=== PATIENT | male | born 1970 | race Caucasian/White ===

== ENCOUNTER → 2018-02-15 12:55 | Outpatient (CLI) | payer BC, SELFPAY ==
[2018-02-15 14:05] LABS: Alanine Aminotransferase 45 U/L (12-78); Albumin Level 4.1 gm/dL (3.4-5.0); Albumin/Globulin Ratio 1.3 (1.1-1.8); Alkaline Phosphatase 130 U/L (46-116); Anion Gap 11.8 mEq/L (5-15); Aspartate Amino Transferase 15 U/L (15-37); Bilirubin,Total 0.7 mg/dL (0.2-1.0); Blood Urea Nitrogen 13 mg/dL (7-18); Calcium 8.8 mg/dL (8.5-10.1); Carbon Dioxide 26 mmol/L (21.0-32.0); Chloride 105 mmol/L (98-107); Chol/HDL Ratio 5.7 (1-3.5); Cholesterol 178 mg/dL (140-200); Creatinine,Serum 0.74 mg/dL (0.70-1.30); Estimated Glomerular Filt Rate 112 ml/min (>60); GFR (African American) 136 ML/MIN (>60); Globulin 3.1 gm/dl (1.3-3.2); Glucose 332 mg/dL (74-106); HDL Cholesterol 31 mg/dL (27-67); LDL Cholesterol 119 mg/dL (0-130); Potassium 3.8 mmoL/L (3.5-5.1); Sodium 139 mmol/L (136-145); Total Protein,Serum 7.2 gm/dL (6.4-8.2); Triglycerides 141 mg/dL (30-200); VLDL Cholesterol 28 mg/dL (0-40)
== END ==
PROVIDERS: Visit Provider Internal Medicine Adolescent Medicine
DX: E11.9 Type 2 diabetes mellitus without complications (principal); E78.5 Hyperlipidemia, unspecified
CPT/HCPCS: 36415; 80053; 80061; 83036

== ENCOUNTER → 2018-03-03 13:00 | Outpatient (CLI) | payer BC, SELFPAY ==
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
== END ==
PROVIDERS: Family Provider Internal Medicine Adolescent Medicine; PCP Internal Medicine Adolescent Medicine; Visit Provider Internal Medicine Adolescent Medicine
DX: M54.41 Lumbago with sciatica, right side (principal)
CPT/HCPCS: 72148; 76376

== ENCOUNTER → 2018-06-28 10:09 | Outpatient (CLI) | payer BC, SELFPAY ==
[2018-06-28 11:42] LABS: Alanine Aminotransferase 47 U/L (12-78); Albumin Level 3.9 gm/dL (3.4-5.0); Albumin/Globulin Ratio 1.3 (1.1-1.8); Alkaline Phosphatase 86 U/L (46-116); Anion Gap 13.4 mEq/L (5-15); Aspartate Amino Transferase 18 U/L (15-37); Bilirubin,Total 0.5 mg/dL (0.2-1.0); Blood Urea Nitrogen 22 mg/dL (7-18); Calcium 8.5 mg/dL (8.5-10.1); Carbon Dioxide 27 mmol/L (21.0-32.0); Chloride 106 mmol/L (98-107); Chol/HDL Ratio 5.1 (1-3.5); Cholesterol 180 mg/dL (140-200); Creatinine,Serum 0.79 mg/dL (0.70-1.30); Estimated Glomerular Filt Rate 104 ml/min (>60); GFR (African American) 126 ML/MIN (>60); Globulin 3.1 gm/dl (1.3-3.2); Glucose 139 mg/dL (74-106); HDL Cholesterol 35 mg/dL (27-67); LDL Cholesterol 121 mg/dL (0-130); Potassium 3.4 mmoL/L (3.5-5.1); Sodium 143 mmol/L (136-145); Triglycerides 122 mg/dL (30-200); VLDL Cholesterol 24 mg/dL (0-40)
[2018-06-28 12:21] LABS: Hemoglobin A1C 6.4 % (0.0-7.0)
[2018-06-30 10:52] LABS: Microalbumin, Urine 20.4 ug/mL (Not Estab.)
== END ==
PROVIDERS: Visit Provider Internal Medicine Adolescent Medicine
DX: E11.9 Type 2 diabetes mellitus without complications (principal); E78.5 Hyperlipidemia, unspecified
CPT/HCPCS: 36415; 80053; 80061; 82043; 83036

== ENCOUNTER → 2018-08-07 12:44 | Outpatient (CLI) | payer BC, SELFPAY ==
--- NOTE | 2018-08-07 12:57 | MR_ITS ---
MR angio neck wo con CLINICAL INDICATION: Severe headache ITS.REASON: NONINTRACTABLE EPISODIC HEADACHE ORDERING PHYSICIAN: Luis A Camilo MD PATIENT AGE: 47 years Comparison: None TECHNIQUE: 3-D yrio-pb-kalpfu images are obtained with multi slab reformats without contrast. FINDINGS: Cervical portion of the carotid arteries have an unremarkable appearance. No stenosis or aneurysm evident. The carotid bifurcations and internal carotids have an unremarkable appearance. Unremarkable. Vertebral. IMPRESSION: Negative MRA of the neck
--- NOTE | 2018-08-07 12:57 | MR_ITS ---
MR head/brain wo con HISTORY: ITS.REASON: NONINTRACTABLE EPISODIC HEADACHE ORDERING PHYSICIAN: Luis A Camilo MD PATIENT AGE: 47 years Comparison: 09/14/2010 TECHNIQUE: Standard multiplanar multiecho sequences are performed without contrast. FINDINGS: No midline shift, mass effect, intracranial hemorrhage, or hydrocephalus is evident. There is a small area of encephalomalacia in the right cerebellum posteriorly and medially. No evidence of acute infarction. Normal wilson-white matter differentiation with no abnormal white matter signal intensity evident. The cerebellopontine angles, cerebellum, and brainstem are unremarkable. The hippocampal gyri are unremarkable and the temporal horns are symmetric. The pituitary and optic size and have an unremarkable appearance. No cerebellar ectopia. No mastoid effusion or sinus air-fluid level IMPRESSION: No acute intracranial findings Small area of encephalomalacia in the right cerebellar region posteriorly unchanged from 09/14/2010
== END ==
PROVIDERS: PCP Internal Medicine Adolescent Medicine; Visit Provider Internal Medicine Adolescent Medicine
DX: R51 Headache (principal); R42 Dizziness and giddiness
CPT/HCPCS: 70547; 70551

== ENCOUNTER → 2018-09-25 09:53 | Outpatient (CLI) | payer BC, SELFPAY ==
[2018-09-25 10:38] LABS: Hemoglobin A1C 7.9 % (0.0-7.0)
[2018-09-25 11:07] LABS: Alanine Aminotransferase 61 U/L (12-78); Albumin Level 3.8 gm/dL (3.4-5.0); Albumin/Globulin Ratio 1.2 (1.1-1.8); Alkaline Phosphatase 134 U/L (46-116); Anion Gap 14.7 mEq/L (5-15); Aspartate Amino Transferase 14 U/L (15-37); Bilirubin,Total 0.5 mg/dL (0.2-1.0); Blood Urea Nitrogen 19 mg/dL (7-18); Calcium 8.5 mg/dL (8.5-10.1); Carbon Dioxide 27 mmol/L (21.0-32.0); Chloride 105 mmol/L (98-107); Chol/HDL Ratio 3.7 (1-3.5); Cholesterol 111 mg/dL (140-200); Creatinine,Serum 0.75 mg/dL (0.70-1.30); Estimated Glomerular Filt Rate 111 ml/min (>60); GFR (African American) 134 ML/MIN (>60); Globulin 3.1 gm/dl (1.3-3.2); Glucose 203 mg/dL (74-106); HDL Cholesterol 30 mg/dL (27-67); LDL Cholesterol 61 mg/dL (0-130); Potassium 3.7 mmoL/L (3.5-5.1); Sodium 143 mmol/L (136-145); Total Protein,Serum 6.9 gm/dL (6.4-8.2); Triglycerides 98 mg/dL (30-200); VLDL Cholesterol 20 mg/dL (0-40)
== END ==
PROVIDERS: Visit Provider Internal Medicine Adolescent Medicine
DX: E11.9 Type 2 diabetes mellitus without complications (principal)
CPT/HCPCS: 36415; 80053; 80061; 83036

== ENCOUNTER → 2018-11-17 10:18 | Outpatient (CLI) | payer BC, SELFPAY ==
[2018-11-17 11:09] LABS: Hemoglobin A1C 8.9 % (0.0-7.0)
[2018-11-17 11:45] LABS: Alanine Aminotransferase 52 U/L (12-78); Albumin Level 3.9 gm/dL (3.4-5.0); Albumin/Globulin Ratio 1.3 (1.1-1.8); Alkaline Phosphatase 122 U/L (46-116); Anion Gap 11.5 mEq/L (5-15); Aspartate Amino Transferase 17 U/L (15-37); Bilirubin,Total 0.6 mg/dL (0.2-1.0); Blood Urea Nitrogen 13 mg/dL (7-18); Calcium 8.6 mg/dL (8.5-10.1); Carbon Dioxide 28 mmol/L (21.0-32.0); Chloride 106 mmol/L (98-107); Chol/HDL Ratio 3.9 (1-3.5); Cholesterol 109 mg/dL (140-200); Creatinine,Serum 0.75 mg/dL (0.70-1.30); Estimated Glomerular Filt Rate 111 ml/min (>60); GFR (African American) 134 ML/MIN (>60); Globulin 2.9 gm/dl (1.3-3.2); Glucose 174 mg/dL (74-106); HDL Cholesterol 28 mg/dL (27-67); LDL Cholesterol 57 mg/dL (0-130); Potassium 3.5 mmoL/L (3.5-5.1); Sodium 142 mmol/L (136-145); Total Protein,Serum 6.8 gm/dL (6.4-8.2); Triglycerides 121 mg/dL (30-200); VLDL Cholesterol 24 mg/dL (0-40)
== END ==
PROVIDERS: Visit Provider Internal Medicine Adolescent Medicine
DX: E78.5 Hyperlipidemia, unspecified (principal); E11.9 Type 2 diabetes mellitus without complications; Z79.4 Long term (current) use of insulin; Z79.84 Long term (current) use of oral hypoglycemic drugs
CPT/HCPCS: 36415; 80053; 80061; 83036

== ENCOUNTER → 2019-07-26 11:09 | Outpatient (CLI) | payer BC, SELFPAY ==
--- NOTE | 2019-07-26 | CA_ITS ---
APPROVED REPORT Exam: Exercise Treadmill Technologist: kia chapin, Ht: 5 ft 8 in Wt: 200 lbs BSA: 2.04 m2 HR: 64 bpm BP: 170/115 mmHg Indications: CP Medical History Medications: Clonidine,,,,, Verapamil,,,,, Asa,,,,, Losartan,,,,, Lipitor,,,,, LanTUS,,,,, Hydroxyzine,,,,, Sertaline,,,,, Allergies: HCTZ Cardiac Risk Factors: HTN, Hyperlipidemia, Diabetes (insulin), FHX of CAD Stress Test Details Test: Bernardo HR Resting HR: 69 bpm Max Heart Rate (APMHR): 170 bpm Max HR Achieved: 132 bpm Target HR (85% APMHR): 144 bpm % of APMHR: 77 Recovery HR: 115 bpm BP Resting BP: 170/115 mmHg Max BP: 192/92 mmHg Recovery BP: 186.0/84.0 mmHg ECG Resting ECG: NSR, can't r/o old septal or high-lateral NV's Clinical Exercise duration: 09:15 min Highest Stage Achieved: Exercise capacity: 10.1 METs Stress ECG Conclusion Test stopped due to SOA and leg fatigue.. No chest pain, No arrhythmias or ectopy. ST within normal ST reponse to exercise. EKG portion of the exercise stress test is nondiagnostic as patient did not achieve the target heart rate. Images reported seperately. Test Summary REST . . . . . . . Standing REST . . . . . . . Sitting REST . . . . . . . Sitting REST 19:14 0.0 0.0 69 . 170/115 . . Stage 1 01:00 10.0 1.7 87 . . . . Stage 1 02:00 10.0 1.7 94 . . . . Stage 1 03:00 10.0 1.7 97 . 164/ 88 . . Stage 2 01:00 12.0 2.5 101 . . . . Stage 2 02:00 12.0 2.5 107 . . . . Stage 2 03:00 12.0 2.5 112 . 170/ 86 . . Stage 3 01:00 14.0 3.4 121 . . . . Stage 3 02:00 14.0 3.4 126 . . . . Stage 3 . . . . . . . Stage held Stage 3 03:00 14.0 3.4 130 . . . . Stage 3 . . . . . . . Stage resumed Stage 3 03:15 14.0 3.4 132 . . . Stop exercise at 09:15 RECOVERY 01:00 0.0 0.0 115 . . . . RECOVERY 02:00 0.0 0.0 94 . 186/ 84 . . RECOVERY 03:00 0.0 0.0 88 . 192/ 92 . . RECOVERY 04:00 0.0 0.0 86 . 192/ 92 . . RECOVERY 05:00 0.0 0.0 84 . 179/101 . . RECOVERY 06:00 0.0 0.0 83 . 179/101 . . RECOVERY 06:33 0.0 0.0 81 . 166/101 . . Electronically signed by : Xander Osman, 07/31/2019 15:29:44
--- NOTE | 2019-07-26 11:17 | NM_ITS ---
APPROVED REPORT Exam: Nuclear Stress Test Indication: abnormal ekg, angina Patient Location: Outpatient Stress Tech: Makenzie Smith [place] Tech:Sonia Johansen ARRVelia RT(R)(N) Ht: 5 ft 8 in Wt: 200 lbs HR: 64 bpm BP: 170/115 mmHg BSA: 2.04 m2 BMI: 30.4 History: abnormal ekg, angina Procedure: Patient exercised on Bernardo protocol 9:15 minutes and sec, resting heart rate 64 bpm, resting blood pressure 170/115 mmHg, with exercise maximum heart rate achived was 108 bpm which is Less than 85 % of the maximum predicted heart rate and blood pressure was 192/86 mmHg. Test was stopped due to Shortness of breath. Patient denied any complaint of chest pain. Patient has Good exercise capacity, achieved 10.1 METs of workload on treadmill, the blood pressure response to exercise was Adequate. Electrocardiogram Sinus rhythm, with exercise there is less than 1.[address] segment depression noted from the baseline EKG. The EKG portion of the exercise Myoview is nondiagnostic as patient did not achieve the target heart rate. Cardiac Stress and Resting SPECT Images: Cardiac Stress and Resting SPECT images were obtained using technetium 99m Myoview 32.9 mCi stress and 10.50 mCi at rest. Gated SPECT with analysis of segmental wall motion and calculation of the ejection fraction also done. Cardiac stress and resting SPECT images show uniform myocardial activity without segmental perfusion abnormality. Computer derived ejection fraction is 65% with no regional wall motion abnormality, right ventricle is normal size and contractility. Conclusion: 1. The EKG portion of the exercise Myoview is nondiagnostic as patient did not achieve the target heart rate, patient has adequate exercise capacity achieved 10.1 mets of workload on treadmill, the blood pressure response to exercise was adequate, there was no exercise-induced chest discomfort. 2. No scintigraphic evidence of reversible ischemia seen at this level of exercise, computer derived ejection fraction is 65% with no regional wall motion abnormality, right ventricle is normal size and contractility. Electronically signed by : Xander Osman, 08/03/2019 11:56:34
--- NOTE | 2019-07-26 13:41 | HMH.ITSHM ---
Current Home Medications as stated by this patient Marcello Gonzalez or asset protection representative. [] losartan varapamil metformin cardvediolo asa atorvastatin sertaline lantus
== END ==
PROVIDERS: PCP Internal Medicine Adolescent Medicine; Visit Provider Internal Medicine Adolescent Medicine
DX: R94.31 Abnormal electrocardiogram [ECG] [EKG] (principal); I20.9 Angina pectoris, unspecified
CPT/HCPCS: 78452; 93017; A9502

== ENCOUNTER → 2020-03-08 07:43 | Outpatient (CLI) | payer BC, SELFPAY ==
[2020-03-08 07:54] LABS: Basophils # 0.1 K/mm3 (0-0.2); Basophils % 0.9 % (0.1-2.0); Eosinophils # 0.2 K/mm3 (0.0-0.4); Eosinophils % 2.8 % (0.1-12.0); Hematocrit 42.9 % (42.0-52.0); Hemoglobin 15.3 g/dL (14.1-18.0); Lymphocytes # 1.8 K/mm3 (0.7-4.5); Lymphocytes % 27.1 % (10-50); Mean Corpuscular HGB Conc 35.6 g/dL (31.8-35.4); Mean Corpuscular Hemoglobin 32.7 pg (27.0-31.2); Mean Corpuscular Volume 91.9 fl (80-94); Mean Platelet Volume 7.7 fl (7.4-10.4); Monocytes # 0.4 K/mm3 (0.1-1.0); Monocytes % 6.3 % (1.7-9.3); Neutrophils # 4.2 K/mm3 (1.8-7.8); Platelet Count 146 K/mm3 (142-424); Red Blood Count 4.67 M/mm3 (4.60-6.20); Red Cell Distribution Width 13.1 % (11.5-17.5); White Blood Count 6.7 K/mm3 (4.8-10.8)
[2020-03-08 08:16] LABS: Chloride 97 mmol/L (98-107); Potassium 3.7 mmoL/L (3.5-5.1); Sodium 134 mmol/L (136-145)
[2020-03-08 08:19] LABS: Anion Gap 13.7 mEq/L (5-15); Blood Urea Nitrogen 13 mg/dl (9-20); Carbon Dioxide 27 mmol/L (22.0-30.0); Estimated Glomerular Filt Rate 175 ml/min (>60); GFR (African American) 212 ML/MIN (>60)
[2020-03-08 08:30] LABS: Glucose 494 mg/dl (74-100)
[2020-03-08 09:28] LABS: Coronavirus 19 IgG Antibody Negative (Negative); Coronavirus 19 IgM Antibody Negative (Negative)
== END ==
PROVIDERS: Visit Provider Urology
DX: Z01.818 Encounter for other preprocedural examination (principal); N47.1 Phimosis
CPT/HCPCS: 36415; 80048; 85025; 86328

== ENCOUNTER 2020-03-10 08:59 | Day surgery (SDC) | payer BC, SELFPAY ==
[2020-03-10] VITALS (12 sets, daily range): BP systolic 118–190; BP diastolic 78–103; PULSE 72–80; RESP 12–28; TEMP 22.2–36.7; O2SAT 89–99; BMI 29.2
[2020-03-10 10:24] LABS: POC Glucose,Bedside 240 (70-110)
--- NOTE | 2020-03-10 11:18 | HMH.ANESCL ---
[facility] Anesthesia Checklist - Structural Data Admitted From: Home Planned Operative Procedure/s: circumcision Consent for Planned Operative Procedure(s) Verified: Yes - Additional verifications Anesthesia Reactions: No Hx Blood Transfusions: Yes Blood Transfusion Reaction: No - Airway Assessment C-Spine Mobility Assessed: Yes TMJ Mobility Assessed: Yes Dentition: Good Dentition - Neurological Assessment Level of Consciousness: Awake, Alert, Appropriate - Anesthesia Plan Anesthesia Risk discussed: Yes Anesthesia Plan: Verified ASA Class: II Anesthesia Type: General [facility] History I have reviewed the patient's past medical history: Yes Medical History: Reports:: Depression, Diabetes Mellitus Type 2, Hyperlipidemia, Hypertension Denies:: Cancer, Diabetes Mellitus Type 1, Internal Pacemaker, MRSA, Seizures *Have you ever received a pneumonia vaccine?: No *Have you received a flu vaccine this season?: Yes Other Medical History: Denies: Blood Transfusion Reaction Anesthesia experience/problems:: none Other Surgeries: Yes: No Previous Surgery. No: Pacemaker Amputation: No Fractures: No - *Social History Last grade of school completed: High school graduate Smoking Status: Never smoker Alcohol Intake: never Substance Use Type: denies use *Occupational Status:: employed Housing: house Household Members: spouse *Travel in the last 8 weeks: Inside the [place] - Psychiatric History Pschychiatric History:: Reports:: Depression Family Hx:: Coronary Artery Disease, Diabetes, Heart Attack
--- NOTE | 2020-03-10 12:39 | P.PN_ITS ---
[facility] Anesthesia Record Part I Intake, IV Amount: 1,500 Estimated blood loss (mL): 0 Urine output (mL): 0 Blood Pressure: 118/79 SaO2: 94 Pulse Rate: 72 Respiratory Rate: 12 Temperature: 97.7 F Patient is:: Awake, Stable Stable to PACU at:: 13:35
--- NOTE | 2020-03-10 16:29 | HMH.ANESII ---
[facility] Anesthesia Record Part II Discharge Time: 13:05 Destination: Surgical Day Care (OP Surgery) PACU nurse assessment reviewed?: Yes Patient Condition:: Good Anesthesia Complications:: None Swallowing reflex intact?: Yes Cyanosis?: No Blood Pressure: 140/88 Pulse Rate: 77 Temperature: 98 F Mental Status: Alert & Oriented Pain level:: 0 Nausea and/or vomitting:: None Intake, IV Amount: 0
--- NOTE | 2020-03-10 16:59 | HMH.OPNOTE ---
Date of procedure: 03/10/20 Pre-op Diagnosis:: Penile phimosis Post-op Diagnosis:: Same Procedure performed:: Freehand circumcision Surgeon:: Aron Kahn MD OFFICE MANAGER EXECUTIVE ASSISTANT:: Marciano Hines Anesthesia: FLAKITA Estimated blood loss (mL): 10 Clinical Note:: 49-year-old white male with phimosis presents for circumcision. Operative findings:: Patient with penile phimosis. After incising the dorsal skin there is no evidence of any penile glans abnormalities. Operative note:: Patient taken to the operating room after informed consent was obtained. The operating table in the supine position and general anesthesia administered. Preoperative antibiotics and sequential compression devices placed. Patient then prepped and draped in the standard surgical fashion. A ring block was placed around the base of the penis with 30 cc of the local anesthetic. The foreskin was marked and a circular line while pulling back on the penile foreskin at the base of the penis and outlining around the branham of the glans. A straight clamp was then placed onto the dorsal foreskin back to the marked line and clamped for 30 seconds. Incision was then made along the skin that had been clamped. Minimal bleeding was noted. We then pulled the foreskin back and cleansed the glans as we are unable to do that before. We then pulled the foreskin back over the glans and Metzenbaum scissors used to incise the skin in a circumferential fashion. Skin was passed off but not sent for specimen as it appeared normal. Hemostasis been achieved of the underlying vasculature and a frenulotomy was made as well due to tethering. Skin was then reanastomosed with 3-0 chromic's. Frenulotomy was repaired with a 4-0 chromic. A good cosmetic result was noted. Compression dressing applied and over a Vaseline impregnated gauze. Sponge needle instrument count were correct at the end the case. Patient tolerated well and discharged home with routine instructions and medications. Condition: stable Disposition: PACU Specimens:: Foreskin Complications:: None
== END 2020-03-10 13:43 | disposition home or self-care (01) ==
PROVIDERS: PCP Internal Medicine Adolescent Medicine; Visit Provider Urology
PROC: (CPT 54161; principal; 2020-03-10 11:00)
DX: N47.1 Phimosis (principal); E11.9 Type 2 diabetes mellitus without complications; E78.5 Hyperlipidemia, unspecified; I10 Essential (primary) hypertension; F32.9 Major depressive disorder, single episode, unspecified; Z88.8 Allergy status to other drugs, medicaments and biological substances; Z79.82 Long term (current) use of aspirin; Z79.84 Long term (current) use of oral hypoglycemic drugs; Z79.899 Other long term (current) drug therapy; N48.1 Balanitis
CPT/HCPCS: 54161; 82962; 96374; J2405

== ENCOUNTER 2021-01-11 16:43 | Emergency (ER) | payer BC, SELFPAY ==
[2021-01-11 16:45] VITALS: BP 211/127; PULSE 98; RESP 18; TEMP 36.8; O2SAT 99; BMI 28.5
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
[2021-01-11 18:26] VITALS: BP 193/122
[2021-01-11 19:16] VITALS: BP 182/125; PULSE 85; RESP 16; TEMP 36.8; O2SAT 97
== END 2021-01-11 19:20 | disposition home or self-care (01) ==
PROVIDERS: Emergency Provider Emergency Medicine; PCP Internal Medicine Adolescent Medicine
DX: S00.83XA Contusion of other part of head, initial encounter (principal); S40.212A Abrasion of left shoulder, initial encounter; S00.03XA Contusion of scalp, initial encounter; V53.6XXA Passenger in pick-up truck or van injured in collision with car, pick-up truck or van in traffic accident, initial encounter; Y92.488 Other paved roadways as the place of occurrence of the external cause
CPT/HCPCS: 70150; 71046; 73030; 99282

== ENCOUNTER → 2021-07-01 16:52 | Outpatient (CLI) | payer BC, SELFPAY | PROVIDERS: PCP Internal Medicine Adolescent Medicine; Visit Provider Nurse Practitioner | DX: Z20.822 Contact with and (suspected) exposure to COVID-19 (principal) | CPT/HCPCS: C9803; U0003; U0005 ==

== ENCOUNTER → 2022-01-16 11:34 | Outpatient (CLI) | payer BC, SELFPAY ==
[2022-01-16 15:24] LABS: Alanine Aminotransferase 28 U/L (12-78); Albumin Level 3.9 g/dl (3.5-5.0); Albumin/Globulin Ratio 1.6 (1.1-1.8); Alkaline Phosphatase 93 U/L (38-126); Aspartate Amino Transferase 23 U/L (17-59); Bilirubin,Total 0.2 mg/dl (0.2-1.3); Blood Urea Nitrogen 19 mg/dl (9-20); Carbon Dioxide 33 mmol/L (22.0-30.0); Chloride 98 mmol/L (98-107); Estimated Glomerular Filt Rate 88 ml/min (>60); GFR (African American) 107 ML/MIN (>60); Globulin 2.5 g/dL (1.3-3.2); Glucose 251 mg/dl (74-100); Sodium 140 mmol/L (136-145); Total Protein,Serum 6.4 g/dl (6.3-8.2)
== END ==
PROVIDERS: PCP Internal Medicine Adolescent Medicine; Visit Provider Internal Medicine Adolescent Medicine
DX: E87.6 Hypokalemia (principal); E11.9 Type 2 diabetes mellitus without complications
CPT/HCPCS: 36415; 80053; 83036

== ENCOUNTER 2022-02-16 20:06 | Emergency (ER) | payer BC, SELFPAY ==
[2022-02-16 20:07] VITALS: BP 180/112; PULSE 100; RESP 16; TEMP 36.8; O2SAT 100; BMI 28.1
[2022-02-16 20:14] VITALS: BMI 28.1
--- NOTE | 2022-02-16 20:14 | CT_ITS ---
PROCEDURE INFORMATION: Exam: CT Abdomen And Pelvis With Contrast Exam date and time: 02/16/2022 9:02 PM Age: 51 years old Clinical indication: Constipation; Abdominal pain; Generalized; Prior surgery; Surgery type: Appendix; Additional info: Abdominal pain/constipation x 5 days. TECHNIQUE: Imaging protocol: Computed tomography of the abdomen and pelvis with contrast. Radiation optimization: All CT scans at this facility use at least one of these dose optimization techniques: automated exposure control; mA and/or kV adjustment per patient size (includes targeted exams where dose is matched to clinical indication); or iterative reconstruction. Contrast material: ISOVUE; Contrast volume: 75 ml; Contrast route: IV; COMPARISON: RUQ US RUQ-(ABD LTD)1ORGAN/QUAD/FU 12/06/2016 8:26 AM FINDINGS: Liver: Normal. No mass. Gallbladder and bile ducts: No calcified stones. No ductal dilation. Pancreas: Normal enhancement. No ductal dilation. Spleen: There are multiple splenic calcifications likely on the basis of prior granulomatous exposure. Adrenal glands: No mass. Kidneys and ureters: No hydronephrosis. Stomach and bowel: No obstruction. No mucosal thickening. Appendix: No evidence of appendicitis. Intraperitoneal space: No free air. No significant fluid collection. Vasculature: No abdominal aortic aneurysm. Mild calcified atherosclerosis Lymph nodes: No enlarged lymph nodes. Urinary bladder: Bladder wall is mildly thickened measuring 7 mm. Reproductive: Prostatic calcifications. Bones/joints: No acute fracture. Soft tissues: No soft tissue swelling. IMPRESSION: Bladder wall is mildly thickened for which correlation with UA is recommended. Mucosal mass cannot be radiographically excluded.
[2022-02-16 20:26] VITALS: BP 158/106; PULSE 100; O2SAT 98
--- NOTE | 2022-02-16 20:28 | HMH.EDNVD ---
ED Disposition Clinical Impression: Constipation Qualifiers: Constipation type: unspecified constipation type Qualified Code(s): K59.00 - Constipation, unspecified Diabetes mellitus Qualifiers: Diabetes mellitus type: type 2 Diabetes mellitus termite treater insulin use: unspecified halfway insulin use status Diabetes mellitus complication status: with other specified complication Qualified Code(s): E11.69 - Type 2 diabetes mellitus with other specified complication Disposition: Home, Self-Care Condition on Discharge: Good Instructions: DI for Constipation Additional Instructions: use meds and see pcp for follow up Prescriptions: polyethylene glycoL 3350 [Miralax 17gm Packet] 17 gm PO HS #30 packet Transmission Status: Pending to [id number]/Sod Sul/NaCl/Asb/C/KCl [Moviprep kit 2000mL] 1 each PO ONCE 1 Days #1 each Transmission Status: Pending to [id number] Referrals: Luis A Camilo MD [Primary Care Provider] - - Critical Care Critical Care Time: No Attestation: On 02/16/22, the high probability of a clinically significant, sudden or life threatening deterioration of the following system(s) required my full and direct attention, intervention and personal management. The time I documented below is in addition to time spent performing reported procedures but includes the following listed in this critical care notation. Medical Decision Making - Medical Records Medical records reviewed: Yes: I reviewed the patient's medical records. - Berhane Inquiry Pt receiving controlled substance: No Vital Signs: 02/16/22 20:07 02/16/22 20:26 02/16/22 20:30 Temperature 98.3 F Temperature Source Oral Pulse Rate 100 H 101 H Pulse Rate [Left Radial] 100 H Respiratory Rate 16 Blood Pressure 158/106 H 144/106 H Blood Pressure [Right Arm] 180/112 H Blood Pressure Mean 120 118 Blood Pressure Mean [Right Arm] 134 Blood Pressure Source [Right Arm] Automatic Cuff Blood Pressure Position [Right Arm] Sitting 02 Sat by Pulse Oximetry 100 98 99 Oxygen Delivery Method Room Air 02/16/22 21:00 02/16/22 22:00 Temperature Temperature Source Pulse Rate 95 H 83 Pulse Rate [Left Radial] Respiratory Rate Blood Pressure 182/115 H 184/95 H Blood Pressure [Right Arm] Blood Pressure Mean 137 142 Blood Pressure Mean [Right Arm] Blood Pressure Source [Right Arm] Blood Pressure Position [Right Arm] 02 Sat by Pulse Oximetry 98 99 Oxygen Delivery Method - Lab Data Lab results reviewed: Yes: I reviewed the patient's lab results. Lab Results 02/16/22 20:30: WBC 6.1, RBC 5.03, Hgb 15.5, Hct 43.7, MCV 87.0, MCH 30.9, MCHC 35.5 H, RDW 13.6, Plt Count 217, MPV 6.9 L, Neut % (Auto) 65.0, Lymph % (Auto) 20.4, [place] % (Auto) 10.9 H, Eos % (Auto) 2.5, Baso % (Auto) 1.2, Neut # (Auto) 3.9, Lymph # (Auto) 1.2, [place] # (Auto) 0.7, Eos # (Auto) 0.2, Baso # (Auto) 0.1, ESR 46 H 02/16/22 20:30: Sodium 138, Potassium 4.0, Chloride 96 L, Carbon Dioxide 33 H, Anion Gap 13.0, BUN 14, Creatinine 0.80, Estimated Creat Clear 127, Estimated GFR 101, Est GFR ( Amer) 122, Glucose 242 H, Calcium 9.1, Total Bilirubin 0.9, AST 25, ALT 26, Alkaline Phosphatase 105, C-Reactive Protein 0.9, Total Protein 7.5, Albumin 4.3, Globulin 3.2, Albumin/Globulin Ratio 1.3, Procalcitonin 0.068 02/16/22 20:30: TSH 1.52, Thyroxine (T4) 11.3 H 02/16/22 20:30: Hemoglobin A1c 9.0 H 02/16/22 22:15: Urine Color Yellow, Urine Appearance Clear, Urine pH 6.5, Ur Specific [place] 1.010, Urine Protein Negative, Urine Glucose (UA) 1+, Urine Ketones 1+, Urine Blood Negative, Urine Nitrate Negative, Urine Bilirubin Negative, Urine Urobilinogen 0.2, Ur Leukocyte Esterase Negative, Ur Squamous Epith Cells Occasional, Amorphous Sediment Trace, Urine Bacteria Trace 02/16/22 22:29: Stool Occult Blood Negative Result diagrams: 02/16/22 20:30 02/16/22 20:30 Orders (Tests/Meds): ED MEDICATIONS Generic Name Dose Route Sta
[2022-02-16 20:30] VITALS: BP 144/106; PULSE 101; O2SAT 99
[2022-02-16 20:44] LABS: Basophils # 0.1 K/mm3 (0-0.2); Basophils % 1.2 % (0.1-2.0); Eosinophils # 0.2 K/mm3 (0.0-0.4); Eosinophils % 2.5 % (0.1-12.0); Hematocrit 43.7 % (42.0-52.0); Hemoglobin 15.5 g/dL (14.1-18.0); Lymphocytes # 1.2 K/mm3 (0.7-4.5); Lymphocytes % 20.4 % (10-50); Mean Corpuscular HGB Conc 35.5 g/dL (31.8-35.4); Mean Corpuscular Hemoglobin 30.9 pg (27.0-31.2); Mean Platelet Volume 6.9 fl (7.4-10.4); Monocytes # 0.7 K/mm3 (0.1-1.0); Monocytes % 10.9 % (1.7-9.3); Neutrophils # 3.9 K/mm3 (1.8-7.8); Platelet Count 217 K/mm3 (142-424); Red Blood Count 5.03 M/mm3 (4.60-6.20); Red Cell Distribution Width 13.6 % (11.5-17.5); White Blood Count 6.1 K/mm3 (4.8-10.8)
[2022-02-16 20:50] LABS: Alanine Aminotransferase 26 U/L (12-78); Albumin Level 4.3 g/dl (3.5-5.0); Albumin/Globulin Ratio 1.3 (1.1-1.8); Alkaline Phosphatase 105 U/L (38-126); Aspartate Amino Transferase 25 U/L (17-59); Bilirubin,Total 0.9 mg/dl (0.2-1.3); Blood Urea Nitrogen 14 mg/dl (9-20); Calcium 9.1 mg/dl (8.4-10.2); Carbon Dioxide 33 mmol/L (22.0-30.0); Chloride 96 mmol/L (98-107); Creatinine Clearance Estimated 127 mL/min (50-200); Estimated Glomerular Filt Rate 101 ml/min (>60); GFR (African American) 122 ML/MIN (>60); Globulin 3.2 g/dL (1.3-3.2); Glucose 242 mg/dl (74-100); Sodium 138 mmol/L (136-145); Total Protein,Serum 7.5 g/dl (6.3-8.2)
[2022-02-16 20:56] LABS: C-Reactive Protein 0.9 mg/L (0-4)
[2022-02-16 21:00] VITALS: BP 182/115; PULSE 95; O2SAT 98
[2022-02-16 21:10] LABS: Procalcitonin 0.068 ng/mL (0.0-2.0)
--- NOTE | 2022-02-16 21:15 | PC.NURSE ---
PT AND FAMILY UPDATED WITH EXPECTED WAIT TIMES. NO ACUTE DISTRESS NOTED. WCM.
[2022-02-16 21:16] LABS: T4 (Thyroxine) 11.3 ug/dl (5.53-11.0)
[2022-02-16 21:30] LABS: Thyroid Stimulating Hormone 1.52 uIU/mL (0.465-4.68)
[2022-02-16 21:50] LABS: Erythrocyte Sedimentation Rate 46 mm/hr (0-20)
[2022-02-16 22:00] VITALS: BP 184/95; PULSE 83; O2SAT 99
[2022-02-16 22:19] LABS: Microscopic, Urine URINE MICROSCOPIC (MICROSCOPIC)
[2022-02-16 22:39] LABS: Appearance,Urine CLEAR (Clear); Bilirubin,Urine Negative (Negative); Blood, Urine Negative (Negative); Color,Urine YELLOW (Yellow); Glucose,Urine (UA) 1+ (Negative); Ketones,Urine 1+ (Negative); Leukocyte Esterase,Urine Negative (Negative); Nitrate,Urine Negative (Negative); PH,Urine 6.5 (5.0-8.5); Protein,Urine Negative (Negative); Urobilinogen,Urine 0.2 EU/dl (0.2)
[2022-02-16 22:57] LABS: Occult Blood,Stool Negative (Negative)
[2022-02-16 23:02] LABS: Amorphous Sediment,Urine Trace /lpf; Bacteria,Urine Trace /lpf; Squamous Epithelial Cell,Urine Occasional #/hpf (0-5)
[2022-02-16 23:35] VITALS: BP 184/95; PULSE 83; RESP 18; TEMP 36.8; O2SAT 99
== END 2022-02-16 23:37 | disposition home or self-care (01) ==
PROVIDERS: Emergency Provider Emergency Medicine; PCP Internal Medicine Adolescent Medicine
DX: K59.00 Constipation, unspecified (principal); E11.69 Type 2 diabetes mellitus with other specified complication; Z79.4 Long term (current) use of insulin; Z79.82 Long term (current) use of aspirin; Z79.899 Other long term (current) drug therapy; Z79.84 Long term (current) use of oral hypoglycemic drugs; Z88.8 Allergy status to other drugs, medicaments and biological substances; I10 Essential (primary) hypertension; E78.5 Hyperlipidemia, unspecified; F32.A Depression, unspecified
CPT/HCPCS: 74177; 80053; 81001; 82272; 83036; 84145; 84436; 84443; 85025; 85651; 86140; 96365; 96366; 99284; G0328; Q9967

== ENCOUNTER 2022-02-23 21:33 | Emergency (ER) | payer BC, SELFPAY ==
[2022-02-23 21:35] VITALS: BP 182/126; PULSE 81; RESP 16; TEMP 37.1; O2SAT 99; BMI 27.8
--- NOTE | 2022-02-23 22:43 | HMH.EDNVD ---
ED Disposition Clinical Impression: Abdominal pain Qualifiers: Abdominal location: generalized Qualified Code(s): R10.84 - Generalized abdominal pain Disposition: Home, Self-Care Condition on Discharge: Fair Instructions: DI for Acute Abdominal Pain Additional Instructions: call pcp for follow up Referrals: Luis A Camilo MD [Primary Care Provider] - - Critical Care Critical Care Time: No Attestation: On 02/23/22, the high probability of a clinically significant, sudden or life threatening deterioration of the following system(s) required my full and direct attention, intervention and personal management. The time I documented below is in addition to time spent performing reported procedures but includes the following listed in this critical care notation. Medical Decision Making - Medical Records Medical records reviewed: Yes: I reviewed the patient's medical records. - Berhane Inquiry Pt receiving controlled substance: No Vital Signs: 02/23/22 21:35 Temperature 98.8 F Temperature Source Oral Pulse Rate [Left] 81 Respiratory Rate 16 Blood Pressure [Right Arm] 182/126 H Blood Pressure Mean [Right Arm] 144 02 Sat by Pulse Oximetry 99 Oxygen Delivery Method Room Air - Lab Data Lab results reviewed: Yes: I reviewed the patient's lab results. Lab Results 02/23/22 21:40: Urine Color Yellow, Urine Appearance Clear, Urine pH 6.0, Ur Specific [place] 1.015, Urine Protein Negative, Urine Glucose (UA) 3+, Urine Ketones Negative, Urine Blood Negative, Urine Nitrate Negative, Urine Bilirubin Negative, Urine Urobilinogen 0.2, Ur Leukocyte Esterase Negative, Urine RBC None, Urine WBC Occasional, Ur Squamous Epith Cells Occasional, Urine Bacteria None 02/23/22 23:00: WBC 5.7, RBC 4.28 L, Hgb 13.3 L, Hct 38.6 L, MCV 90.2, MCH 31.0, MCHC 34.4, RDW 13.3, Plt Count 163, MPV 7.4, Neut % (Auto) 61.3, Lymph % (Auto) 23.3, [place] % (Auto) 11.2 H, Eos % (Auto) 3.4, Baso % (Auto) 0.9, Neut # (Auto) 3.5, Lymph # (Auto) 1.3, [place] # (Auto) 0.6, Eos # (Auto) 0.2, Baso # (Auto) 0.1 02/23/22 23:00: Sodium 136, Potassium 3.7, Chloride 100, Carbon Dioxide 31 H, Anion Gap 8.7, BUN 7 L, Creatinine 0.60 L, Estimated Creat Clear 167, Estimated GFR 141, Est GFR ( Amer) 171, Glucose 312 H, Calcium 8.9, Total Bilirubin 0.6, AST 57, ALT 51, Alkaline Phosphatase 94, Total Protein 6.8, Albumin 4.2, Globulin 2.6, Albumin/Globulin Ratio 1.6 02/23/22 23:00: Lipase 87 Result diagrams: 02/23/22 23:00 02/23/22 23:00 Orders (Tests/Meds): ED MEDICATIONS Generic Name Dose Route Start Last Admin Trade Name Freq PRN Reason Stop Dose Admin Sodium Chloride 500 mls @ 999 mls/hr 02/23/22 23:00 02/23/22 23:06 Sod Chlor 0.9% 1000ml Bag IV 02/23/22 23:30 999 mls/hr .Q31M LUISA Administration Sodium Chloride 10 ml 02/23/22 22:46 Sodium Chloride 0.9% 10ml Flush Syringe IV 03/25/22 22:45 NEEDED PRN Maintain IV Site Discontinued Medications Generic Name Dose Route Start Last Admin Trade Name Freq PRN Reason Stop Dose Admin Iopamidol 75 ml 02/24/22 00:19 02/24/22 00:21 Iopamidol-370 (76%);100ml Bottle IV 02/24/22 00:20 75 ml ONCE ONE Administration Morphine Sulfate 4 mg 02/24/22 04:34 02/24/22 04:41 Morphine 4mg/Ml Syringe IV 02/24/22 04:35 4 mg ONCE ONE Administration Ondansetron HCl 4 mg 02/24/22 04:34 02/24/22 04:41 Ondansetron 4mg/2ml Vial IV 02/24/22 04:35 4 mg ONCE ONE Administration Sodium Chloride 10 ml 02/24/22 00:19 02/24/22 00:20 Sodium Chloride 0.9% 10ml Syr (Rad Only) IV 02/24/22 00:20 10 ml ONCE ONE Administration - CT Data CT Scan: Abdomen, Pelvis Time Received: 06:[address] Reviewed: Yes: I have viewed the radiologist's interpretation Preliminary Findings: Abnormal (see report ) Medical Decision Narrative: has new onset of constipation with no def obstruction and may require colonoscopy and egd - stable exam and labs and vital sirns Nausea/
[2022-02-23 23:43] LABS: Basophils # 0.1 K/mm3 (0-0.2); Basophils % 0.9 % (0.1-2.0); Eosinophils # 0.2 K/mm3 (0.0-0.4); Eosinophils % 3.4 % (0.1-12.0); Hematocrit 38.6 % (42.0-52.0); Hemoglobin 13.3 g/dL (14.1-18.0); Lymphocytes # 1.3 K/mm3 (0.7-4.5); Lymphocytes % 23.3 % (10-50); Mean Corpuscular HGB Conc 34.4 g/dL (31.8-35.4); Mean Corpuscular Volume 90.2 fl (80-94); Mean Platelet Volume 7.4 fl (7.4-10.4); Monocytes # 0.6 K/mm3 (0.1-1.0); Monocytes % 11.2 % (1.7-9.3); Neutrophils # 3.5 K/mm3 (1.8-7.8); Neutrophils % 61.3 % (37.0-80.0); Platelet Count 163 K/mm3 (142-424); Red Blood Count 4.28 M/mm3 (4.60-6.20); Red Cell Distribution Width 13.3 % (11.5-17.5); White Blood Count 5.7 K/mm3 (4.8-10.8)
[2022-02-23 23:59] LABS: Chloride 100 mmol/L (98-107); Potassium 3.7 mmoL/L (3.5-5.1); Sodium 136 mmol/L (136-145)
--- NOTE | 2022-02-24 | CT_ITS ---
PROCEDURE INFORMATION: Exam: CT Abdomen And Pelvis With Contrast Exam date and time: 02/24/2022 12:10 AM Age: 51 years old Clinical indication: Abdominal pain; Localized; Left; Prior surgery; Surgery date: 6+ months; Surgery type: Appendectomy; Additional info: Ian ramirez TECHNIQUE: Imaging protocol: Computed tomography of the abdomen and pelvis with contrast. Radiation optimization: All CT scans at this facility use at least one of these dose optimization techniques: automated exposure control; mA and/or kV adjustment per patient size (includes targeted exams where dose is matched to clinical indication); or iterative reconstruction. Contrast material: ISOVUE; Contrast volume: 75 ml; Contrast route: IV; COMPARISON: CT ABDOMEN PELVIS W CON 02/16/2022 9:02 PM FINDINGS: Lungs: Dependent atelectasis and scarring. Lung bases are negative for dominant mass or airspace consolidation. Heart: Minimal calcifications of coronary arteries. Mediastinal space: Abnormal mucosal thickening of the lower esophagus may reflect reflux esophagitis or malignancy. Follow-up with endoscopy. Liver: Normal. No mass. Gallbladder and bile ducts: Normal. No calcified stones. No ductal dilation. Pancreas: Normal. No ductal dilation. Spleen: Punctate calcified granulomas are identified within the otherwise unremarkable spleen. Adrenal glands: Normal. No mass. Kidneys and ureters: Normal. No hydronephrosis. Stomach and bowel: There is an element of malrotation with the colon on the left. Appendix: No evidence of appendicitis. Intraperitoneal space: Unremarkable. No free air. No significant fluid collection. Vasculature: Calcifications within aorta and its branches. Lymph nodes: Unremarkable. No enlarged lymph nodes. Urinary bladder: Unremarkable as visualized. Reproductive: Unremarkable as visualized. Bones/joints: Diffuse degenerative disc and facet disease result in multilevel central and foraminal stenosis within the lower lumbar spine. Osteophytosis and eburnation of the sacroiliac joints and hips. Soft tissues: Unremarkable. IMPRESSION: 1. Urinary bladder appears unremarkable on today's exam. 2. Abnormal mucosal thickening of the lower esophagus may reflect reflux esophagitis or malignancy. Follow-up with endoscopy. 3. 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 4. Diffuse degenerative disc and facet disease result in multilevel central and foraminal stenosis within the lower lumbar spine.
[2022-02-24 00:02] LABS: Alanine Aminotransferase 51 U/L (12-78); Albumin Level 4.2 g/dl (3.5-5.0); Albumin/Globulin Ratio 1.6 (1.1-1.8); Alkaline Phosphatase 94 U/L (38-126); Anion Gap 8.7 mEq/L (5-15); Aspartate Amino Transferase 57 U/L (17-59); Bilirubin,Total 0.6 mg/dl (0.2-1.3); Blood Urea Nitrogen 7 mg/dl (9-20); Calcium 8.9 mg/dl (8.4-10.2); Carbon Dioxide 31 mmol/L (22.0-30.0); Creatinine Clearance Estimated 167 mL/min (50-200); Estimated Glomerular Filt Rate 141 ml/min (>60); GFR (African American) 171 ML/MIN (>60); Globulin 2.6 g/dL (1.3-3.2); Glucose 312 mg/dl (74-100); Total Protein,Serum 6.8 g/dl (6.3-8.2)
[2022-02-24 00:03] LABS: Lipase 87 U/L (23-300)
--- NOTE | 2022-02-24 02:58 | PC.NURSE ---
pt updated on wait time, plan of care and lab times
[2022-02-24 03:41] LABS: Microscopic, Urine URINE MICROSCOPIC (MICROSCOPIC)
[2022-02-24 04:09] LABS: Appearance,Urine CLEAR (Clear); Bilirubin,Urine Negative (Negative); Blood, Urine Negative (Negative); Color,Urine YELLOW (Yellow); Glucose,Urine (UA) 3+ (Negative); Ketones,Urine Negative (Negative); Leukocyte Esterase,Urine Negative (Negative); Nitrate,Urine Negative (Negative); Protein,Urine Negative (Negative); Specific Gravity, Urine 1.015 (1.005-1.030); Urobilinogen,Urine 0.2 EU/dl (0.2)
[2022-02-24 04:26] LABS: Squamous Epithelial Cell,Urine Occasional #/hpf (0-5); WBC,Urine Occasional #/hpf (0-3)
[2022-02-24 06:02] VITALS: BP 160/98; PULSE 75; RESP 20; TEMP 36.9; O2SAT 98
== END 2022-02-24 06:21 | disposition home or self-care (01) ==
PROVIDERS: Emergency Provider Emergency Medicine; PCP Internal Medicine Adolescent Medicine
DX: R10.84 Generalized abdominal pain (principal); M54.9 Dorsalgia, unspecified; I10 Essential (primary) hypertension; E78.5 Hyperlipidemia, unspecified; E11.9 Type 2 diabetes mellitus without complications; F32.A Depression, unspecified; Z79.4 Long term (current) use of insulin; Z79.82 Long term (current) use of aspirin; Z79.84 Long term (current) use of oral hypoglycemic drugs; Z79.899 Other long term (current) drug therapy; Z88.8 Allergy status to other drugs, medicaments and biological substances; Z82.49 Family history of ischemic heart disease and other diseases of the circulatory system; Z83.438 Family history of other disorder of lipoprotein metabolism and other lipidemia
CPT/HCPCS: 74177; 80053; 81001; 83690; 85025; 96374; 96375; 99285; J2405; Q9967

== ENCOUNTER → 2022-03-20 09:51 | Outpatient (CLI) | payer BC, SELFPAY ==
[2022-03-20 10:03] LABS: Basophils # 0.1 K/mm3 (0-0.2); Basophils % 1.3 % (0.1-2.0); Eosinophils # 0.1 K/mm3 (0.0-0.4); Eosinophils % 1.8 % (0.1-12.0); Hematocrit 43.4 % (42.0-52.0); Hemoglobin 14.5 g/dL (14.1-18.0); Lymphocytes # 1.2 K/mm3 (0.7-4.5); Lymphocytes % 15.5 % (10-50); Mean Corpuscular HGB Conc 33.3 g/dL (31.8-35.4); Mean Corpuscular Hemoglobin 31.3 pg (27.0-31.2); Mean Platelet Volume 8.2 fl (7.4-10.4); Monocytes # 0.6 K/mm3 (0.1-1.0); Monocytes % 8.3 % (1.7-9.3); Neutrophils # 5.6 K/mm3 (1.8-7.8); Neutrophils % 73.2 % (37.0-80.0); Platelet Count 217 K/mm3 (142-424); Red Blood Count 4.62 M/mm3 (4.60-6.20); Red Cell Distribution Width 13.6 % (11.5-17.5); White Blood Count 7.7 K/mm3 (4.8-10.8)
[2022-03-20 10:38] LABS: Hemoglobin A1C 8.7 % (4.0-6.0)
[2022-03-20 11:35] LABS: Alanine Aminotransferase 44 U/L (12-78); Albumin Level 3.9 g/dl (3.5-5.0); Albumin/Globulin Ratio 1.6 (1.1-1.8); Alkaline Phosphatase 86 U/L (38-126); Anion Gap 11.1 mEq/L (5-15); Aspartate Amino Transferase 23 U/L (17-59); Bilirubin,Total 1.1 mg/dl (0.2-1.3); Blood Urea Nitrogen 12 mg/dl (9-20); Carbon Dioxide 29 mmol/L (22.0-30.0); Chloride 99 mmol/L (98-107); Estimated Glomerular Filt Rate 141 ml/min (>60); GFR (African American) 171 ML/MIN (>60); Globulin 2.4 g/dL (1.3-3.2); Glucose 221 mg/dl (74-100); Potassium 3.1 mmoL/L (3.5-5.1); Sodium 136 mmol/L (136-145); Total Protein,Serum 6.3 g/dl (6.3-8.2)
== END ==
PROVIDERS: PCP Internal Medicine Adolescent Medicine; Visit Provider Internal Medicine Adolescent Medicine
DX: E11.9 Type 2 diabetes mellitus without complications; Z79.4 Long term (current) use of insulin; R10.9 Unspecified abdominal pain
CPT/HCPCS: 36415; 80053; 83036; 85025

== ENCOUNTER 2022-05-30 18:28 | Emergency (ER) | payer BC, SELFPAY ==
[2022-05-30 19:33] VITALS: BP 212/130; PULSE 88; RESP 22; TEMP 36.8; O2SAT 98; BMI 25.1
--- NOTE | 2022-05-30 19:48 | EXP.UTC ---
Discharge Plan Disposition Patient Disposition: Home, Self-Care Condition: Good Prescriptions Prescriptions: No Action aspirin [Rashard Chewable Aspirin] 81 mg tablet,chewable 81 mg PO ONCE insulin glargine-lixisenatide [Soliqua 100/33] 100 unit-33 mcg/mL insulin pen 0.18 ml SUB-Q QAM metformin 1,000 mg tablet 1 tab PO DAILY 30 Days Qty: 60 atorvastatin 40 mg tablet 1 tab PO DAILY 30 Days Qty: 30 verapamil 240 mg capsule,ext rel. pellets 24 hr 240 mg PO DAILY 30 Days Qty: 30 sertraline 50 mg tablet 1 tab PO DAILY 90 Days Qty: 90 carvedilol 12.5 mg tablet 12.5 mg PO DAILY escitalopram oxalate 10 mg tablet 10 mg PO DAILY losartan 100 mg tablet 100 mg PO DAILY peg 3350-electrolytes [GaviLyte-C] 240-22.72-6.72 -5.84 gram recon soln 240 ml PO Q10M Qty: 4000 0RF Rx Instructions: see mailed instructions clonidine HCl 0.1 MG tablet 0.1 mg PO ONCE PRN (Reason: Blood Pressure - High) Qty: 20 0RF hydroxyzine pamoate 25 MG capsule 25 mg PO Q6H PRN (Reason: Anxiety) Qty: 30 0RF polyethylene glycol 3350 17 GM powder in packet 17 gm PO HS Qty: 30 0RF [id number] huu-[id number]-[id number]-asb-C 1 KIT kit 1 each PO ONCE 1 Days Qty: 1 0RF Rx Instructions: use as directed Referrals Follow up/Referrals: Luis A Camilo MD [Primary Care Provider] - See instructions Activity Restrictions/Add. Instructions Additional Instructions/Restrictions: follow up with pcp watch glucose close for any issues return to ed jose Clinical Impressions Clinical Impression: Acute low back pain with left-sided sciatica Instructions Patient Instructions: DI for Low Back Pain Discharge ED Provider: Michelle ([facility] HPI General Stated complaint: back spasms Mode of Arrival: Ambulatory Source of Information: Patient Limitations: No Limitations Time Seen by Provider: 05/30/22 19:48 Description of Symptoms (Recalled from Triage Doc. by RN): PATIENT C/O BACK SPASMS AND SCIATICA PAIN X 1-2 DAYS. ALSO C/O FLARE UP OF DIVERTICULITIS (BURNING TO LLQ) HEENT Symptoms (Recalled from RN notes): No Resp Symptoms (Recalled from RN notes): No Skin Symptoms (Recalled from RN notes): No MS Symptoms (Recalled from RN notes): Yes Functional Status (Recalled from RN notes): WNL History of Present Illness Provider Complaint: 51 yr old male presents for left lower back pain with pain radiating down left leg for 2 days. pt states he also is on a antibiotic and believes it has his diverticulitis flared up. pt states he has not took his bp med. Related Data Home Medications Medication Instructions Recorded Confirmed aspirin 81 mg chewable tablet 81 mg PO ONCE High blood pressure 12/22/17 02/16/22 (Rashard Chewable Low Dose Aspirin) insulin glargine 100 0.18 ml SUB-Q QAM diabetes 12/22/17 02/16/22 unit-lixisenatide 33 mcg/mL subcutaneous pen (Soliqua 100/33) atorvastatin 40 mg tablet 1 tab PO DAILY Cholesterol 30 days 09/28/18 02/16/22 #30 tabs metformin 1,000 mg tablet 1 tab PO DAILY Diabetes 30 days 09/28/18 02/16/22 #60 tabs sertraline 50 mg tablet 1 tab PO DAILY Depression 90 days 09/28/18 02/16/22 #90 tabs verapamil 240 mg 24 hr 240 mg PO DAILY htn 30 days #30 09/28/18 02/16/22 capsule,extended release caps carvedilol 12.5 mg tablet 12.5 mg PO DAILY Heartburn 10/27/20 02/16/22 escitalopram oxalate 10 mg tablet 10 mg PO DAILY Depression 10/27/20 02/16/22 losartan 100 mg tablet 100 mg PO DAILY Hypertension 10/27/20 02/16/22 Previous Rx's Medication Instructions Recorded clonidine HCl 0.1 mg tablet 0.1 mg PO ONCE PRN Blood Pressure 07/17/19 - High #20 tabs hydroxyzine pamoate 25 mg capsule 25 mg PO Q6H PRN Anxiety #30 caps 07/17/19 [id number] 100 gram-sod sulf 7.5 1 each PO ONCE 1 day #1 ea 02/16/22 [id number]-[id number]-NPv-ascorbate-C oral pwdr pack polyethylene glycol 3350 17 gram 17 gm PO HS #30 packets 02/16/22 oral powder packet peg 3350 240
[2022-05-30 19:58] VITALS: BP 212/130; PULSE 88; RESP 22; TEMP 36.8; O2SAT 98
== END 2022-05-30 20:07 | disposition home or self-care (01) ==
PROVIDERS: Emergency Provider Nurse Practitioner Family; PCP Internal Medicine Adolescent Medicine
DX: M54.42 Lumbago with sciatica, left side (principal)
CPT/HCPCS: 96372; 99212; G0463

== ENCOUNTER 2022-06-08 13:34 | Emergency (ER) | payer BC, SELFPAY ==
[2022-06-08 13:34] VITALS: BP 202/118; PULSE 86; RESP 16; TEMP 37; O2SAT 98; BMI 27.3
--- NOTE | 2022-06-08 14:01 | HMH.EDGENADL ---
Discharge Plan Disposition Patient Disposition: Home, Self-Care Condition: Good Prescriptions Prescriptions: No Action aspirin [Rashard Chewable Aspirin] 81 mg tablet,chewable 81 mg PO ONCE insulin glargine-lixisenatide [Soliqua 100/33] 100 unit-33 mcg/mL insulin pen 0.18 ml SUB-Q QAM metformin 1,000 mg tablet 1 tab PO DAILY 30 Days Qty: 60 atorvastatin 40 mg tablet 1 tab PO DAILY 30 Days Qty: 30 verapamil 240 mg capsule,ext rel. pellets 24 hr 240 mg PO DAILY 30 Days Qty: 30 sertraline 50 mg tablet 1 tab PO DAILY 90 Days Qty: 90 carvedilol 12.5 mg tablet 12.5 mg PO DAILY escitalopram oxalate 10 mg tablet 10 mg PO DAILY losartan 100 mg tablet 100 mg PO DAILY peg 3350-electrolytes [GaviLyte-C] 240-22.72-6.72 -5.84 gram recon soln 240 ml PO Q10M Qty: 4000 0RF Rx Instructions: see mailed instructions clonidine HCl 0.1 MG tablet 0.1 mg PO ONCE PRN (Reason: Blood Pressure - High) Qty: 20 0RF hydroxyzine pamoate 25 MG capsule 25 mg PO Q6H PRN (Reason: Anxiety) Qty: 30 0RF polyethylene glycol 3350 17 GM powder in packet 17 gm PO HS Qty: 30 0RF [id number] [id number]-NVl-asb-C 1 KIT kit 1 each PO ONCE 1 Days Qty: 1 0RF Rx Instructions: use as directed Referrals Follow up/Referrals: Luis A Camilo MD [Primary Care Provider] - See instructions Activity Restrictions/Add. Instructions Additional Instructions/Restrictions: follow up PCP, return for worse Clinical Impressions Clinical Impression: Back pain, Hypertension, uncontrolled, Musculoskeletal back pain Instructions Patient Instructions: Essential Hypertension, DI for Low Back Pain Discharge ED Provider: Dandy Harkins General Adult HPI General Chief complaint: PAIN Stated complaint: muscle spasms Time Seen by Provider: 06/08/22 13:38 Mode of Arrival: Ambulatory Limitations: No Limitations Description of Symptoms (Recalled from ER Triage Doc. by RN): pt advises that he missed a step on Tuesday night and fell down about 4 steps. He has been having muscle spasms ever since then History of Present Illness HPI narrative: 'muscle spasms back pain since fall from steps few days ago at home Onset (ago): day(s) Location: back Radiation: non-radiation Severity: moderate Quality: aching Consistency: constant Relieving factors: none Exacerbating factors: movement Associated symptoms: denies other symptoms Related Data Home Medications Medication Instructions Recorded Confirmed aspirin 81 mg chewable tablet 81 mg PO ONCE High blood pressure 12/22/17 02/16/22 (Rashard Chewable Low Dose Aspirin) insulin glargine 100 0.18 ml SUB-Q QAM diabetes 12/22/17 02/16/22 unit-lixisenatide 33 mcg/mL subcutaneous pen (Soliqua 100/33) atorvastatin 40 mg tablet 1 tab PO DAILY Cholesterol 30 days 09/28/18 02/16/22 #30 tabs metformin 1,000 mg tablet 1 tab PO DAILY Diabetes 30 days 09/28/18 02/16/22 #60 tabs sertraline 50 mg tablet 1 tab PO DAILY Depression 90 days 09/28/18 02/16/22 #90 tabs verapamil 240 mg 24 hr 240 mg PO DAILY htn 30 days #30 09/28/18 02/16/22 capsule,extended release caps carvedilol 12.5 mg tablet 12.5 mg PO DAILY Heartburn 10/27/20 02/16/22 escitalopram oxalate 10 mg tablet 10 mg PO DAILY Depression 10/27/20 02/16/22 losartan 100 mg tablet 100 mg PO DAILY Hypertension 10/27/20 02/16/22 Previous Rx's Medication Instructions Recorded clonidine HCl 0.1 mg tablet 0.1 mg PO ONCE PRN Blood Pressure 07/17/19 - High #20 tabs hydroxyzine pamoate 25 mg capsule 25 mg PO Q6H PRN Anxiety #30 caps 07/17/19 [id number] 100 gram-sod sulf 7.5 1 each PO ONCE 1 day #1 ea 02/16/22 [id number]-YiDb-TIk-ascorbate-C oral pwdr pack polyethylene glycol 3350 17 gram 17 gm PO HS #30 packets 02/16/22 oral powder packet peg 3350 240 gram-electrolytes 240 ml PO Q10M Colonoscopy #4,000 02/25/22 22.72 gram-6.72 g-5.84 g powdr for mL soln (Gavilyte-C) Aller
[2022-06-08 14:14] LABS: Microscopic, Urine URINE MICROSCOPIC (MICROSCOPIC)
[2022-06-08 14:30] VITALS: BP 213/120; PULSE 78; RESP 20; O2SAT 99
[2022-06-08 15:00] VITALS: BP 209/120; PULSE 83; RESP 20; O2SAT 98
[2022-06-08 15:04] VITALS: BP 195/116; PULSE 70; RESP 16; TEMP 37.1; O2SAT 98
--- NOTE | 2022-06-08 15:04 | PC.NURSE ---
Rounded on pt at this time. He advised his muscle cramps were better and had no other needs.B/P still elevated MD notified.
[2022-06-08 15:32] LABS: Appearance,Urine CLEAR (Clear); Bilirubin,Urine Negative (Negative); Blood, Urine Negative (Negative); Color,Urine YELLOW (Yellow); Glucose,Urine (UA) TRACE (Negative); Ketones,Urine Negative (Negative); Leukocyte Esterase,Urine Negative (Negative); Nitrate,Urine Negative (Negative); Protein,Urine Negative (Negative); Specific Gravity, Urine 1.025 (1.005-1.030); Urobilinogen,Urine 0.2 EU/dl (0.2)
[2022-06-08 15:34] LABS: Basophils # 0.1 K/mm3 (0-0.2); Basophils % 1.4 % (0.1-2.0); Eosinophils # 0.2 K/mm3 (0.0-0.4); Eosinophils % 2.7 % (0.1-12.0); Hematocrit 39.7 % (42.0-52.0); Hemoglobin 13.3 g/dL (14.1-18.0); Lymphocytes # 1.5 K/mm3 (0.7-4.5); Lymphocytes % 27.1 % (10-50); Mean Corpuscular HGB Conc 33.5 g/dL (31.8-35.4); Mean Corpuscular Hemoglobin 30.2 pg (27.0-31.2); Mean Corpuscular Volume 90.3 fl (80-94); Mean Platelet Volume 7.8 fl (7.4-10.4); Monocytes # 0.5 K/mm3 (0.1-1.0); Monocytes % 9.1 % (1.7-9.3); Neutrophils # 3.3 K/mm3 (1.8-7.8); Neutrophils % 59.6 % (37.0-80.0); Platelet Count 164 K/mm3 (142-424); Red Cell Distribution Width 13.9 % (11.5-17.5); White Blood Count 5.4 K/mm3 (4.8-10.8)
[2022-06-08 15:47] LABS: Squamous Epithelial Cell,Urine Occasional #/hpf (0-5)
--- NOTE | 2022-06-08 15:47 | PC.NURSE ---
rounded on pt at this time. Updated on POC and medicated per MAR
[2022-06-08 15:55] LABS: Chloride 98 mmol/L (98-107); Sodium 139 mmol/L (136-145)
[2022-06-08 15:58] LABS: Alanine Aminotransferase 38 U/L (12-78); Alkaline Phosphatase 68 U/L (38-126); Aspartate Amino Transferase 34 U/L (17-59); Bilirubin,Total 0.6 mg/dl (0.2-1.3); Blood Urea Nitrogen 15 mg/dl (9-20); Calcium 8.8 mg/dl (8.4-10.2); Carbon Dioxide 32 mmol/L (22.0-30.0); Creatinine Clearance Estimated 164 mL/min (50-200); Estimated Glomerular Filt Rate 141 ml/min (>60); GFR (African American) 171 ML/MIN (>60); Glucose 116 mg/dl (74-100)
[2022-06-08 15:59] LABS: Albumin/Globulin Ratio 1.7 (1.1-1.8); Globulin 2.3 g/dL (1.3-3.2); Magnesium 1.7 mg/dl (1.6-2.3); Total Protein,Serum 6.3 g/dl (6.3-8.2)
--- NOTE | 2022-06-08 16:02 | PC.NURSE ---
1600 CRITICAL K+ 3.0 RECEIVED FROM SLIM IN LAB, PT NAME AND R/V. ED NOTIFIED
--- NOTE | 2022-06-08 16:17 | PC.NURSE ---
ED MD AT BEDSIDE TO DISCUSS DISCHARGE
[2022-06-08 16:21] VITALS: BP 154/101; PULSE 75; RESP 18; TEMP 36.8; O2SAT 98
== END 2022-06-08 16:23 | disposition home or self-care (01) ==
PROVIDERS: Emergency Provider Emergency Medicine; PCP Internal Medicine Adolescent Medicine
DX: M54.50 Low back pain, unspecified (principal); M62.838 Other muscle spasm; I10 Essential (primary) hypertension; Z79.4 Long term (current) use of insulin; Z79.82 Long term (current) use of aspirin; Z79.84 Long term (current) use of oral hypoglycemic drugs; Z79.899 Other long term (current) drug therapy; Z88.8 Allergy status to other drugs, medicaments and biological substances
CPT/HCPCS: 80053; 81001; 83735; 85025; 99283

== ENCOUNTER 2022-06-29 04:36 | Emergency (ER) | payer BC, SELFPAY ==
[2022-06-29 04:37] VITALS: BP 181/101; PULSE 81; RESP 18; TEMP 36.6; O2SAT 99; BMI 27.3
[2022-06-29 04:54] VITALS: BP 186/107; O2SAT 99
[2022-06-29 05:00] VITALS: BP 181/101; PULSE 78; O2SAT 97
--- NOTE | 2022-06-29 05:09 | CT_ITS ---
PROCEDURE INFORMATION: Exam: CT Abdomen And Pelvis Without Contrast Exam date and time: 06/29/2022 5:26 AM Age: 51 years old Clinical indication: Abdominal pain; Generalized; Patient HX: Abd pain, HX diverticulitis TECHNIQUE: Imaging protocol: Computed tomography of the abdomen and pelvis without contrast. Radiation optimization: All CT scans at this facility use at least one of these dose optimization techniques: automated exposure control; mA and/or kV adjustment per patient size (includes targeted exams where dose is matched to clinical indication); or iterative reconstruction. COMPARISON: CT ABDOMEN PELVIS W CON 02/24/2022 12:10 AM FINDINGS: Lungs: Calcified granuloma in the left lung. Liver: Normal. No mass. Gallbladder and bile ducts: Normal. No calcified stones. No ductal dilation. Pancreas: Normal. No ductal dilation. Spleen: Calcified splenic granulomas. Adrenal glands: Normal. No mass. Kidneys and ureters: Normal. No hydronephrosis. Stomach and bowel: Redemonstrated bowel malrotation. No bowel obstruction. Appendix: No evidence of appendicitis. Intraperitoneal space: Unremarkable. No free air. No significant fluid collection. Vasculature: Unremarkable. No abdominal aortic aneurysm. Lymph nodes: Unremarkable. No enlarged lymph nodes. Urinary bladder: Unremarkable as visualized. Reproductive: Unremarkable as visualized. Bones/joints: Unremarkable. No acute fracture. Soft tissues: Unremarkable. IMPRESSION: No acute findings.
[2022-06-29 06:00] VITALS: BP 212/109; PULSE 76; O2SAT 97
[2022-06-29 06:09] LABS: Basophils # 0.1 K/mm3 (0-0.2); Basophils % 0.8 % (0.1-2.0); Eosinophils # 0.2 K/mm3 (0.0-0.4); Eosinophils % 2.7 % (0.1-12.0); Hematocrit 38.5 % (42.0-52.0); Hemoglobin 12.8 g/dL (14.1-18.0); Lymphocytes # 1.6 K/mm3 (0.7-4.5); Lymphocytes % 29.1 % (10-50); Mean Corpuscular HGB Conc 33.2 g/dL (31.8-35.4); Mean Corpuscular Hemoglobin 31.1 pg (27.0-31.2); Mean Corpuscular Volume 93.5 fl (80-94); Monocytes # 0.7 K/mm3 (0.1-1.0); Monocytes % 12.6 % (1.7-9.3); Neutrophils # 3.1 K/mm3 (1.8-7.8); Neutrophils % 54.8 % (37.0-80.0); Platelet Count 154 K/mm3 (142-424); Red Blood Count 4.12 M/mm3 (4.60-6.20); Red Cell Distribution Width 13.9 % (11.5-17.5); White Blood Count 5.6 K/mm3 (4.8-10.8)
[2022-06-29 06:15] LABS: Alanine Aminotransferase 52 U/L (12-78); Albumin Level 4.2 g/dl (3.5-5.0); Albumin/Globulin Ratio 1.8 (1.1-1.8); Alkaline Phosphatase 103 U/L (38-126); Amylase 60 U/L (30-110); Anion Gap 14.3 mEq/L (5-15); Aspartate Amino Transferase 31 U/L (17-59); Bilirubin,Total 0.4 mg/dl (0.2-1.3); Blood Urea Nitrogen 21 mg/dl (9-20); Calcium 9.3 mg/dl (8.4-10.2); Carbon Dioxide 34 mmol/L (22.0-30.0); Chloride 92 mmol/L (98-107); Creatinine Clearance Estimated 141 mL/min (50-200); Estimated Glomerular Filt Rate 118 ml/min (>60); GFR (African American) 143 ML/MIN (>60); Globulin 2.4 g/dL (1.3-3.2); Glucose 165 mg/dl (74-100); Lipase 85 U/L (23-300); Potassium 3.3 mmoL/L (3.5-5.1); Sodium 137 mmol/L (136-145); Total Protein,Serum 6.6 g/dl (6.3-8.2)
--- NOTE | 2022-06-29 06:38 | HMH.EDGENADL ---
Discharge Plan Disposition Patient Disposition: Home, Self-Care Chief Complaint: PAIN Prescriptions Prescriptions: No Action aspirin [Rashard Chewable Aspirin] 81 mg tablet,chewable 81 mg PO ONCE insulin glargine-lixisenatide [Soliqua 100/33] 100 unit-33 mcg/mL insulin pen 0.18 ml SUB-Q QAM metformin 1,000 mg tablet 1 tab PO DAILY 30 Days Qty: 60 atorvastatin 40 mg tablet 1 tab PO DAILY 30 Days Qty: 30 carvedilol 12.5 mg tablet 25 mg PO DAILY escitalopram oxalate 10 mg tablet 10 mg PO BID losartan 100 mg tablet 100 mg PO DAILY potassium chloride 10 mEq tablet,ER particles/crystals 10 meq PO DAILY Label Comments: TAKE ONE TABLET BY MOUTH EVERY DAY Ozempic 0.25 mg or 0.5 mg(2 mg/1.5 mL) pen injector 0.25 mg SQ DAILY Toujeo Max U-300 SoloStar 300 unit/mL (3 mL) insulin pen 1 unit SQ DAILY Referrals Follow up/Referrals: Luis A Camilo MD [Primary Care Provider] - See instructions Clinical Impressions Clinical Impression: Abdominal pain Instructions Patient Instructions: DI for Acute Pain -- Adult Discharge ED Provider: Joshua Almanzar General Adult HPI General Chief complaint: PAIN Stated complaint: diverticulitis flare up Time Seen by Provider: 06/29/22 06:38 Mode of Arrival: Ambulatory Source of Information: Patient, Spouse and Medical Record Limitations: No Limitations Description of Symptoms (Recalled from ER Triage Doc. by RN): pt states he is having a diverticulitis flare up with colon spasms and pain 03/10 pt stated his pain was presant upon waking up at 830 pm and worsened at 230am while he was at work. History of Present Illness HPI narrative: pt with lt flank pain and feels like maybe diverticulitis Onset (ago): day(s) Location: abdomen Severity: moderate Associated symptoms: denies other symptoms Treatments prior to arrival: none Related Data Home Medications Medication Instructions Recorded Confirmed aspirin 81 mg chewable tablet 81 mg PO ONCE High blood pressure 12/22/17 06/29/22 (Rashard Chewable Low Dose Aspirin) insulin glargine 100 0.18 ml SUB-Q QAM diabetes 12/22/17 06/29/22 unit-lixisenatide 33 mcg/mL subcutaneous pen (Soliqua 100/33) atorvastatin 40 mg tablet 1 tab PO DAILY Cholesterol 30 days 09/28/18 06/29/22 #30 tabs metformin 1,000 mg tablet 1 tab PO DAILY Diabetes 30 days 09/28/18 06/29/22 #60 tabs carvedilol 12.5 mg tablet 25 mg PO DAILY Heartburn 10/27/20 06/29/22 escitalopram oxalate 10 mg tablet 10 mg PO BID Depression 10/27/20 06/29/22 losartan 100 mg tablet 100 mg PO DAILY Hypertension 10/27/20 06/29/22 insulin glargine U-300 conc 300 1 unit SQ DAILY Diabetes 06/29/22 06/29/22 unit/mL (3 mL) subcutaneous pen (Toujeo Max U-300 SoloStar) potassium chloride 10 mEq 10 meq PO DAILY Supplement 06/29/22 06/29/22 tablet,extended release(part/cryst) semaglutide 0.25 mg or 0.5 mg (2 0.25 mg SQ DAILY Diabetes 06/29/22 06/29/22 mg/1.5 mL) subcutaneous pen injector (OzSwallow Solutionsic) Allergies Allergy/AdvReac Type Severity Reaction Status Date / Time hydrochlorothiazide Allergy Verified 06/08/22 13:53 PFSH PFS Social History Smoking Status: Never smoker alcohol intake: never substance use type: denies use current occupational status: employed Travel in the last 8 weeks: None household members: spouse housing: house current occupation: factory employee caffeine: No ROS Obtained: Yes All systems reviewed & no additional complaints except as documented Physical Exam General General appearance: alert Head Head exam: normocephalic Eye Eye exam: Present PERRL and EOMI ENT ENT exam: Present mucous membranes moist Neck Neck exam: Present trachea midline Respiratory Respiratory exam: Absent respiratory distress Cardiovascular Cardiovascular exam: Present regular rate Abdominal Exam Abdominal exam:
[2022-06-29 07:45] VITALS: BP 191/111; PULSE 77; RESP 20; TEMP 36.6; O2SAT 98
== END 2022-06-29 07:49 | disposition home or self-care (01) ==
PROVIDERS: Emergency Provider Emergency Medicine; PCP Internal Medicine Adolescent Medicine
DX: K57.92 Diverticulitis of intestine, part unspecified, without perforation or abscess without bleeding (principal); Z79.4 Long term (current) use of insulin; Z79.82 Long term (current) use of aspirin; Z79.84 Long term (current) use of oral hypoglycemic drugs; Z79.899 Other long term (current) drug therapy; Z88.8 Allergy status to other drugs, medicaments and biological substances
CPT/HCPCS: 74176; 80053; 82150; 83690; 85025; 96361; 96374; 96375; 99285; J2405

== ENCOUNTER 2022-07-15 21:45 | Emergency (ER) | payer BC, SELFPAY ==
[2022-07-15 22:53] VITALS: BP 160/106; PULSE 75; RESP 15; TEMP 36.8; O2SAT 98; BMI 26.7
[2022-07-15 23:36] LABS: Microscopic, Urine URINE MICROSCOPIC (MICROSCOPIC)
[2022-07-15 23:37] LABS: Basophils # 0.1 K/mm3 (0-0.2); Basophils % 0.9 % (0.1-2.0); Eosinophils # 0.1 K/mm3 (0.0-0.4); Eosinophils % 1.7 % (0.1-12.0); Hematocrit 42.2 % (42.0-52.0); Hemoglobin 14.2 g/dL (14.1-18.0); Lymphocytes # 1.4 K/mm3 (0.7-4.5); Lymphocytes % 21.3 % (10-50); Mean Corpuscular HGB Conc 33.7 g/dL (31.8-35.4); Mean Corpuscular Hemoglobin 30.8 pg (27.0-31.2); Mean Corpuscular Volume 91.6 fl (80-94); Monocytes # 0.7 K/mm3 (0.1-1.0); Monocytes % 9.7 % (1.7-9.3); Neutrophils # 4.5 K/mm3 (1.8-7.8); Neutrophils % 66.5 % (37.0-80.0); Platelet Count 184 K/mm3 (142-424); White Blood Count 6.7 K/mm3 (4.8-10.8)
[2022-07-15 23:44] LABS: Chloride 101 mmol/L (98-107); Potassium 3.8 mmoL/L (3.5-5.1); Sodium 138 mmol/L (136-145)
[2022-07-15 23:46] LABS: Blood Urea Nitrogen 22 mg/dl (9-20); Creatinine Clearance Estimated 124 mL/min (50-200); Estimated Glomerular Filt Rate 101 ml/min (>60); GFR (African American) 122 ML/MIN (>60)
[2022-07-15 23:47] LABS: Alanine Aminotransferase 28 U/L (12-78); Albumin Level 4.2 g/dl (3.5-5.0); Albumin/Globulin Ratio 1.7 (1.1-1.8); Alkaline Phosphatase 79 U/L (38-126); Anion Gap 10.8 mEq/L (5-15); Appearance,Urine CLEAR (Clear); Aspartate Amino Transferase 24 U/L (17-59); Bilirubin,Total 0.5 mg/dl (0.2-1.3); Blood, Urine Negative (Negative); Calcium 9.4 mg/dl (8.4-10.2); Carbon Dioxide 30 mmol/L (22.0-30.0); Color,Urine YELLOW (Yellow); Globulin 2.5 g/dL (1.3-3.2); Glucose 134 mg/dl (74-100); Glucose,Urine (UA) Negative (Negative); Ketones,Urine TRACE (Negative); Leukocyte Esterase,Urine Negative (Negative); Nitrate,Urine Negative (Negative); PH,Urine 5.5 (5.0-8.5); Protein,Urine TRACE (Negative); Specific Gravity, Urine >= 1.030 (1.005-1.030); Total Protein,Serum 6.7 g/dl (6.3-8.2); Urobilinogen,Urine 0.2 EU/dl (0.2)
[2022-07-15 23:51] LABS: Bilirubin,Urine 1+ (Negative)
[2022-07-15 23:59] LABS: Bacteria,Urine Trace /lpf; Mucus,Urine 1+ /lpf
[2022-07-16 00:07] LABS: Amylase 47 U/L (30-110); Lipase 81 U/L (23-300)
--- NOTE | 2022-07-16 01:25 | HMH.EDABDPAI ---
Discharge Plan Disposition Patient Disposition: Home, Self-Care Chief Complaint: Abdominal Pain Prescriptions Prescriptions: No Action aspirin [Rashard Chewable Aspirin] 81 mg tablet,chewable 81 mg PO ONCE insulin glargine-lixisenatide [Soliqua 100/33] 100 unit-33 mcg/mL insulin pen 0.18 ml SUB-Q QAM metformin 1,000 mg tablet 1 tab PO DAILY 30 Days Qty: 60 atorvastatin 40 mg tablet 1 tab PO DAILY 30 Days Qty: 30 carvedilol 12.5 mg tablet 25 mg PO DAILY escitalopram oxalate 10 mg tablet 10 mg PO BID losartan 100 mg tablet 100 mg PO DAILY potassium chloride 10 mEq tablet,ER particles/crystals 10 meq PO DAILY Label Comments: TAKE ONE TABLET BY MOUTH EVERY DAY Ozempic 0.25 mg or 0.5 mg(2 mg/1.5 mL) pen injector 0.25 mg SQ DAILY Toujeo Max U-300 SoloStar 300 unit/mL (3 mL) insulin pen 1 unit SQ DAILY Referrals Follow up/Referrals: Luis A Camilo MD [Primary Care Provider] - See instructions Clinical Impressions Clinical Impression: Gastritis Instructions Patient Instructions: DI for Acute Abdominal Pain Discharge ED Provider: Joshua Almanzar Abdominal Pain HPI General Chief Complaint: Abdominal Pain Stated Complaint: infection in stomach Time Seen by Provider: 07/16/22 01:25 Mode of Arrival: Family Vehicle Source of Information: Patient and Medical Record Limitations: No Limitations Description of Symptoms (Recalled from ER Triage Doc. by RN): 51 yo male presents with complaints of continued diarrhea and abdominal pain secondary to recent diagnosis of HPylori. Patient states Dr Camilo has been providing ongoing treatment and care for this diagnosis, including prescribing medications, but a malfunction at the [facility] hasn't allowed him to obtain the medications yet. Afebrile upon presentation. States pain is widespread across the entirety of the abdomen and he states feels like burning with occasional pin pricks and rates it an 8/10. 3 episodes of diarrhea today. PMH: hypertension, DM with insulin and oral medications, diverticulitis PSX: colonoscopy with a scar tissue removal. History of Present Illness HPI narrative: has known h pylori and to start meds in am and has acute episode lien CURRIE complaint: abdominal pain Onset (ago): hour(s) Consistency: intermittent Location: epigastric Severity: moderate Associated symptoms: denies other symptoms Related Data Home Medications Medication Instructions Recorded Confirmed aspirin 81 mg chewable tablet 81 mg PO ONCE High blood pressure 12/22/17 06/29/22 (Rashard Chewable Low Dose Aspirin) insulin glargine 100 0.18 ml SUB-Q QAM diabetes 12/22/17 06/29/22 unit-lixisenatide 33 mcg/mL subcutaneous pen (Soliqua 100/33) atorvastatin 40 mg tablet 1 tab PO DAILY Cholesterol 30 days 09/28/18 06/29/22 #30 tabs metformin 1,000 mg tablet 1 tab PO DAILY Diabetes 30 days 09/28/18 06/29/22 #60 tabs carvedilol 12.5 mg tablet 25 mg PO DAILY Heartburn 10/27/20 06/29/22 escitalopram oxalate 10 mg tablet 10 mg PO BID Depression 10/27/20 06/29/22 losartan 100 mg tablet 100 mg PO DAILY Hypertension 10/27/20 06/29/22 insulin glargine U-300 conc 300 1 unit SQ DAILY Diabetes 06/29/22 06/29/22 unit/mL (3 mL) subcutaneous pen (Toujeo Max U-300 SoloStar) potassium chloride 10 mEq 10 meq PO DAILY Supplement 06/29/22 06/29/22 tablet,extended release(part/cryst) semaglutide 0.25 mg or 0.5 mg (2 0.25 mg SQ DAILY Diabetes 06/29/22 06/29/22 mg/1.5 mL) subcutaneous pen injector (Ozempic) Allergies Allergy/AdvReac Type Severity Reaction Status Date / Time hydrochlorothiazide Allergy Verified 06/08/22 13:53 [facility] Disclaimer: The information contained in this section may have been updated after the patient was seen, as this information can be updated by other users. Social History Smoking Status: Never smoker alcohol in
[2022-07-16 01:39] VITALS: BP 125/75; PULSE 75; RESP 18; TEMP 36.8; O2SAT 98
== END 2022-07-16 01:44 | disposition home or self-care (01) ==
PROVIDERS: Emergency Provider Emergency Medicine; PCP Internal Medicine Adolescent Medicine
DX: R10.9 Unspecified abdominal pain (principal); A04.8 Other specified bacterial intestinal infections; R19.7 Diarrhea, unspecified; I10 Essential (primary) hypertension; E11.9 Type 2 diabetes mellitus without complications; K57.90 Diverticulosis of intestine, part unspecified, without perforation or abscess without bleeding; Z79.4 Long term (current) use of insulin; Z79.82 Long term (current) use of aspirin; Z79.84 Long term (current) use of oral hypoglycemic drugs; Z79.899 Other long term (current) drug therapy; Z88.8 Allergy status to other drugs, medicaments and biological substances
CPT/HCPCS: 80053; 81001; 82150; 83690; 85025; 96361; 96374; 96375; 99284; J2405

== ENCOUNTER → 2022-07-26 09:49 | Outpatient (CLI) | payer BC, SELFPAY ==
--- NOTE | 2022-07-26 09:56 | NM_ITS ---
FINAL REPORT CLINICAL HISTORY: CALCULUS OF BILE DUCT FINDINGS: HEPATOBILIARY SCAN WITH CCK INJECTION Following intravenous administration of approximately 7.83 of technetium Choletec, multiple scintigraphic images were obtained. The hepatic parenchymal phase shows homogeneous distribution of the tracer throughout the liver. Prompt appearance of tracer is noted in the intrahepatic and extrahepatic biliary systems. The bile ducts visualized by 5 minutes minutes. The gallbladder and bowel visualize by 10 minutes. Following intravenous injection of 1.7 uCi of CCK, gallbladder ejection fraction is estimated to be 52 %. IMPRESSION: Normal gallbladder ejection fraction of 52 %. Reviewed, Interpreted and Dictated by Carter Sommer III, MD Transcribed by Manan Brink Authenticated and [facility]
== END ==
PROVIDERS: PCP Internal Medicine Adolescent Medicine
DX: K80.50 Calculus of bile duct without cholangitis or cholecystitis without obstruction (principal)
CPT/HCPCS: 78227; A9537; J2805

== ENCOUNTER 2024-10-02 10:43 | Outpatient (CLI) | payer BC, SELFPAY ==
[2024-10-02 21:14] LABS: Coronavirus 19, PCR Not Detected (NotDetected); Influenza A, PCR Not Detected (NotDetected); Influenza B, PCR Not Detected (NotDetected)
== END 2024-10-02 23:59 | disposition home or self-care (01) ==
LOC: LAB.DROPOF 10-03 10:43
PROVIDERS: PCP Student in an Organized Health Care Education/Training Program; Visit Provider Student in an Organized Health Care Education/Training Program
DX: R05.9 Cough, unspecified (principal); R51.9 Headache, unspecified; R68.89 Other general symptoms and signs
CPT/HCPCS: 87636

== ENCOUNTER 2025-06-24 13:03 | Outpatient (CLI) | payer BC, SELFPAY ==
--- NOTE | 2025-06-24 13:06 | CA_ITS ---
FINAL REPORT TECHNIQUE: Doran scale, color and spectral doppler images of the bilateral carotid arteries were obtained. CLINICAL HISTORY: CENTRAL RETINAL VEIN OCCLUSION WITH MACULAR EDEMA,HTN,DM FINDINGS: Peak systolic velocity in the right internal carotid artery is 66 cm/sec. The internal carotid to common carotid artery ratio is 1.3. There is no significant carotid artery stenosis. There is mild plaque formation. The right vertebral artery is normal in direction. Peak systolic velocity in the left internal carotid artery is 70 cm/sec. The internal carotid to common carotid artery ratio is 1.2. There is no significant carotid artery stenosis. There is mild plaque formation. The left vertebral artery is normal in direction. IMPRESSION: Less than and 50 % carotid stenosis bilaterally. Reviewed, Interpreted and Dictated by Shirley Dominguez MD Transcribed by Samantha Mijares Authenticated and [facility]
--- NOTE | 2025-06-24 13:06 | CA_ITS ---
APPROVED REPORT EXAM: Comprehensive 2D, Doppler, and color-flow Echocardiogram Testing And Regulating Chief: Dianne Lynn RVT Ht: 5 ft 8 in Wt: 200lbs BSA: 2.04 BP: 140/85 mmHg Indications: CENTRAL RETINAL VEIN OCCLUSION,HYPERTENSION 2D Dimensions LA Volume 26.70 mL LA Volume Index 13.02 mL/m2 (M/F) 16-34 M-Mode Dimensions RVDd 2.37 cm (0.9-2.6) LA Diam 2.97 cm (1.9-4.0) LVDd 4.46 cm (3.5-5.7) LVDs 2.69 cm (3.5-5.7) IVSd 1.14 cm (0.6-1.1) PWd 0.82 cm (0.6-1.1) EF (Teich) 70.40% FS 39.70% EDV (Teich) 90.50 mL TAPSE 1.57 (<1.7) ESV (Teich) 26.80 mL LV Diastology E Decel Time 257 (160-240 msec) E/A Ratio 0.9 Aortic Valve ADILENE Index 0.96 cm2/m2 AoV Peak Dinesh. 98.0 (50-130 cm/s) AO Peak GR. 3.80 mmHg AO Mean GR. 2.20 (<5 mmHg) AO VTI 19.9 (18-25 cm) ADILENE (VTI) 2.01 (2.5-4.5 cm2) Mitral Valve MV E Max Dinesh. 63.0 (40-130 cm/s) MV A Velocity 71.0 (40-130 cm/s) E/A Ratio 0.89 MV PHT 75.0 ms Pulmonary Valve PV Peak Velocity 85.0 (50-150 cm/s) Left Ventricle The left ventricle is normal size. Left ventricular systolic function is normal. The left ventricular ejection fraction is within the normal range. There is marked increase in left ventricular wall thickness. IVSd is 1.4 cm. There is normal LV segmental wall motion. The left ventricular diastolic function is normal. LVEF is 60% Right Ventricle The right ventricle is mildly dilated. The right ventricular systolic function is normal. Atria Left atrium is mildly dilated. Right atrium is mildly dilated. There is no color Doppler evidence of interatrial shunt. Aortic Valve The aortic valve is mildly thickened. There is no hemodynamically significant aortic valvular stenosis. No aortic regurgitation is present. Mitral Valve The mitral valve is normal in structure. No evidence of mitral valve stenosis. Mild mitral regurgitation is present. Tricuspid Valve The tricuspid valve leaflets are thin and pliable. Trace tricuspid regurgitation. There is insufficient TR jet to estimate RVSP. Pulmonic Valve The pulmonary valve is grossly normal in structure. Trace pulmonic valve regurgitation is present. Great Vessels The aortic root is normal in size. IVC is normal in size and collapses >50% with inspiration. Pericardium There is no pericardial effusion. Other Information Study Quality: Fair Conclusion Normal biventricular systolic function. Marked increase in left ventricular wall thickness. IVSd is 1.4 cm. Mild RV dilation. Mild biatrial dilation. Mild MR. In the setting of marked increase in LV wall thickness, further evaluation with cardiac MRI (HCM protocol) is suggested. Electronically signed by : Nakita Morocho MD 07/01/2025 22:26:09
--- OUTSIDE RECORDS SUMMARY | 2025-06-24 13:15 | XMS_ITS | Data Portability ---
Author Organization ISAIAH SUZAN [facility] Address [address] [place] [address] Care Team Providers Care Instructor Trainer Canine Service Name Role Phone MOON DELANEY Referring Provider [phone] Assessment No assessment recorded. Plan of Treatment Reminders Order Date Submit Date Provider Last Modified By Organization Details Last Modified Time Details Appointments RECHECK 2024 01:00P Mich KIM APRN Not available Not available Not available Lab glucose, fingerst ick, blood 2024 025 [facility], [address], [address] [place] [address], [phone], 04/03/2025 13:39:39 hemoglob in A1C, fingerst ick 2024 025 [facility], [address], [address], [place], [address], 04/03/2025 13:39:39 glucose, fingerst ick, blood [address] [facility] , [address] [place] [address], [phone], 01/11/2025 14:38:02 hemoglob in A1C, fingerst ick [address] [facility] , [address] [place] [address], [phone], 01/11/2025 14:38:02 microalb umin/cre atinine, mass ratio, urine 2024 025 [facility], [address] [place] [address], [phone], 12/14/2024 16:31:14 lipid panel, serum 2024 025 [facility], [address] [place] [address], [phone], 12/14/2024 16:09:25 hepatic function panel, serum 2024 025 [facility], [address] [place] [address], [phone], 12/14/2024 16:09:23 glucose, fingerst ick, blood [address] [facility], [address] [place] [address], [phone], 12/14/2024 14:36:39 hemoglob in A1C, fingerst ick [address] [facility], [address] [place] [address], [phone], 12/14/2024 14:36:39 Referral nutritio nist/ titian referral [id number], [address] [place] [address], [phone], 12/28/2024 17:39:40 Procedures None recorded . Surgeries None recorded . Imaging None recorded . Medication Orders Tresiba FlexTouc h U-200 insulin 200 unit/mL (3 mL) subcutan eous pen 2024 025 [facility], [address] [facility] [address], [place], [place], [id number], 04/03/2025 13:47:40 insulin lispro (U-100) 100 unit/mL subcutan eous pen 2024 025 [facility], [address] [place] [address] [address] [place], [id number], 04/03/2025 13:47:41 Farxiga 10 mg tablet 2024 025 [facility], [address] [place] [address] [address] [place], [id number], 04/03/2025 13:47:42 Tresiba FlexTouc h U-200 insulin 200 unit/mL (3 mL) subcutan eous pen 2024 025 [facility], [address] [place] [address] [address] [place], [id number], 01/11/2025 14:42:02 insulin lispro (U-100) 100 unit/mL subcutan eous pen 2024 025 [facility], [address] [place] [address] [address] [place], [id number], 01/11/2025 14:42:02 Farxiga 10 mg tablet 2024 025 [facility], [address] [place] [address] [address] [place], [id number], 01/11/2025 14:42:02 Tresiba FlexTouc h U-200 insulin 200 unit/mL (3 mL) subcutan eous pen [address] [facility], [address] [place] [address] [address] [place], [phone], 01/11/2025 14:03:20 insulin lispro (U-100) 100 unit/mL subcutan eous pen 2024 025 [facility], [facility] [address], [place], [place], [phone], 12/14/2024 20:16:40 Patient TargetsNo targets recorded. Patient Instructions Encounter Date Encounter Id Patient Instructions Last Modified By Organization Details Last Modified Time 12/14/2024 [id number] medical record request* - Most recent diabetic eye exam PATRICK Not available 12/25/2024 16:22:35 Reason for Referral Rocket Engine Tester/dietitian Refer ral for Uncontrolled type 2 diabetes mellitus Referring Physician: Kay Kim, Endocrinology, Encounter Date: 12/14/2024 Results Created Date Observation Date Name Description Value Unit Range Abnormal Flag Note LastModifiedBy Organization Detail LastModifiedTime 12/15/1912/14/2024 HEPAT IC (LIVE R) PANEL AST 19 U/L 0-40 normal Not Available [facility] [address] [place] [address], [phone], 12/14/2024 16:09:23 12/15/19 25 12/14/2024 HEPAT IC (LIVE R) PANEL ALT 20 U/L 0-41 normal Not Available [facility] [address] [place] [address], [address], 12/14/2024 16:09:23 12/15/19 25 12/14/2024 HEPAT IC (LIVE R) PANEL alkaline phosphatase 126 U/L 40-129 normal Not Available [facility] [address] [place] [address], [phone], 12/14/2024 16:09:23 12/15/19 25 12/14/2024 HEPAT IC (LIVE R) PANEL total protein 7.0 g/dL 6.4-8. 3 normal Not Available [facility] [address] [place] [address], [phone], 12/14/2024 16:09:23 12/15/19 25 12/14/2024 HEPAT IC (LIVE R) PANEL albumin 4.2 g/dL 3.5-5. 2 normal Not Available [facility] [address] [place] [address], [address], 12/14/2024 16:09:23 12/15/1912/14/2024 HEPAT IC (LIVE R) PANEL bilirubin, total 0.7 mg/dL 0.1-1. 2 normal Not Available [facility] [address] [place] [address], [address], 12/14/2024 16:09:23 12/15/1912/14/2024 HEPAT IC (LIVE R) PANEL bilirubin, direct 0.2 mg/dL 0.0-0. 3 normal Not Available [facility] [address] [place] [address], [address], 12/14/2024 16:09:23 12/15/1912/14/2024 HEPAT IC (LIVE R) PANEL bilirubin, indirect 0.5 mg/dL _(carmela c) 0.0-1. 0 normal Not Available [facility] [address] [place] [address], [address], 12/14/2024 16:09:23 12/15/1912/14/2024 LIPID PROFI LE HDL cholesterol 31 mg/dL 40-242 low Not Available [facility] [address] [place] [address], [address], 12/14/2024 16:09:25 12/15/1912/14/2024 LIPID PROFI LE triglyceride s 129 mg/dL 0-149 normal TRIGL YCERI DE RANGE S CARLO L: < 150 BORDE RLINE HIGH: 150 - 199 HIGH: 200 - 499 VERY HIGH: > OR = 500 Not Available [facility] [address] [place] [address], [address], 12/14/2024 16:09:25 12/15/19 25 12/14/2024 LIPID PROFI LE cholesterol 156 mg/dL 0-199 normal NEVILLE STERO L (TOTA L) RANGE S ROSETTA ABLE: < 200 BORDE RLINE : 200 - 239 HIGHE R RISK: > 239 Not Available [facility] [address] [place] [address], [address], 12/14/2024 16:09:25 12/15/1912/14/2024 LIPID PROFI LE LDL cholesterol 99 mg/dL _(carmela c) 0-99 normal LDL NEVILLE STERO L RANGE S OPTIM AL: < 100 NEAR/ ABOVE OPTIM AL: 100 - 129 BORDE RLINE HIGH: 130 - 159 HIGH: 160 - 189 VERY HIGH: > OR = 190 Not Available [facility] [address] [place] [address], [address], 12/14/2024 16:09:25 12/15/1912/14/2024 LIPID PROFI LE chol/HDL ratio (calc) 5.0 mg/dL normal NO CARLO L RANGE ESTAB LISHE D FOR NEVILLE STERO L/HDL RATIO (CALC ULATE D). Not Available [facility] [address] [place] [address], [phone], 12/14/2024 16:09:25 12/15/19 25 12/14/2024 MICRO ALBUM IN/CR EAT RATIO microalbumin , random 20 mg/L 0-19 high Not Available [facility] [address] [place] [address], [address], 12/14/2024 16:31:14 12/15/1912/14/2024 MICRO ALBUM IN/CR EAT RATIO creatinine,u r,random 20 mg/dL normal NO CARLO L RANGE ESTAB LISHE D FOR RANDO M URINE . Not Available [facility] [address] [place] [address], [address], 12/14/2024 16:31:14 12/15/1912/14/2024 MICRO ALBUM IN/CR EAT RATIO MA/creatinin e ratio 100 mcg/m g_cre at 0-29 high Not Available [facility] [address] [place] [address], [phone], 12/14/2024 16:31:14 12/15/19 25 12/14/2024 hemog lobin A1C, finge rstic k hemoglobin A1C % 13.3 % 4.0 - 5.6 Not Available [facility] [address] [place], [address], 12/14/2024 14:10:12 12/15/19 25 12/14/2024 gluco se, finge rstic k, blood glucose, fingerstick 303 mg/dL 70 - 100 Not Available [facility] [place] [place] [address] [place] [address], [phone], 12/14/2024 14:10:03 01/12/20 25 01/11/2025 hemog lobin A1C, finge rstic k hemoglobin A1C % 9.5 % 4.0 - 5.6 Not Available [facility] [address], [phone], 01/10/2025 09:31:17 01/12/20 25 01/11/2025 gluco se, finge rstic k, blood glucose, fingerstick 83 mg/dL 70 - 100 Not Available [facility] [address] [place] [address], [phone], 01/10/2025 09:31:17 04/03/20 25 04/03/2025 hemog lobin A1C, finge rstic k hemoglobin A1C % 6.7 4.0 - 5.6 Not Available [facility] [address], [place], [address], 04/03/2025 13:19:39 04/03/20 25 04/03/2025 gluco se, finge rstic k, blood glucose, fingerstick 172 mg/dL 70 - 100 Not Available [facility] [address], [place], [address], 04/03/2025 13:19:23 Result Notes None recorded. Medical Equipment None Reported. Allergies Allergen ID Allergen Name Allergen Category Reaction Reaction Severity Criticality Documentation Date Start Date Code Code System Note Provider Name and Address Organization Details Recorded Time 658523 hydrochlo rothiazid e medicatio n cough severe high 12/14/20241999 5487 RxNorm KYA KIM, COLOR SPECIALIST [address] [place], [address] [place] [address] 14:03:38 Medications Name Sig Start Date Stop Date Status Note LastModified by Organization Details LastModified Time amlodipine 10 mg tablet Take 1 tablet every day by oral route as directed. 2024 active Not Available Not Available Not Avai lable irbesartan 300 mg tablet Take 1 tablet every day by oral route as directed. 2024 active Not Available Not Available Not Avai lable insulin lispro (U-100) 100 unit/mL subcutaneou s pen Inject 8 units 3 times a day by subcutane ous route before meal(s) for 30 days. 2024 active Not Available Not Available Not Avai lable Farxiga 10 mg tablet Take 1 tablet every day by oral route for 90 days. 2024 active Not Available Not Available Not Avai lable Farxiga 50 mg tab 04/03 completed Not Available Not Available Not Available Tresiba FlexTouch U-200 insulin 200 unit/mL (3 mL) subcutaneou s pen Inject 30 units every day by subcutane ous route in the morning for 90 days. 2024 active Not Available Not Available Not Avai lable Vitals Date Recorded Body weight Systolic And Diastolic Provider Name and Address Organization Details Last Updated DateTime 12/14/2024 90784.26 g 132/88 mm[Hg] KAY KIM, COLOR SPECIALIST [address] [place], [address], [facility] 12/14/2024 14:02:17 Date Recorded Body weight Heart rate Systolic And Diastolic Provider Name and Address Organization Details Last Updated DateTime 01/11/2025 86635.18 g 72 /min 166/110 mm[Hg] [facility] 01/11/2025 14:04:19 Date Recorded Body weight Heart rate Systolic And Diastolic Provider Name and Address Organization Details Last Updated DateTime 04/03/2025 67917.18 g 78 /min 167/104 mm[Hg] [facility] 04/03/2025 13:17:07 Social History None recorded. Functional Status None recorded. Mental Status None recorded. Family History Nothing Reported. Medical History No medical history recorded. Past Encounters Encounter ID Performer Location Encounter Start Date Encounter Closed Date Diagnosis/Indication Diagnosis SNOMED-CT Code Diagnosis ICD10 Code Diagnosis IMO Codes Diagnosis Note [id number] KAY KIM APRN ENDOCRINO [facility] [address] [place] [address] 12/14/2024 13:52:49 12/17/2024 07:54:10 Uncontrolled type 2 diabetes mellitus [id number] E11.65 [id number] A1c from labs on the 2024 was 13.3%Diagn osed 15 years Goal A1c is less than 7%Goal blood glucose: Before meals and upon awakenin-130. 1-2 After meals or at bedtime: < 180. Discussed in detail the consequenc es of uncontroll ed hyperglyce ramiro in the form of microvascu lar complicati ons such as diabetic retinopath y, worsening of diabetic nephropath y, diabetic neuropathy and macrovascu lar complicati ons such as coronary artery disease, peripheral arterial disease and stroke.Edu cated on the importance of dietary carbohydra te consistenc y and restrictio n and not to exceed 45 g of carbohydra te per meal and 15-30 g per snack if needed.Edu cated on signs and symptoms of hypoglycem ia, and what to do if patient is effected by it including: Blood glucose less than 70, drink 6 ounces of soda/juice , glucose and recheck 15 minutes later. If blood glucose still less than 70 repeat until above 70. Once greater than 70 follow-up with irina. Labs from November 23, 2024:BUN 24Creatini ne 0.88GFR 101 Recommenda tions:MACR , lipid panel, and LFTs checked today, or when patient fasting statusStop OzempicCon tinue Farxiga 10mg dailyStart Tresiba 22 units in morning. Increase by 2 units every three days for goal morning blood sugar between 80-130 (patient educated on this medication , how to microcomputer support specialist, and potential side effects).S tart Novolog 6-8 units, 15 minutes before meals three times a day (patient educated on this medication , how to microcomputer support specialist, and potential side effects).C heck blood sugar every morning upon waking, before lunch, and alternate between before dinner and bed.Diabet ic nutrition consult ASAPFollow -up in 4 weeks Eye exam: Up-to-date as of July 2024 with [facility]. Negative for diabetic retinopath y per patient report. Records requested. 10 g monofilame nt test: Will perform at next visitMedic al Nutrition therapy: Consult placed at today's visit Essential hypertension [id number] I10 33242 Goal BP less than 140/90BP in office today 132/88Cont inue current irbesartan , amlodipine daily as prescribed by PCP.Contin ue BP monitoring at home. [id number] KAY KIM APRN ENDOCRINO [facility] [address] [place] [address] 01/11/2025 13:57:52 01/11/2025 14:40:19 Uncontrolled type 2 diabetes mellitus [id number] E11.65 [id number] In office today A1c of 9.5%, down from 13.3%.[place] om point-of-c are blood glucose of 83. Goal A1c is less than 7%Re-discu ssed in detail the consequenc es of uncontroll ed hyperglyce ramiro in the form of microvascu lar complicati ons and macrovascu lar complicati ons.Gerri t was re-educate d on the importance of dietary carbohydra te consistenc y and restrictio n and not to exceed 45 g of carbohydra te per meal and 15-30 g per snack if needed.John terated the signs and symptoms of hypoglycem ia, and what to do if patient is effected by it. Recommenda tions:Cont inue Farxiga 10mg dailyConti nue Tresiba 30 units in morning.Co ntinue Novolog 6-8 units, 15 minutes before meals three times a dayCheck blood sugar every morning upon waking, before lunch, and alternate between before dinner and bed.Follow -up in 3 months Eye exam: Up-to-date as of July 2024 with [facility]. Negative for diabetic retinopath y per patient report. Records have been requested. 10 g monofilame nt test: Performed today and unremarkab leMedical Nutrition therapy: Consult placed prior visit, patient provided with dietitian phone number to call and schedule this.MACR November 2024 was positive at 100 [id number] KAY KIM APRN ENDOCRINO LOGY [facility] [address] [place] [address] 04/03/2025 13:04:53 04/03/2025 13:34:03 Uncontrolled type 2 diabetes mellitus [id number] E11.65 [id number] In office today A1c of 6.7%, down from 9.5%.Rando m point-of-c are blood glucose of 172. Goal A1c is less than 7%Re-discu ssed in detail the consequenc es of uncontroll ed hyperglyce ramiro in the form of microvascu lar complicati ons and macrovascu lar complicati ons.Gerri t was re-educate d on the importance of dietary carbohydra te consistenc y and restrictio n and not to exceed 45 g of carbohydra te per meal and 15-30 g per snack if needed.John terated the signs and symptoms of hypoglycem ia, and what to do if patient is effected by it. Recommenda tions:Cont inue Farxiga 10mg dailyConti nue Tresiba 30 units in morning.Co ntinue Novolog 6-8 units, 15 minutes before meals three times a dayCheck blood sugar every morning upon waking, before lunch, and alternate between before dinner and bed.Follow -up in 3 months, will proceed with 6 months followups if next A1c remains under 7%. Eye exam: Up-to-date as of July 2024 with [facility]. Negative for diabetic retinopath y per patient report. Records have been requested. 10 g monofilame nt test: Up to date.Medic al Nutrition therapy: Consult completed 11/2024MACR November 2024 was positive at 100 Essential hypertension [id number] I10 54177 Goal BP less than 140/90BP in office today 167/104 (patient states he has not had BP medicine in 2 days due to travel, however he will start back on this tomorrow). Continue current irbesartan , amlodipine daily as prescribed by PCP.Contin ue BP monitoring at home. Health Concerns Section Related Observation LastModified by Organization Detai ls LastModified Time None Recorded Concern Status LastModified by Organization Details LastModified Time None Recorded Advance Directives Directive None Recorded Payers Insurance Date Sequence Insurance Name Policy Number Policy Ruth Covered Member ID Ruth Member ID Guarantor Name 04/03/2025 1 [id number] Marcello Gonzalez [id number] Marcello Gonzalez Notes Date Note Type Note Provider Name and Address Organization Details Recorded Time 12/14/2024 text/html Marcello is a 53-year-old male who presents office today with at side after referral for management of uncontrolled diabetes. Patient states he was diagnosed approximately 15 years ago and he was controlled up until 2 years ago at which time A1c started to increase. Patient does state noncompliance with diabetic lifestyle modification and diet. Patient also states he was recently prescribed Ozempic however he cannot take this medication due to changes in vision that it caused. He denies any hypoglycemia. Past medical history significant for hypertension. KAY KIM, JAKOB [address] [place], [address], [facility] 12/14/2024 15:00:19 01/11/2025 text/html ROS as noted in the HPI Marcello is a 54-year-old male who presents office today for follow-up on diabetes management. Patient states he is experiencing much better glucose control since initial visit with our office and starting insulin therapy. KAY KIM, COLOR SPECIALIST [address] [place], [address], [facility] 01/11/2025 14:38:24 04/03/2025 text/html ROS as noted in the HPI Marcello is a 54 year old male who presents to office today for followup on diabetes management. KAY KIM COLOR SPECIALIST [address] [place], [address], [facility] 04/03/2025 13:40:05
--- OUTSIDE RECORDS SUMMARY | 2025-06-24 13:15 | XMS_ITS | Continuity of Care Document ---
Author Organization [facility], ENDOCRINOLOGY [facility] Address [address] [facility] [address] [place] [address] Care Team Providers Care Veterinarian Poultry Name Role Phone MOON DELANEY Referring Provider [phone] Assessment No assessment recorded. Plan of Treatment Reminders Order Date Submit Date Provider Last Modified By Organization Details Last Modified Time Details Appointments RECHECK 2024 01:00P Brooke RAO APRN Not available Not available Not available Lab glucose, fingerst ick, blood [address] Endocrinology [facility], [address], [address], [place], [address], 04/03/2025 13:39:39 hemoglob in A1C, fingerst ick [address] Endocrinology [facility], [address], [address], [place], [address], 04/03/2025 13:39:39 Referral None recorded . Procedures None recorded . Surgeries None recorded . Imaging None recorded . Medication Orders Tresiba FlexTouc h U-200 insulin 200 unit/mL (3 mL) subcutan eous pen 2024 025 [facility], Count includes the [facility] [address] [facility] [address], [place], [phone], 04/03/2025 13:47:40 insulin lispro (U-100) 100 unit/mL subcutan eous pen 2024 025 [facility], [address] [place] [address] [address] [place], [place], [id number], 04/03/2025 13:47:41 Farxiga 10 mg tablet 2024 025 [facility], [address] [place] [address] [address] [facility] [place], [place], [phone], 04/03/2025 13:47:42 Patient TargetsNo targets recorded. Patient InstructionsNo instructions recorded. Reason for Referral None Reported. Results Created Date Observation Date Name Description Value Unit Range Abnormal Flag Note LastModifiedBy Organization Detail LastModifiedTime 04/03/2004/03/2025 hemog lobin A1C, finge rstic k hemoglobin A1C % 6.7 4.0 - 5.[address] [facility] [address], [address], 04/03/2025 13:19:39 04/03/20 25 04/03/2025 gluco se, finge rstic k, blood glucose, fingerstick 172 mg/dL 70 - 100 Not Available [facility] [address], [address], 04/03/2025 13:19:23 Result Notes None recorded. Medical Equipment None Reported. Allergies Allergen ID Allergen Name Allergen Category Reaction Reaction Severity Criticality Documentation Date Start Date Code Code System Note Provider Name and Address Organization Details Recorded Time 102646 hydrochlo rothiazid e medicatio n cough severe high 12/14/20241999 5487 RxNorm GUEVARA RAO, GREASE MAK[employer] [address] [place], [address], [facility] 14:03:38 Medications Name Sig Start Date Stop [...] Avai lable Vitals Date Recorded Body weight Heart rate Systolic And Diastolic Provider Name and Address Organization Details Last Updated DateTime 04/03/2025 59673.18 g 78 /min 167/104 mm[Hg] Frances Armijo [facility] 04/03/2025 13:17:07 Social History None recorded. Functional Status None recorded. Mental Status None recorded. Family History Nothing Reported. Medical History No medical history recorded. Past Encounters Encounter ID Performer Location Encounter Start Date Encounter Closed Date Diagnosis/Indication Diagnosis SNOMED-CT Code Diagnosis ICD10 Code Diagnosis IMO Codes Diagnosis Note [id number] GUEVARA RAO APRN ENDOCRINO [facility] [address] [place] [address] 04/03/2025 13:04:53 04/03/2025 13:34:03 Uncontrolled type 2 diabetes mellitus 337201474 E11.65 [id number] In office today A1c of 6.7%, down from 9.5%.Rando brooke point-of-c are blood glucose of 172. Goal [...] exam: Up-to-date as of July 2024 with [facility]. Negative for diabetic retinopath y per patient report. Records have been requested. 10 g monofilame nt test: Up to date.Medic al Nutrition therapy: Consult completed 11/2024MACR November 2024 was positive at 100 Essential hypertension [id number] I10 16222 Goal BP less than 140/90BP in office [...] by Organization Details LastModified Time None Recorded Payers Encounter Date Sequence Insurance Name Policy Number Policy Ruth Covered Member ID Ruth Member ID Guarantor Name 04/03/2025 1 [id number] [id number] Marcello Murillo Carlos [id number] Marcello Murillo Carlos Notes Date Note Type Note Provider Name and Address Organization Details Recorded Time 04/03/2025 text/html ROS as noted in the HPI Marcello is a 54 year old male who presents to office today for followup on diabetes management. GUEVARA RAO, [employer] [address] [place], [address], [facility] 04/03/2025 13:40:05
== END 2025-06-24 23:59 | disposition home or self-care (01) ==
PROVIDERS: PCP Family Medicine; Visit Provider Physician Assistant
DX: I34.0 Nonrheumatic mitral (valve) insufficiency (principal); I11.9 Hypertensive heart disease without heart failure; I65.23 Occlusion and stenosis of bilateral carotid arteries; H34.8190 Central retinal vein occlusion, unspecified eye, with macular edema
CPT/HCPCS: 93306; 93880

== ENCOUNTER 2025-07-15 14:20 | Observation (INO) | payer BC, SELFPAY ==
--- OUTSIDE RECORDS SUMMARY | 2024-08-02 09:15 | XMS_ITS ---
Author Organization [facility] Address [address] [facility] [facility] [address] [place] [id number] Care Team Providers Care Assistant Hvac Mechanic Name Role Phone Compa Lizarraga Unavailable [phone] Charla Starkey Unavailable [phone] Allergies Allergen (clinical drug ingredient) Drug/Non Drug Allergy documented on EMR Reaction Allergy Type Onset Date Status metformin metFORMIN HCl diarrhea Drug Allergy Act aiden hydrochlorothiazide hydroCHLOROthiazide Unknown Drug Aller gy Active Results Component Value Reference Range Notes Influenza Screen (in house) Reviewed date:08/02/2024 11:49:35 PM Interpretation:neg Performing Lab: Notes/Report: neg results neg CBC Fingerstick (in house) Reviewed date:08/02/2024 11:49:10 PM Interpretation: Performing Lab: Notes/Report: wbc 7.4 3.5 - 10 lym 22.4 15 - 50 mid 5.0 2 - 15 gran 72.6 35 - 80 rbc 5.14 3.5 - 5.5 hgb 15.7 11.5 - 16.5 hct 45.1 35 - 55 mcv 87.8 75 - 100 mch 30.5 25 - 35 mchc 34.8 31 - 38 plat 115 100 - 400 Covid test (in house) Reviewed date:08/02/2024 11:49:19 PM Interpretation:neg Performing Lab: Notes/Report: neg Result: neg REASON FOR VISIT possible bronchitis Medications Medication SIG (Take, Route, Frequency, Duration) Notes Start Date End Date Status Albuterol Sulfate HFA 108 (90 Base) MCG/ACT 1-2 puffs as needed Inhalation every 4 hrs, prn 08/02/2024 Acti ve amLODIPine Besylate 5 MG 1 tablet Orally Once a day; Duration: 90 days 05/14/2024 Active Zithromax Z-Micah 250 MG 2 pills first day then one daily for 4 days orally as directed; Duration: 5 days 08/02/2024 Activ e Irbesartan 300 MG 1 tablet Orally Once a day; Duration: 90 days 05/14/2024 Active Farxiga 10 MG 1 tablet Orally Once a day; Duration: 90 days 05/14/2024 Active Ozempic (0.25 or 0.5 MG/DOSE) 2 MG/3ML 0.5 mg Subcutaneous once weekly 05/14/2024 Active Vital Signs Weight 176.2 lbs 08/02/2024 Blood pressure systolic 140 mm Hg 08/02/19 25 Blood pressure diastolic 100 mm Hg 025 Heart Rate 62 /min 08/02/2024 Height 69 in 08/02/2024 BMI 26.02 kg/m2 08/02/2024 Encounters Encounter Location Date Provider Diagnosis [facility] [address] [id number] 08/02/2024 Charla Starkey Acute URI J06.9 ; Bronchitis J40 and Bilateral acute otitis media H66.93 Assessments Encounter Date Diagnosis (ICD Code) Assessment Notes Treatment Notes Treatment Clinical Notes Section Notes 08/02/2024 Acute URI (ICD-10 - J06.9) Patient will check BP when he gets home. If still elevated, he will stop the OTC cough and congestion medication and call back for a rx cough medication or start coricidin. 08/02/2024 Bronchitis (ICD-10 - J40) 08/02/2024 Bilateral acute otitis media (ICD-10 - H66.93) Zithromax will cover this as well. Plan Of Treatment Medication Medication Name Sig Start Date Stop Date Notes Albuterol Sulfate HFA 108 (9 0 Base) MCG/ACT 1-2 puffs as needed Inhalation every 4 hrs, prn 08/02/2024 Zithromax Z-Micah 250 MG 2 pills first day then one daily for 4 days orally as directed; Duration: 5 days 08/02/2024 Treatment Notes Assessment Notes Acute URI Patient will check B P when he gets home. If still elevated, he will stop the OTC cough and congestion medication and call back for a rx cough medication or start coricidin. Bilateral acute otitis media Zithromax w ill cover this as well. Next Appt Details Follow Up: prn, Reason: Provider Name:Compa Rascon ry, 08/28/2025 09:15:00 AM, [address], [address], [place], [place], [id number], Progress Notes * Marcello TEEDOB: [birth year] (54 yo M)Acc No.[id number]:08/02/2024 Progress Notes Patient: Marcello VERGARA Provider: NICHO Chiang :1970 A ge:53 Y S ex:Male Date:08/02/2024 Address:[address] [place] [address] [place], [id number] Subjective: * Chief Complaints: * 1 . Possible bronchitis. * HPI: E NT/respiratory: 53 year old male presents with c/o cough. c/o nasal congestion. c/o ear pain P t sts that last night when trying to watch tv his ears started ringing and he could hardly hear the tv. c/o Chest Pain. c/o chest congestion. c/o body aches. Pt sts he has been sick for 3 weeks. Pt sts he first thought it was a head cold, but is now in his chest and sinus congestion. Ear pain. Pt sts he has been taking Mucinex for 3 weeks and NyQuil and sts none of it has helped. Pt sts he feels worse in the evenings. * ROS: D ERMATOLOGY: no R anna. n o H abena. G ASTROENTEROLOGY: no N ausea. n o V omiting. U ROLOGY: no D ifficulty urinating. n o B lood in urine. * Medical History: H ypertension, Diabetes Type 2, Hyperlipidemia, Allergic Rhinitis, Diverticulosis. * Surgical History: A ppendectomy 1979, Colonoscopy 2021. * Family History: F ather: alive 79 yrs. M other: alive 75 yrs. S iblings: alive, diagnosed with Diabetes. 1 brother(s) . 2 son(s) . . * Social History: C URRENT TOBACCO USE: No . C affeine: yes, frequency: daily. Alcohol: yes, 1 beer every 2-3 weeks. * Medications: T aking Irbesartan 300 MG Tablet 1 tablet Orally Once a day , Taking amLODIPine Besylate 5 MG Tablet 1 tablet Orally Once a day , Taking Farxiga 10 MG Tablet 1 tablet Orally Once a day , Taking Ozempic (0.25 or 0.5 MG/DOSE) 2 MG/3ML Solution Pen-injector 0.5 mg Subcutaneous once weekly , Medication List reviewed and reconciled with the patient * Allergies: h ydroCHLOROthiazide: Side Effects, metFORMIN HCl: diarrhea - Side Effects. Objective: * Vitals: W t:176.2, Temp:97.9, BP:140/100, HR:62, Nurse:ORLANDO, Ht: 69, BMI:26.02. * Examination: E NT/Respiratory: General Appearance: N AD. E ars: TM's erythematous bilaterally, canals clear. N ose : t urbinates red, congested. S inuses : non tender bilaterally. O ral cavity : erythema without exudate on pharynx, PND present. N swapnil : n o cervical lymphadenopathy. H eart : R RR, normal S1 S2, no murmurs. L ungs:? expiratory wheezes, no rales. Assessment: * Assessment: 1. A cute URI - J06.9 (Primary) 2 . B ronchitis - J40 3 .?Bilateral acute otitis media - H66.93 Plan: * Treatment: Value Reference Range r esults neg * Gisselle Watson 08/02/2024 3:13:4 8 PM > Provider reviewed results while patient in office.Charla Starkey 08/02/2024 11:49:24 PM > ?LAB: CBC Fingerstick (in house) (Collection Date & Time - 08/02/2024)* Value Reference Range w bc 7.4 3.5 - 10 * l ym 22.4 15 - 50 * m id 5.0 2 - 15 * g ran 72.6 35 - 80 * r bc 5.14 3.5 - 5.5 * h gb 15.7 11.5 - 16.5 * h ct 45.1 35 - 55 * m cv 87.8 75 - 100 * m ch 30.5 25 - 35 * m chc 34.8 31 - 38 * p lat 115 100 - 400 * Gisselle Watson 08/02/2024 2:45:5 9 PM > Provider reviewed results while patient in office.JakyCharla Catarina 08/02/2024 11:49:04 PM > ?LAB: Covid test (in house) (Collection Date & Time - 08/02/2024)?neg* Value Reference Range R esult: neg * Gisselle Watson 08/02/2024 3:13:3 0 PM > Provider reviewed results while patient in office.Charla Starkey 08/02/2024 11:49:14 PM > Notes: Patient will check BP when he gets home. If still elevated, he will stop the OTC cough and congestion medication and call back for a rx cough medication or start coricidin.??2.?Bronchitis? Start Zithromax Z-Micah Tablet, 250 MG, 2 pills first day then one daily for 4 days, orally, as directed, 5 days, 1, Refills 0;?Start Albuterol Sulfate HFA Aerosol Solution, 108 (90 Base) MCG/ACT,1-2 puffs as needed, Inhalation, every 4 hrs, prn, 1, Refills 0.??3.?Bilateral acute otitis media? Notes: Zithromax will cover this as well.?? * Procedure Codes: 3 6416 CAPILLARY BLOOD DRAW, 82429 CBC WITH AUTO DIFF, 88754 Flu Test- Nasal Swab, Modifiers: QW , 66351 COVID TEST IN HOUSE, Modifiers: QW * Follow Up: p rn * Images: Billing Information: * Visit Code: 45736 Office Visit, Est Pt., Level 3. * Procedure Codes: 97999 CAPILLARY BLOOD DRAW. 98905 CBC WITH AUTO DIFF. 85789 Flu Test- Nasal Swab. Modifiers: QW 78515 COVID TEST IN HOUSE. Modifiers: QW * Electronic signature of NICHO Glez on 07/15/2025 at 08:12 PM EST Sign off status: Pending * Provider: NICHO Chiang Date: 0 08/02/2024 Generated for Ulices soria/Oniel/eTransmitting on: 09/15/2024 08:12 PM EST History and Physical Notes * HPI (History of Present Illness) Category Sub-Category Detail Notes Category Not es ENT/respiratory ear pain Pt sts that last night when trying to watch tv his ears started ringing and he could hardly hear the tv Pt sts he has been sick for 3 weeks. Pt sts he first thought it was a head cold, but is now in his chest and sinus congestion. Ear pain. Pt sts he has been taking Mucinex for 3 weeks and NyQuil and sts none of it has helped. Pt sts he feels worse in the evenings Chest Pain cough chest congestion nasal congestion body aches Examination Category Sub-Category Detail Notes Category Not es ENT/Respiratory Oral cavity : erythema without exudate on pharynx, PND present Sinuses : non tender bilateral ly Ears: TM's erythematous bi laterally, canals clear Neck : no cervical lymphade nopathy Heart : RRR, normal S1 S2, n o murmurs Lungs: expiratory wheezes, no rales General Appearance: NAD Nose : turbinates red, keisha ested
--- OUTSIDE RECORDS SUMMARY | 2024-08-07 10:00 | XMS_ITS ---
Author Organization Margie Address [facility] [address] [facility] [address] [place] [phone] Care Team Providers Care Director Of Mechanical Engineering Name Role Phone Compa Lizarraga Unavailable [phone] Davi Pinto Unavailable [phone] Allergies Allergen (clinical drug ingredient) Drug/Non Drug Allergy documented on EMR Reaction Allergy Type Onset Date Status metformin metFORMIN HCl diarrhea Drug Allergy Act aiden hydrochlorothiazide hydroCHLOROthiazide Unknown Drug Aller gy Active REASON FOR VISIT is not feeling better Encounters Encounter Location Date Provider Diagnosis [facility] [address] [facility] [address] [facility] [address] [place] [phone] 08/07/2024 Davi Pinto Plan Of Treatment Next Appt Details Provider Name:Compa Rascon ry, 08/28/2025 09:15:00 AM, [address] [facility] [address] [facility], [address], [place], [phone], Progress Notes * NAYMarcello YOUNGERDOB: [birth year] (54 yo M)Acc No.[id number]:08/07/2024 Progress Notes Patient: Marcello VERGARA Provider: Davi Pinto M.D. :1970 A ge:53 Y S ex:Male Date:08/07/2024 Address: [id number] Subjective: * Chief Complaints: * 1 . Is not feeling better. * HPI: E NT/respiratory: Pt presents today with c/o not improving w/ abx. Pt was seen by Charla on 08/02 and diagnosed with a URI as well as otitis media. Pt sts that. * ROS: D ERMATOLOGY: no R anna. [...] yes, 1 beer every 2-3 weeks. * Allergies: h ydroCHLOROthiazide: Side Effects, metFORMIN HCl: diarrhea - Side Effects. Objective: * Vitals: Assessment: Plan: * Treatment: * Images: Billing Information: * Visit Code: * Procedure Codes: * Electronic signature of Davi Pinto MD on 07/15/2025 at 08:12 PM EST Sign off status: Pending * Provider: Davi Pinto M.D. Date: 0 08/07/2024 Generated for Ulices soria/Oniel/Louiseitting on: 09/15/2024 08:12 PM EST
--- OUTSIDE RECORDS SUMMARY | 2024-08-09 10:30 | XMS_ITS ---
[facility] Organization [facility] Address [address] [facility] [address] [facility] [address] [place] [id number] Care Team Providers Care Punch Press Feeder Name Role Phone Compa Lizarraga Unavailable [phone] Charla Starkey Unavailable [phone] Allergies Allergen (clinical drug ingredient) Drug/Non Drug Allergy documented on EMR Reaction Allergy Type Onset Date Status metformin metFORMIN HCl diarrhea Drug Allergy Act aiden hydrochlorothiazide hydroCHLOROthiazide Unknown Drug Aller gy Active Results Component Value Reference Range Notes Influenza Screen (in house) Reviewed date:08/09/2024 03:57:44 PM Interpretation: Performing Lab: Notes/Report: results Neg CBC Fingerstick (in house) Reviewed date:08/09/2024 03:57:44 PM Interpretation: Performing Lab: Notes/Report: wbc 5.4 3.5 - 10 lym 27.7% 15 - 50 mid 7.6% 2 - 15 gran 64.7% 35 - 80 rbc 5.09 3.5 - 5.5 hgb 15.5 11.5 - 16.5 hct 44.8 35 - 55 mcv 87.9 75 - 100 mch 30.4 25 - 35 mchc 34.6 31 - 38 plat 112 100 - 400 Covid test (in house) Reviewed date:08/09/2024 03:57:44 PM Interpretation: Performing Lab: Notes/Report: Result: Neg REASON FOR VISIT f/u sickness, not feeling much better Medications Medication SIG (Take, Route, Frequency, Duration) Notes Start Date End Date Status Ozempic (0.25 or 0.5 MG/DOSE) 2 MG/3ML 0.5 mg Subcutaneous once weekly 05/14/2024 Active Farxiga 10 MG 1 tablet Orally Once a day; Duration: 90 days 05/14/2024 Active amLODIPine Besylate 5 MG 1 tablet Orally Once a day; Duration: 90 days 05/14/2024 Active Cefdinir 300 MG 1 cap(s) Orally Two times a day; Duration: 7 days 08/09/2024 Active Irbesartan 300 MG 1 tablet Orally Once a day; Duration: 90 days 05/14/2024 Active Vital Signs Weight 177 lbs 08/09/2024 Blood pressure systolic 146 mm Hg 08/09/19 25 Blood pressure diastolic 90 mm Hg 025 Heart Rate 60 /min 08/09/2024 Height 69 in 08/09/2024 BMI 26.14 kg/m2 08/09/2024 Encounters Encounter Location Date Provider Diagnosis [facility] [address] [place] [phone] 08/09/2024 Charla Starkey Acute URI J06.9 ; Bronchitis J40 and Bilateral acute otitis media H66.93 Assessments Encounter Date Diagnosis (ICD Code) Assessment Notes Treatment Notes Treatment Clinical Notes Section Notes 08/09/2024 Acute URI (ICD-10 - J06.9) Will switch from Mucinex D to coricidin as his BP is still elevated. He will monitor it at home. 08/09/2024 Bronchitis (ICD-10 - J40) Resolved. 08/09/2024 Bilateral acute otitis media (ICD-10 - H66.93) Plan Of Treatment Medication Medication Name Sig Start Date Stop Date Notes Cefdinir 300 MG 1 cap(s) Orally Two times a day; Duration: 7 days 08/09/2024 Treatment Notes Assessment Notes Acute URI Will switch from Muc inex D to coricidin as his BP is still elevated. He will monitor it at home. Bronchitis Resolved. Next Appt Details Follow Up: prn, Reason: Provider Name:Compa Rascon ry, 08/28/2025 09:15:00 AM, [address], [address], [place], [phone], Progress Notes * Marcello TEEDOB: [birth year] (54 yo M)Acc No.[id number]:08/09/2024 Patient: Marcello VERGARA Provider: NICHO Chiang :1970 A ge:53 Y S ex:Male Date:08/09/2024 Address:[address] [place] [address] [id number] Subjective: * Chief Complaints: * 1 . F/u sickness, not feeling much better. * HPI: E NT/respiratory: 53 year old male presents with c/o cough P t complains of cough that started Tuesday. Associated with nasal congestion, chills and bodyaches. Pt states he did complete abx for recent ear infection but has developed above sx's since then. * ROS: D ERMATOLOGY: no R anna. n o H abena. G ASTROENTEROLOGY: no N ausea. n o V omiting. U ROLOGY: no D ifficulty urinating. n o B lood in urine. * Medical History: H ypertension, Diabetes Type 2, Hyperlipidemia, Allergic Rhinitis, Diverticulosis. * Surgical History: A ppendectomy 1979, Colonoscopy 2021. * Hospitalization/Major Diagno stic Procedure: D enies Past Hospitalization. * Family History: F ather: alive 79 [...] Pen-injector 0.5 mg Subcutaneous once weekly , Discontinued Zithromax Z-Micah 250 MG Tablet 2 pills first day then one daily for 4 days orally as directed , Discontinued Albuterol Sulfate HFA 108 (90 Base) MCG/ACT Aerosol Solution 1-2 puffs as needed Inhalation every 4 hrs, prn , Medication List reviewed and reconciled with the patient * Allergies: h ydroCHLOROthiazide: Side Effects, metFORMIN HCl: diarrhea - Side Effects. Objective: * Vitals: W t:177, Temp:98.1, BP:146/90, HR:60, Nurse:kk, Ht: 69, BMI:26.14. * Examination: E NT/Respiratory: General Appearance: N AD. E ars: TM's erythematous bilaterally. N ose : turbinates red, congested. S inuses : non tender bilaterally. O ral cavity : n o erythema or exudate seen on pharynx. N swapnil : n o cervical lymphadenopathy. H eart : R RR, normal S1 S2, no murmurs. L ungs: c lear to auscultation bilaterally. Assessment: * Assessment: 1. A laura URI - J06.9 (Primary) 2 . B kody - J40 3 .?Bilateral acute otitis media - H66.93 Plan: * Treatment: Value Reference Range r esults Neg * Phuong Wei 08/09/2024 3:34:31 PM > , Provider reviewed results while patient in office. ?LAB: CBC Fingerstick (in house) (Collection Date & Time - 08/09/2024)* Value Reference Range w bc 5.4 3.5 - 10 * l ym 27.7% 15 - 50 * m id 7.6% 2 - 15 * g ran 64.7% 35 - 80 * r bc 5.09 3.5 - 5.5 * h gb 15.5 11.5 - 16.5 * h ct 44.8 35 - 55 * m cv 87.9 75 - 100 * m ch 30.4 25 - 35 * m chc 34.6 31 - 38 * p lat 112 100 - 400 * Crystal Weiira 08/09/2024 3:37:51 PM > , Provider reviewed results while patient in office. ?LAB: Covid test (in house) (Collection Date & Time - 08/09/2024)* Value Reference Range R esult: Neg * Phuong Wei 08/09/2024 3:36:34 PM > , Provider reviewed results while patient in office. Notes: Will switch from Mucinex D to coricidin as his BP is still elevated. He will monitor it at home.??2.?Bronchitis? Notes: Resolved.??3.?Bilateral acute otitis media? Start Cefdinir Capsule, 300 MG, 1 cap(s), Orally, Two times a day, 7 days, 14 Capsule, Refills 0. ? * Procedure Codes: 3 6416 CAPILLARY BLOOD DRAW, 23414 CBC WITH AUTO DIFF, 20698 Flu Test- Nasal Swab, Modifiers: QW , 57085 COVID TEST IN HOUSE, Modifiers: QW * Follow Up: p rn * Images: Billing Information: * Visit Code: 38960 Office Visit, Est Pt., Level 3. * Procedure Codes: 60119 CAPILLARY BLOOD DRAW. 45104 CBC WITH AUTO DIFF. 40765 Flu Test- Nasal Swab. Modifiers: QW 90155 COVID TEST IN HOUSE. Modifiers: QW * Electronic signature of NICHO Glez on 07/15/2025 at 08:11 PM EST Sign off status: Pending * Provider: NICHO Chiang Date: 0 08/09/2024 Generated for Ulices soria/Oniel/eTransmitting on: 1 09/15/2024 08:11 PM EST History and Physical Notes * HPI (History of Present Illness) Category Sub-Category Detail Notes Category Not es ENT/respiratory cough Pt complains of cough that started Tuesday. Associated with nasal congestion, chills and bodyaches. Pt states he did complete abx for recent ear infection but has developed above sx's since then Examination Category Sub-Category Detail Notes Category Not es ENT/Respiratory Oral cavity : no erythema or exudate s een on pharynx Sinuses : non tender bilateral ly Ears: TM's erythematous bi laterally Neck : no cervical lymphade nopathy Heart : RRR, normal S1 S2, n o murmurs Lungs: clear to auscultatio n bilaterally General Appearance: NAD Nose : turbinates red, keisha ested
--- OUTSIDE RECORDS SUMMARY | 2024-08-17 06:15 | XMS_ITS ---
Author Organization [facility] Address [address] [facility] [address] [place] [id number] Care Team Providers Care Child Monitor Name Role Phone Compa Lizarraga Unavailable [phone] Allergies Allergen (clinical drug ingredient) Drug/Non Drug [...] - 6.5 % P-Comprehensive Metabolic Pa ezequiel ([facility]) Reviewed date:08/20/2024 08:47:27 AM Interpretation:gluc 230 Performing Lab: Notes/Report: Test performed by [employer] [email or web address] [facility] , [address], [place] [address] Geoff Read MD, Garage Manager CLIA: [id number] Sodium 141 135-145 mmol/L Potassium 3.9 3.5-5.3 [...] 3.3 Performing Lab: Notes/Report: Test performed by [email or web address] [address] , [address], [place] [address] Geoff Read MD, Garage Manager CLIA: [id number] Cholesterol 170 <200 mg/dL Triglycerides 158 <150 [...] Encounter Location Date Provider Diagnosis [facility] [address] [place] [id number] 08/17/2024 Compa Lizarraga Cough, unspecified t ype [...] Name:Compa Rascon ry, 08/28/2025 09:15:00 AM, [address] [facility] [address] [facility], [address], [place], [phone], Progress Notes * Marcello TEEDOB: [birth year] (54 yo M)Acc No.[id number]:08/17/2024 Progress Notes Patient: Marcello VERGARA Provider: Aishwarya Lizarraga M.D. DOB:1970 A ge:53 Y S ex:Male Date:08/17/2024 Address:[address] [place] [address] VICENTE HICKMAN [id number] Subjective: * Chief Complaints: * 1 . [...] lycohemoglobin 9.1% 5 - 6.5 % * Franchecsa Gallardo 08/17/2024 12:2 6:01 PM > results [...] by Creatinine 105 >59 - mL/min/1.73m2 * JoelLeena 08/20/2024 8:47: 24 AM >See phone encounter [...] Codes: 8 5025 CBC WITH AUTO DIFF, 48627 GLUCOSE TEST, 29583 GLYCATED HEMOGLOBIN TEST, Modifiers: QW * Follow Up: 3 Months * Images: Billing Information: * Visit Code: 05118 Office Visit, Est Pt., Level 4. * Procedure Codes: 21264 CBC WITH AUTO DIFF. 84102 GLUCOSE TEST. 67260 GLYCATED HEMOGLOBIN TEST. Modifiers: QW * Electronic signature of Camila Lizarraag MD on 07/15/2025 at 08:12 PM EST Sign off status: Pending * Provider: Aishwarya Lizarraga M.D. Date: 0 08/17/2024 Generated for Ulices soria/Oniel/eTxiao on: 1 09/15/2024 08:12 PM EST History and Physical [...]
--- OUTSIDE RECORDS SUMMARY | 2024-11-03 16:30 | XMS_ITS ---
Author Organization [facility] PE D EVARISTO Address [address] [place] [address] Care Team Providers Care Support Coordinator Name Role Phone Kenny Camilohen Primary Care Provider Brianna Martin Unavailable [phone] Migration, Provider Unavailable Unavailable Allergies Allergen (clinical drug ingredient) Drug/Non Drug Allergy documented on EMR Reaction Allergy Type Onset Date Status lisinopril Lisinopril cough Drug Allergy Active hydrochlorothiazide hydroCHLOROthiazide hyponatremia D rug Allergy Active REASON FOR VISIT [facility] Conversion Encounter Medications Medication SIG (Take, Route, Frequency, Duration) Notes Start Date End Date Status Diclofenac Sodium 75 MG 1 tab(s) orally 2 times a day x 5 days then twice a day prn; Duration: 15 days 06/04/2022 Active hydrALAZINE HCl 50 MG 1 tab(s) orally twice a day; Duration: 90 days Active Cyclobenzaprine HCl 5 MG 1 tab(s) orally 3 times a day PRN spasm; Duration: 10 day(s) 06/04/2022 Active Atorvastatin Calcium 40 MG 1 tab orally daily; Duration: 90 days Active OZEMPIC 2 MG/1.5 ML (0.25 MG OR 0.5 MG DOSE) 0.5MG SUBCUTANEOUSLY ONCE A WEEK; Duration: 28 DAYS *Please review for potential replacement for e-prescription and drug interaction check* 04/14/2022 Active metFORMIN HCl 1000 MG 1 tab orally twice daily Active Aspirin BUFFERED 81 MG 81 MG ORALLY ONCE A DAY; Duration: 30 DAY(S) *Please review and pick correct strength-formulat ion from [facility] options. If intended option is not shown, discontinue and re-order from Quick Search* Active PEN NEEDLE 8MM 31G QD; Duration: 90 *Please revi ew for potential replacement for e-prescription and drug interaction check* 03/16/2017 Active POTASSIUM CHLORIDE (QVE-ZQOA-MQO M10) 10 MEQ TAKE ONE TABLET BY MOUTH EVERY DAY; Duration: 30 *Please review for potential replacement for e-prescription and drug interaction check* Active Jardiance 25 MG 1 tab(s) orally once a day (in the morning); Duration: 90 days 12/11/2021 Active Toujeo Max SoloStar 300 UNIT/ML INJECT 50 UNITS UNDER THE SKIN ONCE DAILY Active Escitalopram Oxalate 10 MG 1 tab(s) orally once a day; Duration: 90 days Active FREESTYLE HAWA 2 SENSOR KIT 14 DAY 1 INTERDERMAL DAILY; Duration: 14 DAYS *Please review for potential replacement for e-prescription and drug interaction check* 04/19/2022 Active Losartan Potassium 100 MG 1 tab by mouth once daily; Duration: 90 days Active Carvedilol 25 MG 1 tab(s) orally 2 times a day; Duration: 90 days Active Encounters Encounter Location Date Provider Diagnosis [facility] PED [facility] [address] [address] 11/03/2024 Provider Migration Plan Of Treatment Medication Medication Name Sig Start Date Stop Date Notes hydrALAZINE HCl 50 MG 1 tab(s) orally twice a day; Duration: 90 days Atorvastatin Calcium 40 MG 1 tab orally daily; Duration: 90 days POTASSIUM CHLORIDE (DKT-STKM-PVQ M10) 10 MEQ TAKE ONE TABLET BY MOUTH EVERY DAY; Duration: 30 *Please review for potential replacement for e-prescription and drug interaction check* Carvedilol 25 MG 1 tab(s) orally 2 times a day; Duration: 90 days Progress Notes * Marcello TEE LDOB:[birth year] (54 yo M)Acc No.[id number]:11/03/2024 Patient: Marcello VERGARA Provider: Gracia love Migration :1970 A ge:53 Y S ex:Male Date:11/03/2024 Address: [address], [place], [id number] Pcp:Luis A Camilo Subjective: * Chief Complaints: * 1 . [facility] To [facility] Conversion Encounter. * Medical History: * Medications: T aking PEN NEEDLE 8MM 31G QD , Notes to Pharmacist: *Please review for potential replacement for e-prescription and drug interaction check*, Taking Aspirin BUFFERED 81 MG TABLET 81 MG ORALLY ONCE A DAY , Notes to Pharmacist: *Please review and pick correct strength-formulation from [facility] options. If intended option is not shown, discontinue and re-order from Quick Search*, Taking metFORMIN HCl 1000 MG Tablet 1 tab orally twice daily , Taking Jardiance 25 MG Tablet 1 tab(s) orally once a day (in the morning) , Taking OZEMPIC 2 MG/1.5 ML (0.25 MG OR 0.5 MG DOSE) SOLUTION 0.5MG SUBCUTANEOUSLY ONCE A WEEK , Notes to Pharmacist: *Please review for potential replacement for e-prescription and drug interaction check*, Taking Diclofenac Sodium 75 MG Tablet Delayed Release 1 tab(s) orally 2 times a day x 5 days then twice a day prn , Taking Cyclobenzaprine HCl 5 MG Tablet 1 tab(s) orally 3 times a day PRN spasm , Taking FREESTYLE HAWA 2 SENSOR KIT 14 DAY SENSOR 1 INTERDERMAL DAILY , Notes to Pharmacist: *Please review for potential replacement for e-prescription and drug interaction check*, Taking Escitalopram Oxalate 10 MG Tablet 1 tab(s) orally once a day , Taking Toujeo Max SoloStar 300 UNIT/ML Solution Pen-injector INJECT 50 UNITS UNDER THE SKIN ONCE DAILY , Taking Losartan Potassium 100 MG Tablet 1 tab by mouth once daily * Allergies: L isinopril: cough, hydroCHLOROthiazide: hyponatremia. Objective: * Vitals: Assessment: Plan: * Treatment: * * Electronic signature of Mary Grace bailey Migration on 07/15/2025 at 08:10 PM EST Sign off status: Pending * Provider: Gracia love Migration Date: 0 11/03/2024 Generated for Ulices soria/Oniel/Darlin on: 1 09/15/2024 08:10 PM EST
--- OUTSIDE RECORDS SUMMARY | 2024-11-23 06:15 | XMS_ITS ---
Author Organization [facility] Address [address] [facility] [address] [place] [id number] Care Team Providers Care Rag Sorter Name Role Phone Compa Lizarraga Unavailable [phone] Allergies Allergen (clinical drug ingredient) Drug/Non Drug Allergy documented on EMR Reaction Allergy Type Onset Date Status metformin metFORMIN HCl diarrhea Drug Allergy Act aiden hydrochlorothiazide hydroCHLOROthiazide Unknown Drug Aller gy Active Results Component Value Reference Range Notes P-Basic Metabolic Panel (BMP ) Reviewed date:11/27/2024 09:31:12 AM Interpretation:gluc 255, bun 24 Performing Lab: Notes/Report: CLIA: [id number] Geoff Read MD, Product Merchandiser [address] [place] [address] , [place] [address] Test performed by [facility] Sodium 139 135-145 mmol/L Potassium 3.7 3.5-5.3 mmol/L Chloride 99 97-108 mmol/L CO2 25 22-32 mmol/L Glucose 255 65-99 mg/dL BUN 24 6-20 mg/dL Creatinine 0.88 0.70-1.30 mg/dL Calcium 9.1 8.6-10.4 mg/dL eGFR by Creatinine 101 >59 mL/min/1.73m2 P-Hemoglobin A1C Reviewed date:11/27/2024 09:31:12 AM Interpretation:13.3 Performing Lab: Notes/Report: Test performed by [facility] [address] [place] [address] [address], [address], [place] [address] Geoff Read MD, Product Merchandiser CLIA: [id number] Hemoglobin A1C 13.3 <5.7 % The following HbA1c ranges recommended by the [place] Diabetes Association (ADA) may be used as an aid in the diagnosis of diabetes mellitus. HbA1c Suggested Diagnosis >=6.5% Diabetic 5.7% - 6.4% Pre-Diabetic <5.7% Non-Diabetic Estimated Average Glucose Reviewed date:11/27/2024 09:31:12 AM Interpretation:335 Performing Lab: Notes/Report: Test performed by [facility] [address] [place] [address] , [address], [place] [address] Geoff Read MD, Product Merchandiser CLIA: [id number] Estimated Average Glucose (eAG) 335 Estimated Average [...] day; Duration: 90 days Active Vital Signs Weight 167.2 lbs 11/23/2024 Blood pressure systolic 138 mm Hg 11/24/19 25 Blood pressure diastolic 82 mm Hg 025 Heart Rate 101 /min 11/23/2024 Height 69 in 11/23/2024 BMI 24.69 kg/m2 11/23/2024 Encounters Encounter Location Date Provider Diagnosis [facility] [address] [facility] [address] [place] [id number] 11/23/2024 Compa Lizarraga Type 2 diabetes mellitus [address], [place], [phone], Progress Notes * Marcello TEEDOB: [birth year] (54 yo M)Acc No.[id number]:11/23/2024 Progress Notes Patient: Marcello VERGARA Provider: Aishwarya Lizarraga M.D. :1970 A ge:53 Y S ex:Male Date:11/23/2024 Address:[address] [place] [address] [place] [id number] Subjective: * Chief Complaints: * 1 . [...] of insulin - E11.9 2 . B IN 24.0-24.9, adult - Z68.24 Plan: * Treatment: [...] stimated Average Glucose 335 - mg/dL * [facility], IT support 11/24/2024 06:30:18 : This order was created by the Interface. Leena Maldonado 11/27/2024 09:31:04 AM > See phone encounter * Procedure Codes: 3 075F SYST BP GE 130 - 139MM HG, 3079F DIAST BP 80-89 MM HG, 3046F HEMOGLOBIN A1C LEVEL > 9.0% * Follow Up: 3 Months * Images: Billing Information: * Visit Code: 06679 Office Visit, Est Pt., Level 3. * Procedure Codes: 3075F SYST BP GE 130 - 139MM HG. 3079F DIAST BP 80-89 MM HG. 3046F HEMOGLOBIN A1C LEVEL > 9.0%. * Electronic signature of Camila Lizarraga MD on 07/15/2025 at 08:10 PM EST Sign off status: Pending * Provider: Aishwarya Lizarraga M.D. Date: 0 11/23/2024 Generated for Ulices soria/Oniel/Louiseitting on: 1 09/15/2024 08:10 PM EST History and Physical Notes * [...]
--- OUTSIDE RECORDS SUMMARY | 2025-02-21 06:00 | XMS_ITS ---
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) Active confirmed Vital Signs Weight 188.2 lbs 02/21/2025 Blood pressure systolic 160 mm Hg 02/22/20 25 Blood pressure diastolic 90 mm Hg 025 Heart Rate 97 /min 02/21/2025 Height 69 in 02/21/2025 BMI 27.79 kg/m2 02/21/2025 Encounters Encounter Location Date Provider Diagnosis [facility] [address] [facility] [address] [place] [phone] 02/21/2025 Compa Lizarraga Neuropathic pain, le g, [...] [address], [address], [place], [place], [id number], Progress Notes * Marcello TEEDOB: [birth year] (54 yo M)Acc No.[id number]:02/21/2025 Progress Notes Patient: Marcello VERGARA Provider: Aishwarya Lizarraga M.D. :1970 A ge:54 Y S ex:Male Date:02/21/2025 Address:[address] [place], [place] [phone] Subjective: * Chief Complaints: * 1 . [...] * Images: Billing Information: * Visit Code: 55516 Office Visit, Est Pt., Level 3. * Procedure Codes: * Electronic signature of Camila Lizarraga MD on 07/15/2025 at 08:10 PM EST Sign off status: Pending * Provider: Aishwarya Lizarraga M.D. Date: 0 02/21/2025 Generated for Ulices soria/Oniel/Darlin on: 09/15/2024 08:10 PM EST History and Physical [...]
--- OUTSIDE RECORDS SUMMARY | 2025-05-30 08:15 | XMS_ITS ---
Author Organization Manjinder Address 1210 [facility] [address] [place] [id number] Care Team Providers Care Automotive Accessory Installer Name Role Phone Compa Lizarraga Unavailable [phone] Charla Starkey Unavailable [phone] Allergies Allergen (clinical drug ingredient) Drug/Non Drug Allergy documented on EMR Reaction Allergy Type Onset Date Status metformin metFORMIN HCl diarrhea Drug Allergy Act aiden hydrochlorothiazide hydroCHLOROthiazide Unknown Drug Aller gy Active REASON FOR VISIT high BP, f/u BG Retina Medications Medication SIG (Take, Route, Frequency, Duration) Notes Start Date End Date Status Insulin Lispro 100 UNIT/ML as directed Injection Active Tresiba FlexTouch 200 UNIT/ML 30 Units Subcutaneous daily Active Farxiga 10 MG 1 tablet Orally Once a day; Duration: 90 days Active Irbesartan 300 MG 1 tablet Orally Once a day; Duration: 90 days Active amLODIPine Besylate 10 MG 1 tablet Orall y Once a day; Duration: 90 days Active Metoprolol Succinate ER 25 MG 1 tablet Orally Once a day; Duration: 30 days 05/30/2025 Active Vital Signs Weight 201 lbs 05/30/2025 Blood pressure systolic 152 mm Hg 05/30/20 25 Blood pressure diastolic 90 mm Hg 025 Heart Rate 82 /min 05/30/2025 Height 69 in 05/30/2025 BMI 29.68 kg/m2 05/30/2025 Encounters Encounter Location Date Provider Diagnosis Manjinder [address] [facility] [address] [place] [phone] 05/30/2025 Charla Starkey Essential hypertensi on I10 Assessments Encounter Date Diagnosis (ICD Code) Assessment Notes Treatment Notes Treatment Clinical Notes Section Notes 05/30/2025 Essential hypertension (ICD-10 - I10) 05/30/2025 Other Patient saw the retina specialist and they are requesting a sleep study, echo, and carotid U/S due to his exam findings. We do not yet have records and are waiting on them but this will need to be ordered once we have a diagnosis. Plan Of Treatment Medication Medication Name Sig Start Date Stop Date Notes Metoprolol Succinate ER 25 MG 1 tablet O rally Once a day; Duration: 30 days 05/30/2025 Treatment Notes Assessment Notes Other Patient saw the reti na specialist and they are requesting a sleep study, echo, and carotid U/S due to his exam findings. We do not yet have records and are waiting on them but this will need to be ordered once we have a diagnosis. Next Appt Details Follow Up: keep f/u, Reason: Provider Name:Compa Rascon ry, 08/28/2025 09:15:00 AM, [address], [address], [place], [place], [id number], Progress Notes * Marcello TEEDOB: [birth year] (54 yo M)Acc No.[id number]:05/30/2025 Progress Notes Patient: Marcello VERGARA Provider: NICHO Chiang :1970 A ge:54 Y S ex:Male Date:05/30/2025 Address:[address] [place] [address] MIGUELANGEL Christian [id number] Subjective: * Chief Complaints: * 1 . high BP, f/u BG Retina. * HPI: C ardiology: 54 year old male presents with c/o Blood Pressure Elevated P t here for BP because it was high this morning at [facility]. It was 180/120. * ROS: D ERMATOLOGY: no R anna. n o H abena. G ASTROENTEROLOGY: no N ausea. n o V omiting. n o D iarrhea.? U ROLOGY: no D ifficulty urinating. n [...] Side Effects. Objective: * Vitals: W t: 201, Temp: 97.6, BP: 152/90, HR: 82, Nurse: allen, Ht: 69, BMI:29.68. * Examination: G eneral Examination: General Appearance: N AD. H EENT: u nremarkable.?Oral cavity: n o lesions, mucosa moist and WNL, no erythema. N swapnil: s upple, no lymphadenopathy. C hest: n ormal shape and expansion. H eart: R SR. L ungs: c lear to auscultation. A bdomen: b owel sounds present, soft and nontender. ? Assessment: * Assessment: 1. E ssential hypertension - I10 (Primary) Plan: * Treatment: 2. O thers Notes: Patient saw the retina specialist and they are requesting a sleep study, echo, and carotid U/S due to his exam findings. We do not yet have records and are waiting on them but this will need to be ordered once we have a diagnosis. * Follow Up: k eep f/u * Images: Billing Information: * Visit Code: 40974 Office Visit, Est Pt., Level 3. * Procedure Codes: * Electronic signature of NICHO Glez on 07/15/2025 at 08:11 PM EST Sign off status: Pending * Provider: NICHO Chiang Date: Generated for Ulices soria/Oniel/eTransmitting on: 09/15/2024 08:11 PM EST History and Physical Notes * HPI (History of Present Illness) Category Sub-Category Detail Notes Category Not es Cardiology Blood Pressure Elevated Pt here for BP because it was high this morning at [facility]. It was 180/120 Examination Category Sub-Category Detail Notes Category Not es General Examination HEENT: unremarkable Heart: RSR Lungs: clear to auscultatio n Abdomen: bowel sounds present , soft and nontender General Appearance: NAD Neck: supple, no lymphaden opathy Oral cavity: no lesions, mucosa m oist and WNL, no erythema Chest: normal shape and exp ansion
--- OUTSIDE RECORDS SUMMARY | 2025-06-07 09:30 | XMS_ITS ---
Author Organization Manjinder Address 1210 [facility] [address] [place] [phone] Care Team Providers Care Patient Safety Tech Name Role Phone Compa Lizarraga Unavailable [phone] Allergies Allergen (clinical drug ingredient) Drug/Non Drug [...] Orally Once a day Active Vital Signs Weight 200.0 lbs 06/07/2025 Blood pressure systolic 144 mm Hg 06/07/20 25 Blood pressure diastolic 90 mm Hg 025 Heart Rate 70 /min 06/07/2025 Height 69 in 06/07/2025 BMI 29.53 kg/m2 06/07/2025 Encounters Encounter Location Date Provider Diagnosis Manjinder [address] [facility] [address] [place] [phone] 06/07/2025 Compa Lizarraga Essential hypertensi on I10 [...] [address], [address], [place], [place], [phone], Progress Notes * Marcello TEEDOB: [birth year] (54 yo M)Acc No.[id number]:06/07/2025 Progress Notes Patient: Marcello VERGARA Provider: Aishwarya Lizarraga M.D. :1970 A ge:54 Y S ex:Male Date:06/07/2025 Address:[address] [place], [place] [phone] Subjective: * Chief Complaints: * 1 . [...] * Images: Billing Information: * Visit Code: 79322 Office Visit, Est Pt., Level 3. * Procedure Codes: * Electronic signature of Camila Lizarraga MD on 07/15/2025 at 08:11 PM EST Sign off status: Pending * Provider: Aishwarya Lizarraga M.D. Date: 08/07/2024 Generated for Ulices soria/Oniel/Louiseitting on: 09/15/2024 08:11 PM EST History and [...]
--- OUTSIDE RECORDS SUMMARY | 2025-06-28 06:00 | XMS_ITS ---
Author Organization [facility] Address [address] [facility] [address] [facility] [address] [place] [id number] Care Team Providers Care Hand Mold Maker Name Role Phone Compa Lizarraga Unavailable [phone] Allergies Allergen (clinical drug ingredient) Drug/Non Drug Allergy documented on EMR Reaction Allergy Type Onset Date Status metformin metFORMIN HCl diarrhea Drug Allergy Act aiden hydrochlorothiazide hydroCHLOROthiazide Unknown Drug Aller gy Active Results Component Value Reference Range Notes P-Basic Metabolic Panel (BMP ) Reviewed date:07/02/2025 09:16:10 AM Interpretation:Glu 263, BUN 21 Performing Lab: Notes/Report: CLIA: [id number] Steffen Mejia MD, PhD, FCAP, Publications Editor [address] [place] [address] , [address], [place] [address] Test performed by [employer], [facility] Sodium 142 135-145 mmol/L Potassium 3.6 3.5-5.3 mmol/L Chloride 99 97-108 mmol/L CO2 32 20-32 mmol/L Glucose 263 65-99 mg/dL BUN 21 6-20 mg/dL Creatinine 0.91 0.70-1.30 mg/dL Calcium 8.9 8.6-10.4 mg/dL eGFR by Creatinine 99 >59 mL/min/1.73m2 REASON FOR VISIT 3 weeks Medications Medication SIG (Take, Route, Frequency, Duration) Notes Start Date End Date Status Chlorthalidone 25 MG 1/2 tablet in the m orning with food Orally daily; Duration: 90 days 06/07/2025 Active Metoprolol Succinate ER 50 MG 1 tablet Orally Once a day; Duration: 90 days 05/30/2025 Active amLODIPine Besylate 10 MG 1 tablet Orall y Once a day Active Irbesartan 300 MG 1 tablet Orally Once a day Active Farxiga 10 MG 1 tablet Orally Once a day; Duration: 90 days Active Insulin Lispro 100 UNIT/ML as directed Injection Active Tresiba FlexTouch 200 UNIT/ML 30 Units Subcutaneous daily Active Vital Signs Weight 193.4 lbs 06/28/2025 Blood pressure systolic 132 mm Hg 06/28/20 25 Blood pressure diastolic 82 mm Hg 025 Heart Rate 68 /min 06/28/2025 Height 69 in 06/28/2025 BMI 28.56 kg/m2 06/28/2025 Encounters Encounter Location Date Provider Diagnosis [facility] [address] [facility] [address] [facility] [address] [place], [place] [phone] 06/28/2025 Compa Lizarraga Essential hypertensi on I10 Assessments Encounter Date Diagnosis (ICD Code) Assessment Notes Treatment Notes Treatment Clinical Notes Section Notes 06/28/2025 Essential hypertension (ICD-10 - I10) Much better control today Plan Of Treatment Medication Medication Name Sig Start Date Stop Date Notes Chlorthalidone 25 MG 1/2 tablet in the m orning with food Orally daily; Duration: 90 days 06/07/2025 Metoprolol Succinate ER 50 MG 1 tablet O rally Once a day; Duration: 90 days 05/30/2025 amLODIPine Besylate 10 MG 1 tablet Orally Once a day Irbesartan 300 MG 1 tablet Orally Once a day Treatment Notes Assessment Notes Essential hypertension Much better contr ol today Next Appt Details Follow Up: 2 Months fasting, Reason: Provider Name:Compa Rascon ry, 08/28/2025 09:15:00 AM, [address] [facility], [address], [place], [place], [phone], Progress Notes * Marcello TEEDOB: [birth year] (54 yo M)Acc No.[id number]:06/28/2025 Progress Notes Patient: Marcello VERGARA Provider: Aishwarya Lizarraga M.D. :1970 A ge:54 Y S ex:Male Date:06/28/2025 Address:[address] [place] [address] [id number] Subjective: * Chief Complaints: * 1 . 3 weeks. * HPI: C ardiology: 54 year old male presents with c/o Blood Pressure Elevated P t here for 3 week follow up on BP running high.Pt was started on Chlorthalidone 25mg and Metoprolol 50mg. Pt states his BP in the morning has been running 120/130- 70's. Pt states at night 130-140 over 80-90. * Medical History: H ypertension, Diabetes Type [...] Pen-injector 30 Units Subcutaneous daily , Taking Farxiga 10 MG Tablet 1 tablet Orally Once a day , Taking amLODIPine Besylate 10 MG Tablet 1 tablet Orally Once a day , Taking Irbesartan 300 MG Tablet 1 tablet Orally Once a day , Taking Chlorthalidone 25 MG Tablet 1/2 tablet in the morning with food Orally , Taking Metoprolol Succinate ER 50 MG Tablet Extended Release 24 Hour 1 tablet Orally Once a day , Medication List reviewed and reconciled with the patient * Allergies: h ydroCHLOROthiazide: Side Effects, metFORMIN HCl: diarrhea - Side Effects. Objective: * Vitals: W t: 193.4, Temp: 96.5, BP: 132/82, HR: 68, Nurse: SF, Ht: 69, BMI:28.56. * Examination: G eneral Examination: General Appearance: N AD. H eart: R SR. L ungs:?clear to auscultation. Assessment: * Assessment: 1. E ssential hypertension - I10 (Primary) Plan: * Treatment: Value Reference Range B UN 21 H 6-20 - mg/dL * C alcium 8.9 8.6-10.4 - mg/dL * C hloride 99 97-108 - mmol/L * C O2 32 20-32 - mmol/L * C reatinine 0.91 0.70-1.30 - mg/dL * G lucose 263 H 65-99 - mg/dL * P otassium 3.6 3.5-5.3 - mmol/L * S odium 142 135-145 - mmol/L * e GFR by Creatinine 99 >59 - mL/min/1.73m2 * Franchesca Gallardo 07/02/2025 09: 16:01 AM EST > See phone encounter Notes: Much better control today?? * Procedure Codes: 3 075F SYST BP GE 130 - 139MM HG, 3079F DIAST BP 80-89 MM HG * Follow Up: 2 Months fasting * Images: Billing Information: * Visit Code: 04316 Office Visit, Est Pt., Level 3. * Procedure Codes: 3075F SYST BP GE 130 - 139MM HG. 3079F DIAST BP 80-89 MM HG. * Electronic signature of Camila Lizarraga MD on 07/15/2025 at 08:10 PM EST Sign off status: Pending * Provider: Aishwarya Lizarraga M.D. Date: 08/28/2024 Generated for Ulices soria/Oniel/Jordanaransmitting on: 09/15/2024 08:10 PM EST History and Physical Notes * HPI (History of Present Illness) Category Sub-Category Detail Notes Category Not es Cardiology Blood Pressure Elevated Pt here for 3 week follow up on BP running high.Pt was started on Chlorthalidone 25mg and Metoprolol 50mg. Pt states his BP in the morning has been running 120/130- 70's. Pt states at night 130-140 over 80-90 Examination Category Sub-Category Detail Notes Category Not es General Examination Heart: RSR Lungs: clear to auscultatio n General Appearance: NAD
[2025-07-15] VITALS (15 sets, daily range): BP systolic 95–142; BP diastolic 53–86; PULSE 68–81; RESP 10–20; TEMP 36.4–36.6; O2SAT 95–100; BMI 27.4; BMI 27.8
--- NOTE | 2025-07-15 14:30 | ED_ITS ---
<Statement entered by Jeri Quinteros DO - 07/15/25 20:58> I was consulted by the RANDAL, and we discussed the complexity of problems being addressed. I approve the treatment and management plan for this patient's care in the emergency department, thus performing a substantial portion of the medical decision making. Jeri Quinteros DO <Statement entered by Alfonso Wright MD - 07/15/25 18:52> I was consulted by the RANDAL, and we discussed the complexity of the problems being addressed. I approve the treatment and management plan for this patient's care in the emergency department, thus performing a substantive portion of the medical decision making. Alfonso Wright MD Discharge Plan Disposition Patient Disposition: Admitted Condition: Fair Clinical Impressions Clinical Impression: Pre-syncope, Elevated troponin, Episodic lightheadedness, Hypokalemia Discharge ED Provider: Jeri Quinteros General Adult HPI General Chief complaint: Dizziness Stated complaint: dizziness, vision blurry, upset stomach Time Seen by Provider: 07/15/25 14:22 Mode of Arrival: Ambulatory Source of Information: Patient and Spouse Limitations: No Limitations History of Present Illness HPI narrative: 54-year-old male presents to the emergency department with bilateral blurry vision, that occurred 30 minutes to 1 hour prior to arrival he describes it is fuzziness , admits to lightheadedness, patient's spouse said that he has had multiple of these episodes approximately 4 , within the last week. Plaint of near syncope denies any syncopal event, denies any fever chills chest pain shortness of breath, did have some nausea with this is now subsided, no vomiting, does have a slight headache , denies any flashes floaters, denies any curtain over vision, denies any vertiginous symptomatology, denies any abdominal pain, constipation diarrhea urinary symptomatology, patient is a non-smoker denies any alcohol or drug use, other past medical history is consistent with hypertension, TONO/MDD, T2DM, diabetic polyneuropathy, diabetic retinopathy, with status post 1 to 2 weeks of laser surgery of the left eye, follows with ophthalmology/retina specialist for what sounds like antiveg F inhibitors injections every month, hyperlipidemia, patient also recently started GLP-1 agonist on July 03 for his T2DM. Initial triage vitals are unremarkable. Please note that above description of symptoms, in this electronic medical record under categorization of recalled from ER triage doctor by RN are reflective of an initial nursing assessment, however, is not reflective of my full history and physical exam that was personally taken and clarified. Consequentially, this preceding description of symptoms, which may include the patient's categorized chief complaint in the EMR, do not reflect my personal clinical impression, and the ultimate description of history of present illness and patient stated complaints should be deferred to this section of the note. Unless stated otherwise or congruent with this section of the note, additional signs, symptoms, or incongruence should be interpreted as inaccurate with my clinical impression. Onset (ago): hour(s) Related Data Home Medications ?Medication ?Instructions ?Recorded ?Confirmed insulin glargine 100 0.18 ml SUB-Q QAM diabetes 0 12/22/17 10/02/24 unit-lixisenatide 33 mcg/mL subcutaneous pen (Soliqua 100/33) atorvastatin 40 mg tablet 1 tab PO DAILY Cholesterol 3 0 days 09/28/18 10/02/24 #30 tabs carvedilol 12.5 mg tablet 25 mg PO DAILY Heartburn 10/02/24 escitalopram oxalate 10 mg tablet 10 mg PO BID Depress ion 10/27/20 10/02/24 semaglutide 0.25 mg or 0.5 mg (2 0.25 mg SQ DAILY Diab etes 06/29/22 10/02/24 mg/1.5 mL) subcutaneous pen injector (Ozempic) Previous Rx's ?Medication ?Instructions ?Recorded benzonatate 100 mg capsule 100 mg PO BID PRN cough #20 caps 10/02/24 Allergies Allergy/AdvReac Type Severity Reaction Status Date / Time hydrochlorothiazide Allergy Verified 10/02/24 15:04 [facility] Disclaimer: The information contained in this section may have been updated after the patient was seen, as this information can be updated by other users. Social History Smoking Status: Never smoker alcohol intake: never substance use type: denies use current occupational status: employed Travel in the last 8 weeks?: None household members: spouse housing: house current occupation: factory employee caffeine: No Have you lived/traveled outside US in past 30 days?: No Contact w/someone who lives/traveled outside US past 30 days?: No Exposure to someone with infectious disease in past 14 days?: No Do you have a fever (greater than 100.4 F or 38 C)?: No Have you tested positive for COVID-19?: No Exposed to someone with COVID-19 in past 14 days?: No Do you have a sore throat?: No Do you have a cough?: No Do you have any weakness?: No Do you have any diarrhea?: No Are you experiencing any unusual bleeding?: No Do you have any muscle aches/pain?: No Do you have any abdominal pain?: No Are you experiencing loss of taste or smell?: No Other Medical History Have you received the Flu Vaccine for this season: No Have you received the Pneumonia Vaccine: No ROS Obtained: Yes All systems reviewed & no additional complaints except as documented Physical Exam General General appearance: alert and in no apparent distress Head Head exam: atraumatic and normocephalic Eye Eye exam: Present PERRL and EOMI ENT ENT exam: Present mucous membranes moist Neck Neck exam: Present normal inspection Chest Chest inspection: Present normal inspection and symmetric chest wall rise Respiratory Respiratory exam: Present normal lung sounds bilaterally; Absent respiratory distress, wheezes or stridor Cardiovascular Cardiovascular exam: Present regular rate and normal rhythm Abdominal Exam Abdominal exam: Present soft; Absent tenderness, guarding or rebound Extremities Exam Extremities exam: Present normal inspection Neurological Exam Neurological exam: Present alert, oriented X3 and other (5 out of 5 strength in bilateral lower and upper extremities, negative limb drift bilaterally, no rotational, vertical or horizontal nystagmus, negative finger-nose test.) Psychiatric Psychiatric exam: Present normal affect Skin Skin exam: Present warm and dry Medical Decision Making Medical Records Medical records reviewed: Yes I reviewed the patient's medical records. Screening: Per USPSTF and CDC recommendations, given the prevalence of disease in our region, it is our hospital?s policy to screen for HIV and viral Hepatitis for all patients aged 18 and over and those with ongoing risk factors. [place] Inquiry Pt receiving controlled substance: No Vital Signs: 07/15/25 14:23 07/15/25 14:23 07/15/25 14:30 Temperature 98 F 98 F Temperature Source Oral Oral Pulse Rate 78 76 Pulse Rate [Orthostatic Lying] Pulse Rate [Orthostatic Sitting] Pulse Rate [Orthostatic Standing] Pulse Rate [Right] 78 Respiratory Rate 16 16 16 Blood Pressure 134/83 130/86 Blood Pressure [Orthostatic Lying] Blood Pressure [Orthostatic Sitting] Blood Pressure [Orthostatic Standing] Blood Pressure [Right Arm] 134/83 Blood Pressure Mean 96 Blood Pressure Mean [Right Arm] 100 Blood Pressure Source Automatic Cuff Blood Pressure Source [Right Arm] Automatic Cuff Blood Pressure Position Supine Blood Pressure Position [Right Arm] Supine 02 Sat by Pulse Oximetry 97 97 100 Oxygen Delivery Method Room Air Room Air 07/15/25 15:00 07/15/25 16:00 07/15/25 16:30 Temperature Temperature Source Pulse Rate 79 77 71 Pulse Rate [Orthostatic Lying] Pulse Rate [Orthostatic Sitting] Pulse Rate [Orthostatic Standing] Pulse Rate [Right] Respiratory Rate 16 16 13 Blood Pressure 123/78 112/67 106/63 L Blood Pressure [Orthostatic Lying] Blood Pressure [Orthostatic Sitting] Blood Pressure [Orthostatic Standing] Blood Pressure [Right Arm] Blood Pressure Mean 92 77 Blood Pressure Mean [Right Arm] Blood Pressure Source Blood Pressure Source [Right Arm] Blood Pressure Position Blood Pressure Position [Right Arm] 02 Sat by Pulse Oximetry 99 97 97 Oxygen Delivery Method 07/15/25 17:00 07/15/25 17:13 07/15/25 17:13 Temperature Temperature Source Pulse Rate 75 76 Pulse Rate [Orthostatic Lying] Pulse Rate [Orthostatic Sitting] Pulse Rate [Orthostatic Standing] Pulse Rate [Right] Respiratory Rate 15 16 Blood Pressure 110/69 107/69 L 122/80 Blood Pressure [Orthostatic Lying] Blood Pressure [Orthostatic Sitting] Blood Pressure [Orthostatic Standing] Blood Pressure [Right Arm] Blood Pressure Mean 79 80 Blood Pressure Mean [Right Arm] Blood Pressure Source Blood Pressure Source [Right Arm] Blood Pressure Position Blood Pressure Position [Right Arm] 02 Sat by Pulse Oximetry 96 97 Oxygen Delivery Method Room Air 07/15/25 17:14 07/15/25 17:15 07/15/25 17:30 Temperature Temperature Source Pulse Rate 78 68 Pulse Rate [Orthostatic Lying] 73 Pulse Rate [Orthostatic Sitting] 78 Pulse Rate [Orthostatic Standing] 81 Pulse Rate [Right] Respiratory Rate 14 10 L Blood Pressure 95/53 L 120/74 Blood Pressure [Orthostatic Lying] 122/80 Blood Pressure [Orthostatic Sitting] 107/69 L Blood Pressure [Orthostatic Standing] 95/53 L Blood Pressure [Right Arm] Blood Pressure Mean Blood Pressure Mean [Right Arm] Blood Pressure Source Blood Pressure Source [Right Arm] Blood Pressure Position Blood Pressure Position [Right Arm] 02 Sat by Pulse Oximetry 98 97 Oxygen Delivery Method Room Air Room Air 07/15/25 18:00 07/15/25 18:30 Temperature Temperature Source Pulse Rate 68 68 Pulse Rate [Orthostatic Lying] Pulse Rate [Orthostatic Sitting] Pulse Rate [Orthostatic Standing] Pulse Rate [Right] Respiratory Rate 12 12 Blood Pressure 128/83 132/74 Blood Pressure [Orthostatic Lying] Blood Pressure [Orthostatic Sitting] Blood Pressure [Orthostatic Standing] Blood Pressure [Right Arm] Blood Pressure Mean 96 Blood Pressure Mean [Right Arm] Blood Pressure Source Blood Pressure Source [Right Arm] Blood Pressure Position Blood Pressure Position [Right Arm] 02 Sat by Pulse Oximetry 96 95 Oxygen Delivery Method Lab Data Lab results reviewed: Yes I reviewed the patient's lab results. Lab Results 07/15/25 14:46: WBC 7.6, RBC 5.18, Hgb 15.8, Hct 44.9, MCV 86.7, MCH 30.5, MCHC 35.2, RDW 11.8, Plt Count 169, MPV 10.2, Neut % (Auto) 68.2, Lymph % (Auto) 18.9, [place] % (Auto) 10.9 H, Eos % (Auto) 1.1, Baso % (Auto) 0.5, Neut # (Auto) 5.2, Lymph # (Auto) 1.4, [place] # (Auto) 0.8, Eos # (Auto) 0.1, Baso # (Auto) 0.0, PT 10.8, INR 0.97, Sodium 140, Potassium 2.8 L*, Chloride 96 L, Carbon Dioxide 36 H, Anion Gap 10.8, BUN 32 H, Creatinine 1.20, Estimated Creat Clear 82, Estimated GFR 63, Est GFR ( Amer) 76, Glucose 148 H, Calcium 9.4, Magnesium 2.3, Total Bilirubin 0.8, AST 26, ALT 22, Alkaline Phosphatase 121, T roponin I 0.05 H, NT-Pro-B Natriuret Pep 45.2, Total Protein 8.0, Albumin 4.6, G lobulin 3.4 H, Albumin/Globulin Ratio 1.4, Lipase 250 07/15/25 17:45: Troponin I 0.05 H 07/15/25 14:46 07/15/25 14:46 Orders (Tests/Meds): ED MEDICATIONS Generic Name Dose Route Start Last Admin Trade Name Freq PRN Reason Stop Dose Admin Acetaminophen 650 mg 07/15/25 18:36 Acetaminophen 325mg Tab PO 08/14/25 18:35 Q4HP PRN Fever or Mild Pain (1-3) Hydrocodone Bitart/Acetaminophen 1 tab 07/15/25 18:36 Hydrocodone/Apap 5/325 Mg Tablet PO 08/14/25 18:35 Q4HP PRN Mild to Moderate Pain (1-6) Heparin Sodium (Porcine) 5,000 unit 07/15/25 21:00 Heparin Sodium 5,000 Unit/Ml Vial SUBCUT 08/14/25 20:59 TID LUISA Nicotine 21 mg 07/15/25 18:36 Nicotine 21mg/24hr Patch TD 08/14/25 18:35 DAILYP PRN Nicotine Cravings Pantoprazole Sodium 40 mg 07/15/25 21:00 Pantoprazole 40mg Tablet PO 08/14/25 20:59 HS LUISA Discontinued Medications Generic Name Dose Route Start Last Admin Trade Name Freq PRN Reason Stop Dose Admin Diphenhydramine HCl 25 mg 07/15/25 14:54 07/15/25 15:44 Diphenhydramine 50mg/Ml Vial IV 07/15/25 14:55 25 mg ONCE ONE Administration Iopamidol 85 ml 07/15/25 15:29 07/15/25 15:29 Iopamidol-370 (76%);100ml Bottle IV 07/15/25 15:30 85 ml ONCE ONE Administration Potassium Chloride 80 meq 07/15/25 15:26 07/15/25 15:44 Potassium Chloride 20meq Tab PO 07/15/25 15:27 80 meq ONCE ONE Administration Prochlorperazine Edisylate 10 mg 07/15/25 14:54 07/15/25 15:44 Prochlorperazine 10mg/2ml Vial IV 07/15/25 14:55 10 mg ONCE ONE Administration Sodium Chloride 50 ml 07/15/25 15:29 07/15/25 15:29 0.9 % Sodium Chloride 50 Ml Vial IV 07/15/25 15:30 50 ml ONCE ONE Administration Sodium Chloride 10 ml 07/15/25 15:29 07/15/25 15:29 Sodium Chloride 0.9% 10ml Syr (Rad Only) IV 07/15/25 15:30 10 ml ONCE ONE Administration ORDERS Category Date Time Status CT angio head Stat Cat Scan 07/15/25 14:[address] angio neck Stat Cat Scan 07/15/25 14:[address] head/brain wo con Stat Cat Scan 07/15/25 14:54 Completed Cardiology Consult [Consult to Cardiology] [CONS] Cons 07/15/25 18:36 Active Routine Complete Blood Count Auto Diff AMLAB Lab 07/16/25 06:00 Ordered Complete Blood Count Auto Diff Stat Lab 07/15/25 14:46 Completed Comprehensive Metabolic Panel AMLAB Lab 07/16/25 06:00 Ordered Comprehensive Metabolic Panel Stat Lab 07/15/25 14:46 Completed HIV Combo Stat Lab 07/15/25 14:46 Received Hepatitis C Ab Qual. W/ RFX Stat Lab 07/15/25 14:46 Received Lipase Stat Lab 07/15/25 14:46 Completed Magnesium AMLAB Lab 07/16/25 06:00 Ordered Magnesium Stat Lab 07/15/25 14:46 Completed NT Pro Brain Natriuretic Pep. Stat Lab 07/15/25 14:46 Completed PT INR [Prothrombin Time INR] Stat Lab 07/15/25 14:46 Completed Troponin I Q3H Lab 07/15/25 17:45 Completed Troponin I Q3H Lab 07/15/25 20:45 Ordered Troponin I Stat Lab 07/15/25 14:46 Completed Medical Decision Narrative: 54-year-old male presents to the emergency department with bilateral blurry vision and lightheadedness and headache, this been ongoing for several days, differential diagnose include but not limited cardiac arrhythmia, electrolyte disturbance, vasovagal syncope, situational syncope, cardiogenic syncope, TIA/CVA ,peripheral vertigo, postural syncope orthostatic hypotension, hyperglycemia, migraine with aura, migraine without aura, ophthalmologic migraine, hypoglycemia among others. I discussed this patient's case with the attending physician Dr. Quinteros Will obtain basic laboratory studies, EKG, orthostatics, CTAs of the head and neck as well as CT Noncon, lipase level magnesium level proBNP coags troponin, will give 25 mg IV Benadryl and 10 mg IV Compazine for migrainous type cocktail, will hold off on analgesia (NSAID) until CT head Noncon is resulted to rule out any intracranial hemorrhage. CBC unremarkable Mild hypokalemia at 2.8, noted on CMP, will replace with 80 mill equivalents p.o. potassium, CMP also notable for elevated BUN at 32 otherwise unremarkable CMP. Initial troponin is elevated at 0.05, proBNP within normal limits. I discussed this patient's case with the hand sample maker on-call Dr. Subramanian at approximately 3:43 PM, he reviewed the patient's EKG, as well as previous EKG that was performed in 2019, I discussed recent echocardiogram results with him that was performed in June 2025, he recommends admission for further cardiac workup and NSTEMI. Coags within normal limits I reviewed the patient's CTA head and neck with and without contrast along the corresponding radiologic report, no significant stenosis or dissection, no significant stenosis or large vessel occlusion. Review the patient's CT head without contrast on the corresponding radiologic report no acute intracranial abnormality. Orthostatics positive Reexamination of the patient at approximately 5:40 PM, headache is improved, blurred vision is somewhat improved, still has some lightheaded symptomatology Attempted calling hospitalist team at approximately 5:43 PM no answer we will try again. I called hospitalist physician at approximately 6 PM, at this time he is performing critical care direct patient care and will call back. I discussed this patient's case with the attending hospitalist Dr. Pettit at approximately 633 PM, he is in agreement with current admission plan/treatment plan for NSTEMI and presyncope heart score of 4. I discussed need for admission with patient family bedside patient and family are in agreement with the current treatment plan/admission plan Repeat troponin is still elevated at 0.05. Critical Care Critical Care Time Critical Care Time: No
--- NOTE | 2025-07-15 14:41 | PC.NURSE ---
FSBS 147
--- NOTE | 2025-07-15 14:53 | CT_ITS ---
PROCEDURE INFORMATION: Exam: CTA Neck With Contrast Exam date and time: 07/15/2025 3:28 PM Age: 54 years old Clinical indication: Pain; Headache; Additional info: Headache, bl blurry va, lightheadedness TECHNIQUE: Imaging protocol: Computed tomographic angiography of the neck with contrast. Exam focused on the cervical segments of the vasculature. 3D rendering (Not supervised by radiologist): MIP and/or 3D reconstructed images were created by the technologist. Radiation optimization: All CT scans at this facility use at least one of these dose optimization techniques: automated exposure control; mA and/or kV adjustment per patient size (includes targeted exams where dose is matched to clinical indication); or iterative reconstruction. Contrast material: ISO 370; Contrast volume: 80 ml; Contrast route: INTRAVENOUS (IV); COMPARISON: MR - [facility] MR angio neck wo con 08/07/2018 1:05 PM FINDINGS: Limitations: Limited by artifact arising from metallic dental hardware/dental amalgam. Right common carotid artery: Mild atheromatous irregularity involving the right common carotid artery without significant stenosis. Right internal carotid artery: No stenosis of the extracranial segment. No dissection or occlusion. Right external carotid artery: No occlusion or stenosis of the origin. Left common carotid artery: Atheromatous irregularity involving the left common carotid artery. Mild stenosis measures less than 50%. Left internal carotid artery: Calcification of the proximal left ICA without significant stenosis. Left external carotid artery: No occlusion or stenosis of the origin. Right vertebral artery: No stenosis. No dissection or occlusion. Left vertebral artery: No stenosis. No dissection or occlusion. Soft tissues: Normal. No significant soft tissue swelling. Bones/joints: Degenerative change involving the spine. IMPRESSION: No significant stenosis or dissection. REFERENCES: NASCET CRITERIA. The degree of stenosis in the cervical segment of the internal carotid artery is based on NASCET criteria. Normal is no stenosis. Mild is less than 50% stenosis. Moderate is 50-69% stenosis. Severe is 70% to 99% stenosis. Total occlusion is no detectable patent lumen.
--- NOTE | 2025-07-15 14:53 | CT_ITS ---
PROCEDURE INFORMATION: Exam: CTA Head With Contrast, Arteriography Exam date and time: 07/15/2025 3:28 PM Age: 54 years old Clinical indication: Pain; Headache; Additional info: Headache, bl blurry va, lightheadedness TECHNIQUE: Imaging protocol: Computed tomographic angiography of the head with contrast. Exam focused on the arteries. 3D rendering (Not supervised by radiologist): MIP and/or 3D reconstructed images were created by the technologist. Radiation optimization: All CT scans at this facility use at least one of these dose optimization techniques: automated exposure control; mA and/or kV adjustment per patient size (includes targeted exams where dose is matched to clinical indication); or iterative reconstruction. Contrast material: ISO 370; Contrast volume: 80 ml; Contrast route: INTRAVENOUS (IV); COMPARISON: MR - [facility] MR head/brain wo con 08/07/2018 1:05 PM FINDINGS: ANTERIOR CIRCULATION: Right internal carotid artery: Intracranial segment is patent with no significant stenosis. No aneurysm. Right middle cerebral artery: No occlusion or significant stenosis. No aneurysm. Right anterior cerebral artery: No occlusion or significant stenosis. No aneurysm. Left internal carotid artery: Intracranial segment is patent with no significant stenosis. No aneurysm. Left middle cerebral artery: No occlusion or significant stenosis. No aneurysm. Left anterior cerebral artery: No occlusion or significant stenosis. No aneurysm. POSTERIOR CIRCULATION: Right vertebral artery: No occlusion or significant stenosis. No aneurysm. Left vertebral artery: No occlusion or significant stenosis. No aneurysm. Basilar artery: No occlusion or significant stenosis. No aneurysm. Right posterior cerebral artery: No occlusion or significant stenosis. No aneurysm. Left posterior cerebral artery: No occlusion or significant stenosis. No aneurysm. IMPRESSION: No significant stenosis or large vessel occlusion.
--- NOTE | 2025-07-15 14:54 | CT_ITS ---
PROCEDURE INFORMATION: Exam: CT Head Without Contrast Exam date and time: 07/15/2025 3:28 PM Age: 54 years old Clinical indication: Pain; Headache; Additional info: Headache, bl blurry va, lightheadedness TECHNIQUE: Imaging protocol: Computed tomography of the head without contrast. Radiation optimization: All CT scans at this facility use at least one of these dose optimization techniques: automated exposure control; mA and/or kV adjustment per patient size (includes targeted exams where dose is matched to clinical indication); or iterative reconstruction. COMPARISON: MR - [facility] MR head/brain wo con 08/07/2018 1:05 PM FINDINGS: Brain: Mild volume loss. No acute intracranial hemorrhage, midline shift or significant intracranial. Cerebral ventricles: No obstructive hydrocephalus. Paranasal sinuses: Minor paranasal sinus disease. Mastoid air cells: Visualized mastoid air cells are well aerated. Bones: Unremarkable. No acute fracture. Soft tissues: Unremarkable. IMPRESSION: No acute intracranial abnormality.
[2025-07-15 14:57] LABS: Hematocrit 44.9 % (42.0-52.0); Hemoglobin 15.8 g/dL (14.1-18.0); Immature Granulocytes % 0.4 %; Mean Corpuscular HGB Conc 35.2 g/dL (31.8-35.4); Mean Corpuscular Hemoglobin 30.5 pg (27.0-31.2); Mean Corpuscular Volume 86.7 fl (80-94); Nucleated Red Blood Cells % 0 %; Platelet Count 169 K/mm3 (142-424); Red Blood Count 5.18 M/mm3 (4.60-6.20); Red Cell Distribution Width-SD 37.4 fL; White Blood Count 7.6 K/mm3 (4.8-10.8)
[2025-07-15 15:19] LABS: Alanine Aminotransferase 22 U/L (12-78); Albumin Level 4.6 g/dl (3.5-5.0); Albumin/Globulin Ratio 1.4 (1.1-1.8); Alkaline Phosphatase 121 U/L (38-126); Anion Gap 10.8 mEq/L (5-15); Aspartate Amino Transferase 26 U/L (17-59); Bilirubin,Total 0.8 mg/dl (0.2-1.3); Blood Urea Nitrogen 32 mg/dl (9-20); Calcium 9.4 mg/dl (8.4-10.2); Carbon Dioxide 36 mmol/L (22.0-30.0); Chloride 96 mmol/L (98-107); Creatinine Clearance Estimated 82 mL/min (50-200); Creatinine,Serum 1.20 mg/dl (0.66-1.25); Estimated Glomerular Filt Rate 63 ml/min (>60); GFR (African American) 76 ML/MIN (>60); Globulin 3.4 g/dL (1.3-3.2); Glucose 148 mg/dl (74-100); Lipase 250 U/L (23-300); Magnesium 2.3 mg/dl (1.6-2.3); Sodium 140 mmol/L (136-145); Total Protein,Serum 8.0 g/dl (6.3-8.2)
[2025-07-15 15:22] LABS: Potassium 2.8 mmoL/L (3.5-5.1)
--- NOTE | 2025-07-15 15:23 | ECG_ITS ---
APPROVED REPORT Exam: Resting ECG HR:73 bpm ECG Measurements Heart Rate 73 AXES OR 183 P 59 QRSd 92 QRS 103 QT 392 T -6 QTc 418 Conclusion Normal sinus rhythm without acute ST or T wave changes concerning for ischemia Electronically signed by : Jeri Quinteros, 07/16/2025 23:46:49
[2025-07-15] MEDS: 0.9 % SODIUM CHLORIDE 50 ML VIAL IV (15:29)
[2025-07-15] MEDS: SODIUM CHLORIDE 0.9% 10ML SYR (RAD ONLY) 10 ML IV (15:29)
[2025-07-15] MEDS: IOPAMIDOL-370 (76%);100ML BOTTLE 85 ML IV (15:29)
[2025-07-15 15:31] LABS: NT Pro Brain Natriuretic Pep. 45.2 pg/mL (0-125); Troponin I 0.05 ng/ml (0.00-0.034)
[2025-07-15 15:40] LABS: INR 0.97 (0.9-1.1); Prothrombin Time 10.8 seconds (10.1-12.5)
[2025-07-15] MEDS: POTASSIUM CHLORIDE 20MEQ TAB 80 MEQ PO (15:44)
[2025-07-15] MEDS: PROCHLORPERAZINE 10MG/2ML VIAL 10 MG IV (15:44)
[2025-07-15 18:32] LABS: Troponin I 0.05 ng/ml (0.00-0.034)
--- NOTE | 2025-07-15 18:37 | PC.NURSE ---
[facility] TESTER NOTIFIED OF ADMISSION
--- NOTE | 2025-07-15 19:17 | PC.NURSE ---
Report [id number] from Alexandra RN PT awake alert and oriented Skin pink warm and dry Resp full and easy Speech clear and appropriate. Pt aware of plans for admission. Awaiting bed assignment
--- NOTE | 2025-07-15 19:32 | PC.NURSE ---
Report called to Shantanu BERTRAND Pt aware of plans for admission. Pt transported to floor via wheelchair by [facility]
--- OUTSIDE RECORDS SUMMARY | 2025-07-15 20:10 | XMS_ITS | Continuity of Care Document ---
Author Organization [facility], ENDOCRINOLOGY [facility] Address [address] [place] [address] Care Team Providers Care Palm And Back Forger Name Role Phone MOON DELANEY Referring Provider [phone] Assessment No assessment recorded. Plan of Treatment Reminders Order Date Submit Date Provider Last Modified By Organization Details Last Modified Time Details Appointments RECHECK 2025 01:00P Mich RAO APRN Not available Not available Not available Lab glucose, fingerst ick, blood [address] Endocr[facility], [address] [facility], [address], [place], [address], 07/03/2025 13:24:13 hemoglob in A1C, fingerst ick [address] Endocrin[facility], [address] [facility], [address], [place], [address], 07/03/2025 13:24:13 Referral None recorded . Procedures None recorded . Surgeries None recorded . Imaging None recorded . Medication Orders Tresiba FlexTouc h U-200 insulin 200 unit/mL (3 mL) subcutan eous pen 2024 025 [id number], [address], [id number], 07/03/2025 13:24:57 insulin lispro (U-100) 100 unit/mL subcutan eous pen 2024 025 [facility], [address] [place] [address] [address] [place], [place], [id number], 07/03/2025 13:27:57 Farxiga 10 mg tablet 2024 025 [facility], [address] [place] [address] [address] [place], [id number], 07/03/2025 13:27:57 Ozempic 0.25 mg or 0.5 mg (2 mg/3 mL) subcutan eous pen injector 2024 025 [id number], [address] [facility] [address] [place], [place], [id number], 07/15/2025 08:33:59 Patient TargetsNo targets recorded. Patient InstructionsNo instructions recorded. Reason for Referral None Reported. Results Created Date Observation Date Name Description Value Unit Range Abnormal Flag Note LastModifiedBy Organization Detail LastModifiedTime 07/03/20 25 07/03/2025 hemog lobin A1C, finge rstic k hemoglobin A1C % 8.6 4.0 - 5.6 Not Available [facility] [address], [place], [address], 07/02/2025 10:53:29 07/03/20 25 07/03/2025 gluco se, finge rstic k, blood glucose, fingerstick 335 mg/dL 70 - 100 Not Available [facility] [address], [place], [address], 07/02/2025 10:53:28 Result Notes None recorded. Medical Equipment None Reported. Allergies Allergen ID Allergen Name Allergen Category Reaction Reaction Severity Criticality Documentation Date Start Date Code Code System Note Provider Name and Address Organization Details Recorded Time 309165 hydrochlo rothiazid e medicatio n cough severe high 12/14/20241999 5487 RxNorm GUEVARA BELL MAIRA, FRAME NAILER [address] [place], [address], [facility] 5 14:03:38 083424 metformin medicatio n Not available Not available Not available 07/03/2025 6809 RxNorm Not Available rick - External Data Service - prod 06:20:02 032881 lisinopri l medicatio n Not available Not available Not available 07/11/2025 55362 RxNorm Not Available rick - External Data Service - prod 11:24:39 960750 Ozempic medicatio n Not available Not available Not available 07/15/2025 07 RxNorm GUEVARA PEÑARIGO RAO, FRAME NAILER [address] [place], [address], [facility] 08:34:10 Medications Name Sig Start Date Stop Date Status Note LastModified by Organization Details LastModified Time amlodipin e 10 mg tablet Take 1 tablet every day by oral route as directed . 2024 active Patient stated that it has increase d to 50 Not Available Not Available Not Available irbesarta n 300 mg tablet Take 1 tablet every day by oral route as directed . 2024 active Not Available Not Available Not Avai lable insulin lispro (U-100) 100 unit/mL subcutane ous pen Inject 8 units 3 times a day by subcutan eous route before meal(s) for 90 days. 2024 active Not Available Not Available Not Avai lable Farxiga 10 mg tablet Take 1 tablet every day by oral route for 90 days. 2024 active Not Available Not Available Not Avai lable Farxiga 50 mg tab 04/03 completed Not Available Not Available Not Available Tresiba FlexTouch U-200 insulin 200 unit/mL (3 mL) subcutane ous pen Inject 34 units every day by subcutan eous route in the morning for 90 days. 2024 active Not Available Not Available Not Avai lable Ozempic 0.25 mg or 0.5 mg (2 mg/3 mL) subcutane ous pen injector Inject 0.5 mg every week by subcutan eous route for 90 days. 07/15 completed Not Available Not Available Not Available Vitals Date Recorded Body weight Heart rate Systolic And Diastolic Provider Name and Address Organization Details Last Updated DateTime 07/03/2025 81598.1 g 57 /min 180/98 mm[Hg] Sheila Olguin CT - [facility] 07/03/2025 13:05:08 Social History None recorded. Functional Status None recorded. Mental Status None recorded. Family History Nothing Reported. Medical History No medical history recorded. Past Encounters Encounter ID Performer Location Encounter Start Date Encounter Closed Date Diagnosis/Indication Diagnosis SNOMED-CT Code Diagnosis ICD10 Code Diagnosis IMO Codes Diagnosis Note [id number] GUEVARA RAO, JAKOB ENDOCRINO [facility] [place] [facility] [address] [place] [address] 07/03/2025 12:47:58 07/03/2025 13:54:00 Uncontrolled type 2 diabetes mellitus 626610544 E11.65 [id number] In office today A1c of 8.6%, up from 6.7%, down from 9.5%.Lianet cox point-of-c are blood glucose of 335.Gerri forrest states worsening glycemic control is due to non-compli ance with diabetic lifestyle modificati on/diet. Goal A1c is less than 7%Re-discu ssed [...] by it. Recommenda tions:Cont inue Farxiga 10mg dailyIncre ase Tresiba to 34 units in morning.In crease Novolog to 8 units, 15 minutes before meals three times a dayRe-star t Ozempic 0.25mg weekly for 4 weeks, then increase to 0.5mg weeklyChec k blood sugar every morning upon waking, before lunch, and alternate between before dinner and bed.Follow -up in 6-8 weeks Eye exam: Up-to-date as of July 2024 with [facility]. Negative for diabetic retinopath y per patient report. Records have been requested. 10 g monofilame nt test: Up to date.Medic al Nutrition therapy: Consult completed 11/2024MACR November 2024 was positive at 100 Health Concerns Section Related Observation LastModified by Organization Detai ls LastModified Time None Recorded Concern Status LastModified by Organization Details LastModified Time None Recorded Payers Encounter Date Sequence Insurance Name Policy Number Policy Ruth Covered Member ID Ruth Member ID Guarantor Name 07/03/2025 1 [id number] [id number] Marcello Gonzalez [id number] Marcello Murillo Carlos Notes Date Note Type Note Provider Name and Address Organization Details Recorded Time 07/03/2025 text/html ROS as noted in the HPI Marcello is a 54-year-old male who presents office today for follow-up on diabetes management. Patient states he is experiencing worsening glycemic control and this is due to noncompliance diabetic lifestyle modification/diet. He denies any symptoms or episodes of hypoglycemia and states he is going to do better with glucose control. GUEVARA RAO, FRAME NAILER [address] [place], [address], [facility] 07/03/2025 13:56:43
--- OUTSIDE RECORDS SUMMARY | 2025-07-15 20:10 | XMS_ITS | Clinical Summary ---
Author Organization [facility] Address [address] [place] [address] Care Team Providers Care Belt Machine Operator Name Role Phone Unavailable Primary Care Provider Unavailabl e Social History Tobacco Use Types Packs/Day Years Used Date Smoking Tobacco: Never Assessed Sex and Gender Information Value Date Recorded Sex Assigned at Not on file Legal Sex Male 12:19 AM EDT Gender Identity Not on file Sexual Orientation Not on file Plan of Treatment Not on file Medical Devices Not on file
--- OUTSIDE RECORDS SUMMARY | 2025-07-15 20:11 | XMS_ITS | Data Portability ---
Author Organization ISAIAH SUZAN [facility] Address [address] [place] [address] Care Team Providers Care Trailers And Motor [employer] Salesperson Name Role Phone MOON DELANEY Referring Provider Assessment No assessment recorded. Plan of Treatment Reminders Order Date Submit Date Provider Last Modified By Organization Details Last Modified Time Details Appointments RECHECK 2025 01:00P Mich KIM APRN Not available Not available Not available Lab glucose, fingerst ick, blood [address], 1138 [facility], [address] [place] [address], [address], 07/03/2025 13:24:13 hemoglob in A1C, fingerst ick [address], 1138 [facility], [address], [place], [address], 07/03/2025 13:24:13 glucose, fingerst ick, blood [address], 1138 [facility], [address], [place], [address], 04/03/2025 13:39:39 hemoglob in A1C, fingerst ick [address], 1138 [facility], [address], [place], [address], 04/03/2025 13:39:39 glucose, fingerst ick, blood [address] [facility], [address] [place] [address], [address], 01/11/2025 14:38:02 hemoglob in A1C, fingerst ick [address] [facility], [address] [place] [address], [address], 01/11/2025 14:38:02 microalb umin/cre atinine, mass ratio, urine 2024 025 [facility], [address] [place] [address], [address], 12/14/2024 16:31:14 lipid panel, serum 2024 025 [facility], [address] [place] [address], [address], 12/14/2024 16:09:25 hepatic function panel, serum 2024 025 [facility], [address] [place] [address], [address], 12/14/2024 16:09:23 glucose, fingerst ick, blood [address] [facility], [address] [place] [address], [address], 12/14/2024 14:36:39 hemoglob in A1C, fingerst ick [address] [facility], [address] [place] [address], [address], 12/14/2024 14:36:39 Referral nutritio nist/ titian referral [id number], [address] [place], [address], 12/28/2024 17:39:40 Procedures None recorded . Surgeries None recorded . Imaging None recorded . Medication Orders Tresiba FlexTouc h U-200 insulin 200 unit/mL (3 mL) subcutan eous pen 2024 [id number], 629 [facility] [address], ISAIAH Barrera, [id number], 07/03/2025 13:24:57 insulin lispro (U-100) 100 unit/mL subcutan eous pen 2024 [facility], [address] [place] [address] [address] [place], [id number], 07/03/2025 13:27:57 Farxiga 10 mg tablet 2024 [facility], [address] [place] [address] [address] [place], [id number], 07/03/2025 13:27:57 Ozempic 0.25 mg or 0.5 mg (2 mg/3 mL) subcutan eous pen injector 2024 [facility][id number], 629 [facility] [address] [place], [id number], 07/15/2025 08:33:59 Tresiba FlexTouc h U-200 insulin 200 unit/mL (3 mL) subcutan eous pen 2024 025 [facility], [address] [place] [address] [address] [place], [id number], 04/03/2025 13:47:40 insulin lispro (U-100) 100 unit/mL subcutan eous pen 2024 025 [facility], [address] [place] [address] [address] [place], [id number], 04/03/2025 13:47:41 Farxiga 10 mg tablet 2024 025 [facility], [address] [place] [address] [address] [place], [id number], 04/03/2025 13:47:42 Tresiba FlexTouc h U-200 insulin 200 unit/mL (3 mL) subcutan eous pen 2024 025 [facility], [address] [place] [address] [address] [place], [id number], 01/11/2025 14:42:02 insulin lispro (U-100) 100 unit/mL subcutan eous pen [address] [place] [address], [address] [place] [address] [address] [place], [id number], 01/11/2025 14:42:02 Farxiga 10 mg tablet 2024 [facility], [address] [place] [address] [address] [place], [id number], 01/11/2025 14:42:02 Tresiba FlexTouc h U-200 insulin 200 unit/mL (3 mL) subcutan eous pen [id number] [facility], [address] [place] [address] [address] [place], [id number], 01/11/2025 14:03:20 insulin lispro (U-100) 100 unit/mL subcutan eous pen [address] [place] [address], [address] [place] [address] [address], [place], [place], [id number], 12/14/2024 20:16:40 Patient TargetsNo targets recorded. Patient Instructions Encounter Date Encounter Id Patient Instructions Last Modified By Organization Details Last Modified Time 12/14/2024 [id number] medical record request* - Most recent diabetic eye exam RICK Not available 12/25/2024 16:22:35 Reason for Referral Online Content Coordinator/dietitian Refer ral for Uncontrolled type 2 diabetes mellitus Referring Physician: Kay Kim, Endocrinology, Encounter Date: 12/14/2024 Results Created Date Observation Date Name Description Value Unit Range Abnormal Flag Note LastModifiedBy Organization Detail LastModifiedTime 12/15/1912/14/2024 HEPAT IC (LIVE R) PANEL AST 19 U/L 0-40 normal Not Available [facility] [address] [place] [address], [address], 12/14/2024 16:09:23 12/15/19 25 12/14/2024 HEPAT IC (LIVE R) PANEL ALT 20 U/L 0-41 normal Not Available [facility] [address] [place] [address], [phone], 12/14/2024 16:09:23 12/15/19 25 12/14/2024 HEPAT IC (LIVE R) PANEL alkaline phosphatase 126 U/L 40-129 normal Not Available [facility] [address] [place] [address], [address], 12/14/2024 16:09:23 12/15/19 25 12/14/2024 HEPAT IC (LIVE R) PANEL total protein 7.0 g/dL 6.4-8. 3 normal Not Available [facility] [address] [place] [address], [address], 12/14/2024 16:09:23 12/15/19 25 12/14/2024 HEPAT IC (LIVE R) PANEL albumin 4.2 g/dL 3.5-5. 2 normal Not Available [facility] [address] [place] [address], [address], 12/14/2024 16:09:23 12/15/19 25 12/14/2024 HEPAT IC (LIVE R) PANEL bilirubin, total 0.7 mg/dL 0.1-1. 2 normal Not Available [facility] [address] [place] [address], [address], 12/14/2024 16:09:23 12/15/19 25 12/14/2024 HEPAT IC (LIVE R) PANEL bilirubin, direct 0.2 mg/dL 0.0-0. 3 normal Not Available [facility] [address] [place] [address], [address], 12/14/2024 16:09:23 12/15/19 25 12/14/2024 HEPAT IC (LIVE R) PANEL bilirubin, indirect 0.5 mg/dL _(carmela c) 0.0-1. 0 normal Not Available [facility] [address] [place] [address], [address], 12/14/2024 16:09:23 12/15/19 25 12/14/2024 LIPID PROFI LE HDL cholesterol 31 mg/dL 40-242 low Not Available [facility] [address] [place] [address], [address], 12/14/2024 16:09:25 12/15/19 25 12/14/2024 LIPID PROFI LE triglyceride s 129 mg/dL 0-149 normal TRIGL YCERI DE RANGE S CARLO L: < 150 BORDE RLINE HIGH: 150 - 199 HIGH: 200 - 499 VERY HIGH: > OR = 500 Not Available [facility] [address] [place] [address], [address], 12/14/2024 16:09:25 12/15/19 25 12/14/2024 LIPID PROFI LE cholesterol 156 mg/dL 0-199 normal NEVILLE STERO L (TOTA L) RANGE S ROSETTA ABLE: < 200 BORDE RLINE : 200 - 239 HIGHE R RISK: > 239 Not Available [facility] [address] [place] [address], [address], 12/14/2024 16:09:25 12/15/19 25 12/14/2024 LIPID PROFI LE LDL cholesterol 99 mg/dL _(carmela c) 0-99 normal LDL NEVILLE STERO L RANGE S OPTIM AL: < 100 NEAR/ ABOVE OPTIM AL: 100 - 129 BORDE RLINE HIGH: 130 - 159 HIGH: 160 - 189 VERY HIGH: > OR = 190 Not Available [facility] [address] [place] [address], [address], 12/14/2024 16:09:25 12/15/19 25 12/14/2024 LIPID PROFI LE chol/HDL ratio (calc) 5.0 mg/dL normal NO CARLO L RANGE ESTAB LISHE D FOR NEVILLE STERO L/HDL RATIO (CALC ULATE D). Not Available [facility] [address] [place] [address], [phone], 12/14/2024 16:09:25 12/15/19 25 12/14/2024 MICRO ALBUM IN/CR EAT RATIO microalbumin , random 20 mg/L 0-19 high Not Available [facility] [address] [place] [address], [address], 12/14/2024 16:31:14 12/15/19 25 12/14/2024 MICRO ALBUM IN/CR EAT RATIO creatinine,u r,random 20 mg/dL normal NO CARLO L RANGE ESTAB LISHE D FOR RANDO M URINE . Not Available [facility] [address] [place] [address], [address], 12/14/2024 16:31:14 12/15/19 25 12/14/2024 MICRO ALBUM IN/CR EAT RATIO MA/creatinin e ratio 100 mcg/m g_cre at 0-29 high Not Available [facility] [address] [place] [address], [address], 12/14/2024 16:31:14 12/15/19 25 12/14/2024 hemog lobin A1C, finge rstic k hemoglobin A1C % 13.3 % 4.0 - 5.6 Not Available [facility] [place] [place] [address] [place] [address], [address], 12/14/2024 14:10:12 12/15/19 25 12/14/2024 gluco se, finge rstic k, blood glucose, fingerstick 303 mg/dL 70 - 100 Not Available [facility] [address] [place] [address], [address], 12/14/2024 14:10:03 01/12/20 25 01/11/2025 hemog lobin A1C, finge rstic k hemoglobin A1C % 9.5 % 4.0 - 5.6 Not Available [facility] [address] [place] [address], [address], 01/10/2025 09:31:17 01/12/20 25 01/11/2025 gluco se, finge rstic k, blood glucose, fingerstick 83 mg/dL 70 - 100 Not Available [facility] [address], [address], 01/10/2025 09:31:17 04/03/20 25 04/03/2025 hemog lobin A1C, finge rstic k hemoglobin A1C % 6.7 4.0 - 5.6 Not Available [facility] [address], [place], [address], 04/03/2025 13:19:39 04/03/20 25 04/03/2025 gluco se, finge rstic k, blood glucose, fingerstick 172 mg/dL 70 - 100 Not Available [facility] [address], [place], [address], 04/03/2025 13:19:23 07/03/20 25 07/03/2025 hemog lobin A1C, anthony rstic k hemoglobin A1C % 8.6 4.0 - 5.6 Not Available [facility] [address], [place], [address], 07/02/2025 10:53:29 07/03/20 25 07/03/2025 gluco se, anthony rstic k, blood glucose, fingerstick 335 mg/dL 70 - 100 Not Available [facility] [address], [place], [address], 07/02/2025 10:53:28 Result Notes None recorded. Medical Equipment None Reported. Allergies Allergen ID Allergen Name Allergen Category Reaction Reaction Severity Criticality Documentation Date Start Date Code Code System Note Provider Name and Address Organization Details Recorded Time 189706 hydrochlo rothiazid e medicatio n cough severe high 12/14/20241999 5487 RxNorm KAY KIM, LOSS PREVENTION OPERATIONS MANAGER [address] [place], [address], [facility] 5 14:03:38 815585 metformin medicatio n Not available Not available Not available 07/03/2025 6809 RxNorm Not Available rick - External Data Service - prod 06:20:02 193315 lisinopri l medicatio n Not available Not available Not available 07/11/2025 09648 RxNorm Not Available rick - External Data Service - prod 5 11:24:39 688215 Ozempic medicatio n Not available Not available Not available 07/15/2025 07 RxNorm KAY KIM, LOSS PREVENTION OPERATIONS MANAGER [address] [place], [address], [facility] 5 08:34:10 Medications Name Sig Start Date Stop [...] Not Available Vitals Date Recorded Body weight Systolic And Diastolic Provider Name and Address Organization Details Last Updated DateTime 12/14/2024 78026.26 g 132/88 mm[Hg] KAY KIM, LOSS PREVENTION OPERATIONS MANAGER [address] [place], [address], [facility] 12/14/2024 14:02:17 Date Recorded Body weight Heart rate Systolic And Diastolic Provider Name and Address Organization Details Last Updated DateTime 01/11/2025 16323.18 g 72 /min 166/110 mm[Hg] [facility] 01/11/2025 14:04:19 Date Recorded Body weight Heart rate Systolic And Diastolic Provider Name and Address Organization Details Last Updated DateTime 04/03/2025 45247.18 g 78 /min 167/104 mm[Hg] [facility] 04/03/2025 13:17:07 Date Recorded Body weight Heart rate Systolic And Diastolic Provider Name and Address Organization Details Last Updated DateTime 07/03/2025 97654.1 g 57 /min 180/98 mm[Hg] Sheila Olguin [facility] 07/03/2025 13:05:08 Social History None recorded. Functional Status None recorded. Mental Status None recorded. Family History Nothing Reported. Medical History No medical history recorded. Past Encounters Encounter ID Performer Location Encounter Start Date Encounter Closed Date Diagnosis/Indication Diagnosis SNOMED-CT Code Diagnosis ICD10 Code Diagnosis IMO Codes Diagnosis Note [id number] KAY KIM APRN [facility] [address] [place] [address] 12/14/2024 13:52:49 12/17/2024 07:54:10 Uncontrolled type 2 diabetes mellitus 174283962 E11.65 [id number] A1c from labs on the 2024 was [...] 70. Once greater than 70 follow-up with protien. Labs from November 23, 2024:BUN 24Creatini ne 0.88GFR 101 Recommenda tions:MACR , lipid panel, and LFTs checked today, or when patient fasting statusStop OzempicCon tinue Farxiga 10mg dailyStart Tresiba 22 units in morning. Increase by 2 units every three days for goal morning blood sugar between 80-130 (patient educated on this medication , how to patient assessment coordinator, and potential side effects).S tart Novolog 6-8 units, 15 minutes before meals three times a day (patient educated on this medication , how to patient assessment coordinator, and potential side effects).C heck blood sugar every morning upon waking, before lunch, and alternate between before dinner and bed.Diabet ic nutrition consult ASAPFollow -up in 4 weeks Eye exam: Up-to-date as of July 2024 with [facility]. Negative for diabetic retinopath y per patient report. Records requested. 10 g monofilame nt test: Will perform at next visitMedi al Nutrition therapy: Consult placed at today's visit Essential hypertension 40437356 I10 74466 Goal BP less than 140/90BP in office today 132/88Cont inue current irbesartan , amlodipine daily as prescribed by PCP.Contin ue BP monitoring at home. [id number] KAY KIM APRN [facility]CRINO [facility] [address] [place] [address] 01/11/2025 13:57:52 01/11/2025 14:40:19 Uncontrolled type 2 diabetes mellitus 973722053 E11.65 [id number] In office today A1c of 9.5%, down from 13.3%.[facility] point-of-c are blood glucose of 83. [...] exam: Up-to-date as of July 2024 with [facility]. Negative for diabetic retinopath y per patient report. Records have been requested. 10 g monofilame nt test: Performed today and unremarkab leMedical Nutrition therapy: Consult placed prior visit, patient provided with dietitian phone number to call and schedule this.MACR November 2024 was positive at 100 [id number] KAY KIM APRN ENDOCRINO LOGY [facility] [address] [place] [address] 04/03/2025 13:04:53 04/03/2025 13:34:03 Uncontrolled type 2 diabetes mellitus [id number] E11.65 [id number] In office today A1c of 6.7%, down [...] exam: Up-to-date as of July 2024 with [facility]. Negative for diabetic retinopath y per patient report. Records have been requested. 10 g monofilame nt test: Up to date.Medic al Nutrition therapy: Consult completed 11/2024MACR November 2024 was positive at 100 Essential hypertension [id number] I10 48876 Goal BP less than 140/90BP in office today 167/104 (patient states he has not had BP medicine in 2 days due to travel, however he will start back on this tomorrow). Continue current irbesartan , amlodipine daily as prescribed by PCP.Contin ue BP monitoring at home. [id number] KAY KIM APRN END[facility]CRINO [facility] [address] [place] [address] 07/03/2025 12:47:58 07/03/2025 13:54:00 Uncontrolled type 2 diabetes mellitus [id number] E11.65 [id number] In office today A1c of 8.6%, up from 6.7%, down from 9.5%.[facility] point-of-c are blood glucose of 335.Patijosh t states worsening glycemic control is due to [...] exam: Up-to-date as of July 2024 with [facility]. Negative for diabetic retinopath y per [...] Member ID Ruth Member ID Guarantor Name 07/08/2025 1 HUMERA-ISAIAH (PPO) [id number] Marcello Gonzalez [id number] Marcello Gonzalez Notes Date Note Type [...] Past medical history significant for hypertension. KAY KIM APRN [address] [place], [address], [facility] 12/14/2024 15:00:19 01/11/2025 text/html ROS as noted in the HPI Marcello is a 54-year-old male who presents office today for follow-up on diabetes management. Patient states he is experiencing much better glucose control since initial visit with our office and starting insulin therapy. KAY KIM APRN [address] [place], [address], [facility] 01/11/2025 14:38:24 04/03/2025 text/html ROS as noted in the HPI Marcello is a 54 year old male who presents to office today for followup on diabetes management. KAY KIM APRN [address] [place], [address], [facility] 04/03/2025 13:40:05 07/03/2025 text/html ROS as noted in the HPI Marcello is a 54-year-old male who presents office today for follow-up on diabetes management. Patient states he is experiencing worsening glycemic control and this is due to noncompliance diabetic lifestyle modification/diet. He denies any symptoms or episodes of hypoglycemia and states he is going to do better with glucose control. KAY KIM APRN [address] [place], [address], [facility] 07/03/2025 13:56:43
--- OUTSIDE RECORDS SUMMARY | 2025-07-15 20:11 | XMS_ITS | Referral Summary ---
Author Organization [employer] ([place], [place], [place], [place], [place]) Address [address] [place] [address] Care Team Providers Care Electrical Automation Engineer Name Role Phone Unavailable Primary Care Provider Unavailabl e Social History Tobacco Use Types Packs/Day Years Used Date Smoking Tobacco: Never Assessed Sex and Gender Information Value Date Recorded Sex Assigned at Not on file Legal Sex Male 4:29 PM CDT Gender Identity Not on file Sexual Orientation Not on file Plan of Treatment Not on file
--- OUTSIDE RECORDS SUMMARY | 2025-07-15 20:11 | XMS_ITS | Clinical Summary ---
Author Organization [employer] ([place], [place], [place], [place], [place]) Address [address] [place] [address] Care Team Providers Care Inbound Ingredient Logistics Specialist Name Role Phone Unavailable Primary Care Provider [...]
--- OUTSIDE RECORDS SUMMARY | 2025-07-15 20:11 | XMS_ITS | Patient Health Record ---
[facility] Address [address] [facility] [address] [place] [id number] Care Team Providers Care Telephone Operators Supervisor Name Role Phone Compa Lizarraga Unavailable [phone] Davi Pinto Unavailable [phone] Charla Starkey Unavailable [phone] Allergies Allergen (clinical drug ingredient) Drug/Non Drug Allergy documented on EMR Reaction Allergy Type Onset Date Status metformin metFORMIN HCl diarrhea Drug Allergy Act aiden hydrochlorothiazide hydroCHLOROthiazide Unknown Drug Aller gy Active Results Component Value Reference Range Notes P-Basic Metabolic Panel (BMP ) Reviewed date:11/27/2024 09:31:12 AM Interpretation:gluc 255, bun 24 Performing Lab: Notes/Report: Test performed by [employer] [address] [place], [place] [address] [place] , [address], [place] [address] Geoff Read MD, Long Term Acute Care Registered Nurse CLIA: [id number] Sodium 139 135-145 mmol/L Potassium 3.7 3.5-5.3 mmol/L Chloride 99 97-108 mmol/L CO2 25 22-32 mmol/L Glucose 255 65-99 mg/dL BUN 24 6-20 mg/dL Creatinine 0.88 0.70-1.30 mg/dL Calcium 9.1 8.6-10.4 mg/dL eGFR by Creatinine 101 >59 mL/min/1.73m2 P-Hemoglobin A1C Reviewed date:11/27/2024 09:31:12 AM Interpretation:13.3 Performing Lab: Notes/Report: Test performed by [employer] [address] [place], [place] [address] [address], [place] [address] Geoff Read MD, Long Term Acute Care Registered Nurse CLIA: [id number] Hemoglobin A1C 13.3 <5.7 % The following HbA1c ranges recommended by the [place] [employer] (ADA) may be used as an aid in the diagnosis of diabetes mellitus. HbA1c Suggested Diagnosis >=6.5% Diabetic 5.7% - 6.4% Pre-Diabetic <5.7% Non-Diabetic Estimated Average Glucose Reviewed date:11/27/2024 09:31:12 AM Interpretation:335 Performing Lab: Notes/Report: Test performed by [employer] [address] [place] [address] [address], [place] [address] Geoff Read MD, Long Term Acute Care Registered Nurse CLIA: [id number] Estimated Average Glucose (eAG) 335 Estimated Average Glucose (eAG) is calculated using the equation eAG = (28.7 x HbA1c) - 46.7 based on the guidelines established by the ADA. If the patient has certain diseases including kidney disease, sickle cell anemia, thalassemia, or is taking medications such as dapsone, erythropoietin, or iron, eAG should not be evaluated. Nerve Conduction Study Reviewed date:03/13/2025 01:02:34 PM Interpretation:Polyneuropathy Performing Lab: Notes/Report: Polyneuropathy P-Basic Metabolic Panel (BMP ) Reviewed date:07/02/2025 09:16:10 AM Interpretation:Glu 263, BUN 21 Performing Lab: Notes/Report: Test performed by [employer] [address] [place] [address] [address], [place] [address] Steffen Mejia MD, PhD, FCAP, Long Term Acute Care Registered Nurse CLIA: [id number] Sodium 142 135-145 mmol/L Potassium 3.6 3.5-5.3 mmol/L Chloride 99 97-108 mmol/L CO2 32 20-32 mmol/L Glucose 263 65-99 mg/dL BUN 21 6-20 mg/dL Creatinine 0.91 0.70-1.30 mg/dL Calcium 8.9 8.6-10.4 mg/dL eGFR by Creatinine 99 >59 mL/min/1.73m2 P-Lipid Panel Reviewed date:08/20/2024 08:47:27 AM Interpretation:trigs 158, hdl 32, chol/hdl 5.31, non-hdl 138, ldl/hdl 3.3 Performing Lab: Notes/Report: Test performed by [employer] [address] [place] [address] [address], [place] [address] Geoff Read MD, Long Term Acute Care Registered Nurse CLIA: [id number] Cholesterol 170 <200 mg/dL Triglycerides 158 <150 [...] Results: 106 Units: mg/dL % Change: -20% P-Comprehensive Metabolic Pa ezequiel (CMP) Reviewed date:08/20/2024 08:47:27 AM Interpretation:gluc 230 Performing Lab: Notes/Report: Test performed by [employer] [address] [place] [address] , [address], [place] [address] Geoff Read MD, Long Term Acute Care Registered Nurse CLIA: [id number] Sodium 141 135-145 mmol/L Potassium 3.9 3.5-5.3 [...] 0.9 <0.2-1.2 mg/dL A/G Ratio 1.8 1.1-2.5 Glycohemoglobin A1c (in hous e) Reviewed date:08/17/2024 12:26:11 PM Interpretation:9.1% Performing Lab: Notes/Report: 9.1% glycohemoglobin 9.1% 5 - 6.5 % CBC Venipuncture (in house) Reviewed date:08/17/2024 12:27:21 [...] - 38 platlet 136 100 - 400 Glucose (In-House) Reviewed date:08/17/2024 12:25:35 PM Interpretation:260 Performing Lab: Notes/Report: 260 blood glucose 260 74 - 106 mg/dL Carotid Duplex Reviewed date:07/02/2025 09:16:10 AM Interpretation:Less than 50%, bilaterally Performing Lab: Notes/Report: Less than 50%, bilaterally Echocardiogram Reviewed date:07/02/2025 09:16:10 AM Interpretation: Performing Lab: Notes/Report: Influenza Screen (in house) Reviewed date:08/02/2024 11:49:35 [...] Interpretation:neg Performing Lab: Notes/Report: neg Result: neg Influenza Screen (in house) Reviewed date:08/09/2024 03:57:44 [...] PM Interpretation: Performing Lab: Notes/Report: Result: Neg Reason For Referral No Information Medications Medication SIG (Take, Route, Frequency, Duration) [...] Once a day; Duration: 90 days Active Problems Problem Type SNOMED Code ICD Code Onset Dates Problem Status W/U Status Risk Notes Problem Essential hypertension (82782094) Essential hypertension (I10) Active confirmed Problem Type II diabetes mellitus without complication (483922584) Type 2 diabetes mellitus without complication, without long-term current use of insulin (E11.9) Active confirmed Problem Pure hypercholesterolemia (969855879) Pure hypercholesterolemia (E78.00) Active confirmed Problem Hyperglycemia due to type 2 diabetes mellitus (220320541413900) Uncontrolled type 2 diabetes mellitus with hyperglycemia (E11.65) Active confirmed Problem Hypoglycemia due to diabetes mellitus (disorder) (319018435) 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) Active confirmed Vital Signs Heart Rate 68 /min 06/28/2025 Blood pressure diastolic 82 mm Hg 06/28/2025 Height 69 in 06/28/2025 Blood pressure systolic 132 mm Hg 06/28/2025 Weight 193.4 lbs 06/28/2025 BMI 28.56 kg/m2 06/28/2025 Encounters Encounter Location Date Provider Diagnosis [facility] [facility] [address] [place] [id number] 08/02/2024 Charla Crowdy Acute URI J06.9 ; Br onchitis J40 and Bilateral acute otitis media H66.93 [facility] [address] [place] [id number] 08/09/2024 Charla Crowdy Acute URI J06.9 ; Br onchitis J40 and Bilateral acute otitis media H66.93 [facility] [address] [place] [id number] 08/17/2024 [facility] [place] Cough, unspecified t ype R05.9 ; Type 2 diabetes mellitus without complication, without long-term current use of insulin E11.9 ; Essential hypertension I10 and Pure hypercholesterolemia E78.00 [facility] [address] [place], [place] [id number] 11/23/2024 [facility] [place] Type 2 diabetes margot itus without complication, without long-term current use of insulin E11.9 and BMI 24.0-24.9, adult Z68.24 [facility] [address] [place], [place] [id number] 02/21/2025 [facility] [place] Neuropathic pain, le g, bilateral G57.93 and Diabetic hypoglycemia E11.649 [facility] [address] [place], [place] [id number] 05/30/2025 Charla Crowdy Essential hypertensi on I10 [facility] [address] [place], [place] [id number] 06/07/2025 [facility] [place] Essential hypertensi on I10 [facility] [address] [place], [place] [id number] 06/28/2025 [facility] [place] Essential hypertensi on I10 [facility] [address] [place], [place] [id number] 07/02/2025 [facility] [place] [facility] [address] [place], [place] [id number] 08/02/2024 Charla Crowdy [facility] [address] [place], [place] [id number] 08/20/2024 [facility] [place] [facility] [address] [place], [place] [id number] 11/27/2024 [facility] [place] Uncontrolled type 2 diabetes mellitus with hyperglycemia E11.65 [facility] [address] [place], [place] [id number] 03/13/2025 [facility] [place] [facility] [address] [place], [place] [id number] 05/31/2025 Charla Starkey [facility] [address] [facility] [address] [place], [place] [id number] 06/14/2025 [facility] [place] Essential hypertensi on I10 Assessments Encounter Date Diagnosis (ICD Code) Assessment Notes Treatment Notes Treatment Clinical Notes Section Notes 08/17/2024 Cough, unspecified t ype (ICD-10 - R05.9) 11/23/2024 Type 2 diabetes margot itus without complication, without long-term current use of insulin (ICD-10 - E11.9) 11/23/2024 BMI 24.0-24.9, adult (ICD-10 - Z68.24) 11/27/2024 Uncontrolled type 2 diabetes mellitus with hyperglycemia (ICD-10 - E11.65) 02/21/2025 Diabetic hypoglycemi a (ICD-10 - E11.649) Patient needs to resume CGM JUNE, he will notify his Endo 02/21/2025 Neuropathic pain, le g, bilateral (ICD-10 - G57.93) 05/30/2025 Essential hypertensi on (ICD-10 - I10) 06/07/2025 Essential hypertensi on (ICD-10 - I10) Blood pressure journal 06/14/2025 Essential hypertensi on (ICD-10 - I10) 06/28/2025 Essential hypertensi on (ICD-10 - I10) Much better control today 08/02/2024 Bronchitis (ICD-10 - J40) 08/02/2024 Acute URI (ICD-10 - J06.9) Patient will check BP when he gets home. If still elevated, he will stop the OTC cough and congestion medication and call back for a rx cough medication or start coricidin. 08/09/2024 Bronchitis (ICD-10 - J40) Resolved. 08/09/2024 Acute URI (ICD-10 - J06.9) Will switch from Mucinex D to coricidin as his BP is still elevated. He will monitor it at home. 08/17/2024 Type 2 diabetes margot itus without complication, without long-term current use of insulin (ICD-10 - E11.9) 08/17/2024 Essential hypertensi on (ICD-10 - I10) 08/09/2024 Bilateral acute otit is media (ICD-10 - H66.93) 08/02/2024 Bilateral acute otit is media (ICD-10 - H66.93) Zithromax will cover this as well. 08/17/2024 Pure hypercholesterolemia (ICD-10 - E78.00) 05/30/2025 Other Patient saw the retina specialist and they are requesting a sleep study, echo, and carotid U/S due to his exam findings. We do not yet have records and are waiting on them but this will need to be ordered once we have a diagnosis. Plan Of Treatment Next Appt Details Provider Name:Compa martinez, 08/28/2025 09:15:00 AM, [address], [address], [place], [place], [id number], Insurance Providers Payer Name Payer Address Payer Phone Subscriber Number Group Number Insured Name Patient Relationship to Insured Coverage Start Date Coverage End Date CANDI PHILLIPS [facility] [address] [place] [address] [id number] Marcello Rasmsusen Self - patient is the insured Medical (General) History Medical History History ICD Code Hypertension Diabetes Type 2 Hyperlipidemia Allergic Rhinitis Diverticulosis Surgical History Surgery Date(Month/Year) Appendectomy 1979 Colonoscopy 2021
--- OUTSIDE RECORDS SUMMARY | 2025-07-15 20:12 | XMS_ITS | Patient Health Record ---
Author Organization [facility] [place] Address [address] [place] [address] Care Team Providers Care Marine Service Operator Name Role Phone Luis A Camilo Primary Care Provider [phone] Brianna Martin Unavailable [phone] Migration, Provider Unavailable Unavailable Allergies Allergen (clinical drug ingredient) Drug/Non Drug Allergy documented on EMR Reaction Allergy Type Onset Date Status lisinopril Lisinopril cough Drug Allergy Active hydrochlorothiazide hydroCHLOROthiazide hyponatremia D rug Allergy Active Medications Medication SIG (Take, Route, Frequency, Duration) Notes Start Date End Date Status metFORMIN HCl 1000 MG 1 tab orally twice daily Active Aspirin BUFFERED 81 MG 81 MG ORALLY ONCE A DAY; Duration: 30 DAY(S) *Please review and pick correct strength-formulat ion from [email or web address] options. If intended option is not shown, discontinue and re-order from Quick Search* Active PEN NEEDLE 8MM 31G QD; Duration: 90 *Please revi ew for potential replacement for e-prescription and drug interaction check* 03/16/2017 Active Losartan Potassium 100 MG 1 tab by mouth once daily; Duration: 90 days Active OZEMPIC 2 MG/1.5 ML (0.25 MG OR 0.5 MG DOSE) 0.5MG SUBCUTANEOUSLY ONCE A WEEK; Duration: 28 DAYS *Please review for potential replacement for e-prescription and drug interaction check* 04/14/2022 Active Jardiance 25 MG 1 tab(s) orally once a day (in the morning); Duration: 90 days 12/11/2021 Active Diclofenac Sodium 75 MG 1 tab(s) orally 2 times a day x 5 days then twice a day prn; Duration: 15 days 06/04/2022 Active Tou[place]nathano Max SoloStar 300 UNIT/ML INJECT 50 UNITS UNDER THE SKIN ONCE DAILY Active Escitalopram Oxalate 10 MG 1 tab(s) orally once a day; Duration: 90 days Active hydrALAZINE HCl 50 MG 1 tab(s) orally twice a day; Duration: 90 days Active FREESTYLE HAWA 2 SENSOR KIT 14 DAY 1 INTERDERMAL DAILY; Duration: 14 DAYS *Please review for potential replacement for e-prescription and drug interaction check* 04/19/2022 Active Cyclobenzaprine HCl 5 MG 1 tab(s) orally 3 times a day PRN spasm; Duration: 10 day(s) 06/04/2022 Active Atorvastatin Calcium 40 MG 1 tab orally daily; Duration: 90 days Active Carvedilol 25 MG 1 tab(s) orally 2 times a day; Duration: 90 days Active POTASSIUM CHLORIDE ([id number]-CXA M10) 10 MEQ TAKE ONE TABLET BY MOUTH EVERY DAY; Duration: 30 *Please review for potential replacement for e-prescription and drug interaction check* Active Immunizations Vaccine Route Administration Date Status Comme nts Flublok IM Intramuscular 04/28/2022 Administered Influenza-Fluzone 3+years (NON-MEDICARE) IM Intramuscular 04/29/2017 Administered Influenza-Fluzone 3+years (NON-MEDICARE) IM Intramuscular 03/27/2018 Administered Problems Problem Type SNOMED Code ICD Code Onset Dates Problem Status W/U Status Risk Notes Problem Type II diabetes mellitus without complication (804426782) Type 2 diabetes mellitus without complications (E11.9) Active confirmed Problem Generalized anxiety disorder (17126323) Generalized anxiety disorder (F41.1) Active confirmed Problem Duodenitis (18637849) Duodenitis without bleeding (K29.80) Active confirmed Problem Sciatica (08504967) Lumbago with sciatica, right side (M54.41) Active confirmed Problem Sciatica (92500164) Lumbago with sciatica, left side (M54.42) Active confirmed Problem Balanitis (87102770) Balanitis (N48.1) Active confirmed Problem Erectile dysfunction (032466052) Erectile dysfunction (N52.9) Active confirmed Problem Hyperlipidemia (16973722) Hyperlipidemia (E78.5) Active confirmed Problem Essential hypertension (32226894) Hypertension, essential (I10) Active confirmed Problem Long-term current use of insulin (617984261) 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.4) Active confirmed Problem Hypoglycemia (999896199) Hypoglycemia (E16.2) Active confirmed Problem Fatty liver (786782435) Fatty liver (K76.0) Active confirmed Problem Angina pectoris (632856937) Angina pectoris (I20.9) Active confirmed Problem Acute constipation (039305874) Acute constipation (K59.00) Active confirmed Problem Benign prostatic hypertrophy without outflow obstruction (314206316) BPH without urinary obstruction (N40.0) Active confirmed Problem Chronic serous otitis media (60498322) Left chronic serous otitis media (H65.22) Active confirmed Encounters Encounter Location Date Provider Diagnosis [facility] [address] [facility] [address] [place] [address] 11/03/2024 Provider Migration Plan Of Treatment Pending Test Test Name Order Date Urinalysis 09/12/2015 H-CBC with AUTO DIFF 03/01/2012 H-CBC with AUTO DIFF 08/27/2014 H-URINE CULTURE 02/16/2014 H-CMP 08/27/2014 H-CMP 11/14/2009 H-CMP 03/01/2012 H-LIPID PANEL 11/14/2009 H-LIPID PANEL 08/27/2014 H-AMYLASE 03/01/2012 H-LIPASE 03/01/2012 H-HGBA1C 08/27/2014 H-PSA SCREEN 08/27/2014 H-MICROALBUMIN URINE 10/28/2016 C-URINE CULTURE 11/22/2013 MRA : Neck w/Contrast 07/31/2018 N-CBC with raciel slide reading by patho logist for leukocytosis 02/09/2017 H-HEPATITIS C PROFILE 02/09/2017 M-Complete Blood Count Auto Diff 023 M-Comprehensive Metabolic Panel 08/09/19 23 M-Hemoglobin A1C 08/09/2022 M-Lipid Panel 08/09/2022 Rapid Covid Antigen 05/01/2022 Future Test Test Name Order Date H-CBC with AUTO DIFF 03/19/2012 H-VITAMIN B12 03/19/2012 H-CMP 03/19/2012 H-LIPID PANEL 03/19/2012 H-HGBA1C 03/19/2012 H-TSH 03/19/2012 H-CMP 06/13/2017 H-LIPID PANEL 06/13/2017 H-HGBA1C 06/13/2017 Insurance Providers Payer Name Payer Address Payer Phone Subscriber Number Group Number Insured Name Patient Relationship to Insured Coverage Start Date Coverage End Date [facility] [address] [place] [address] [id number] Marcello Gonzalez Self - patient is the insured Medications Administered Medication Instructions Date of Administration Dosage Notes Triamcinolone Acetonide 40mg Injection 05/19/2018 1 mL Kenalog 05/29/2013 1 Medical (General) History Medical History History ICD Code hypertension Diabetes Anxiety diverticulitis Surgical History Surgery Date(Month/Year) appendectomy vasectomy circumcision 2020 colonoscopy 03/2022
[2025-07-15] MEDS: HEPARIN SODIUM 5,000 UNIT/ML VIAL 5000 UNIT SUBCUT (21:02)
[2025-07-15] MEDS: PANTOPRAZOLE 40MG TABLET 40 MG PO (21:02)
[2025-07-15] MEDS: humaLOG 100 UNITS/ML 10ML VIAL (SSI) SUBCUT (21:10)
[2025-07-15 21:20] LABS: POC Glucose,Bedside 271 gm/dL (70-110)
[2025-07-15 21:47] LABS: Hepatitis C Ab Qual. W/ RFX NEGATIVE (Negative)
[2025-07-15 21:55] LABS: Troponin I 0.04 ng/ml (0.00-0.034)
--- NOTE | 2025-07-15 23:27 | P.HP_ITS ---
<Statement entered by Tim Winter MD - 07/19/25 12:11> Agree with the plan of care as outlined in PLACEMENT SECRETARY below. History of Present Illness *Admission Date: 07/15/25 *Reason for visit:: Syncope *History of present illness: Marcello Gonzalez is a 54-year-old male with past medical history significant for hypertension, type 2 diabetes mellitus, chronic back pain, gastritis. Presents to [facility] with complaints of dizziness/lightheadedness. Patient reports episode occurred earlier today with a similar prior episode that occurred a little over a week ago. Describes episodes similar when hypoglycemic. Reports blood glucose checked during episode and noted to be normal. Reports recent medication addition of Ozempic, which has since been discontinued. Previously placed on Ozempic prior to recently. States previoulsy medication was discontinued due complications that included blurry/double vision. Patient states this time he was placed on a low dose of Ozempic to avoid complications. Unfortunately after taking the first dose of he began to have dizziness/lightheadedness. Ozempic was discontinued again after initial episode. Reports episode reoccurred today and opted to follow-up to the ED. Patient reported feeling nauseous during episode but denies emesis. Denies blackout or full loss of consciousness during episode. Denies any head injury. Reports significant decrease in appetite since initial dose. During ED workup troponin levels were noted to be elevated. ED provider discussed case with cardiology team Dr. Subramanian who agreed with hospital admission for further cardiac/NSTEMI workup. Denies shortness of breath, chest pain, abdominal pain, urinary symptoms, speech or gait deficit. Initial ED workup included laboratory studies and imaging study. Significant laboratory findings included potassium 2.8, troponin 0.05. Imaging studies included CT head, CTA head and neck which I personally reviewed and were unremarkable for any acute findings. Upon assessment of patient at bedside he is without acute distress. Resting in bed comfortably. Hemodynamically stable. [facility] Disclaimer: The information contained in this section may have been updated after the patient was seen, as this information can be updated by other users. Medical History (Updated 07/16/25 @ 01:06 by Yelena Bautista APRN) Diabetes HLD (hyperlipidemia) Hypertension Surgical History Hx of appendectomy Social History Smoking Status: Never smoker alcohol intake: never substance use type: denies use current occupational status: employed Travel in the last 8 weeks?: None household members: spouse housing: house current occupation: factory employee caffeine: No Have you lived/traveled outside [place] in past 30 days?: No Contact w/someone who lives/traveled outside US past 30 days?: No Exposure to someone with infectious disease in past 14 days?: No Do you have a fever (greater than 100.4 F or 38 C)?: No Have you tested positive for COVID-19?: No Exposed to someone with COVID-19 in past 14 days?: No Do you have a sore throat?: No Do you have a cough?: No Do you have any weakness?: No Do you have any diarrhea?: No Are you experiencing any unusual bleeding?: No Do you have any muscle aches/pain?: No Do you have any abdominal pain?: No Are you experiencing loss of taste or smell?: No Other Medical History Have you received the Flu Vaccine for this season: No Have you received the Pneumonia Vaccine: No Review of Systems Review of Systems Review of systems:: pertinent systems reviewed and negative unless documented below Constitutional Constitutional: Reports as per HPI and Reports poor appetite Eyes Eyes: Reports system reviewed and no additional complaints, except as documented and Reports as per HPI ENT Ears, Nose, Mouth, and Throat: Reports as per HPI and Reports dizziness *Cardiovascular Cardiovascular: Reports as per HPI and Reports lightheadedness *Respiratory Respiratory: Reports system reviewed and no additional complaints, except as documented and Reports as per HPI *Gastrointestinal Gastrointestinal: Reports as per HPI *Genitourinary Genitourinary: Reports as per HPI *Musculoskeletal Musculoskeletal: Reports as per HPI Integumentary/Breasts Skin/Breast: Reports as per HPI *Neurologic Neurologic: Reports as per HPI and Reports dizziness Psychiatric Psychiatric: Reports system reviewed and no additional complaints, except as documented and Reports as per HPI Endocrine Endocrine: Reports as per HPI Hematologic/Lymphatic Hematologic/Lymphatic: Reports system reviewed and no additional complaints, except as documented and Reports as per HPI Allergic/Immunologic Allergic/Immunologic: Reports system reviewed and no additional complaints, except as documented and Reports as per HPI Meds Home Medications and Allergies Home Medications ?Medication ?Instructions ?Recorded ?Confirmed ?Type amlodipine 10 mg tablet 10 mg PO DAILY 07/15/2507/01 History chlorthalidone 25 mg tablet 12.5 mg PO DAILY 07/15/25 07/15/25 History dapagliflozin propanediol 10 mg 10 mg PO DAILY 5 07/15/25 History tablet (Farxiga) insulin degludec 200 unit/mL (3 34 unit SQ DAILY 07/1507/15/25 History mL) subcutaneous pen (Tresiba FlexTouch U-200 insulin) insulin lispro 100 unit/mL 6 unit SQ TID 07/15/2507/01 History subcutaneous pen irbesartan 300 mg tablet 300 mg PO DAILY 07/15/25 History metoprolol succinate 50 mg 50 mg PO DAILY 07/15/25 History tablet,extended release 24 hr New Prescriptions to Start Prescriptions: Allergies Allergy/AdvReac Type Severity Reaction Status Date / Time hydrochlorothiazide Allergy Cough Verified 07/15/25 20:49 semaglutide (From Ozempic) AdvReac Dizziness Verified 07/15/25 20:49 Exam Data for Last 24 hours Vital signs and Labs for Last 24 Hours: Temp Pulse Resp BP Pulse Ox O2 Del Method 97.6 F 79 18 129/83 98 Room Air 07/15/25 20:10 07/15/25 20:10 07/15/25 20:10 07/15/25 20:10 07/15/25 20:10 07/15/25 22:56 Laboratory Results - last 24 hr 07/15/25 14:46: WBC 7.6, RBC 5.18, Hgb 15.8, Hct 44.9, MCV 86.7, MCH 30.5, MCHC 35.2, RDW 11.8, Plt Count 169, MPV 10.2, Neut % (Auto) 68.2, Lymph % (Auto) 18.9, Ida % (Auto) 10.9 H, Eos % (Auto) 1.1, Baso % (Auto) 0.5, Neut # (Auto) 5.2, Lymph # (Auto) 1.4, Ida # (Auto) 0.8, Eos # (Auto) 0.1, Baso # (Auto) 0.0, PT 10.8, INR 0.97, Sodium 140, Potassium 2.8 L*, Chloride 96 L, Carbon Dioxide 36 H, Anion Gap 10.8, BUN 32 H, Creatinine 1.20, Estimated Creat Clear 82, Estimated GFR 63, Est GFR ( Amer) 76, Glucose 148 H, Calcium 9.4, Magnesium 2.3, Total Bilirubin 0.8, AST 26, ALT 22, Alkaline Phosphatase 121, Troponin I 0.05 H, NT-Pro-B Natriuret Pep 45.2, Total Protein 8.0, Albumin 4.6, Globulin 3.4 H, Albumin/Globulin Ratio 1.4, Lipase 250, HCV Ab LAMINE w/Rflx PCR Qn Negative 07/15/25 17:45: Troponin I 0.05 H 07/15/25 21:04: POC Glucose 271 H 07/15/25 21:18: Troponin I 0.04 H I & O for Last 24 hours: Intake & Output 07/12/25 07/13/25 07/14/25 07/15/25 23:59 23:59 23:59 23:59 Weight 85.593 kg *Routine HEENT Exam Head: Present normocephalic, atraumatic and cushingoid faces Eye: Present EOMI, PERRL and normal accommodation ENT: Present mucous membranes moist *Routine Neck Exam Neck: Present supple and full ROM *Routine Respiratory Exam Respiratory: Present normal respiratory effort *Routine Cardiovascular Exam Cardiovascular: Present RRR, Normal S1 and Normal S2 *Routine Abdominal Exam Abdominal: Present soft and normoactive bowel sounds *Routine Rectal Exam Rectal:: deferred *Routine Genitalia Exam Genitalia:: deferred *Routine Extremities Exam Extremities: Present full ROM, pulses intact and normal capillary refill Routine Back/Spine/Pelvis Exam Back/Spine: Present full ROM *Routine Skin Exam Skin: Present intact *Routine Neurological Exam Neurological: Present alert, oriented X3 and CN II-XII intact Routine Psychiatric Exam Psychiatric: Present normal affect and normal thought process Assessment and Plan *Assessment and plan (1) Pre-syncope: Status: Acute Category: Medical Code(s): R55 - Syncope and collapse (2) Elevated troponin: Status: Acute Category: Medical Code(s): R79.89 - Other specified abnormal findings of blood chemistry (3) Episodic lightheadedness: Status: Acute Category: Medical Code(s): R42 - Dizziness and giddiness (4) Hypokalemia: Status: Acute Category: Medical Code(s): E87.6 - Hypokalemia (5) Diabetes mellitus: Status: Acute Qualifiers: Diabetes mellitus complication status: with other specified complication Diabetes mellitus senior living insulin use: unspecified senior living insulin use status Diabetes mellitus type: type 2 Qualified Code(s): E11.69 - Type 2 diabetes mellitus with other specified complication Category: Medical Code(s): E11.9 - Type 2 diabetes mellitus without complications (6) Hypertension: Status: Acute Qualifiers: Hypertension type: unspecified Qualified Code(s): I10 - Essential (primary) hypertension Category: Medical Code(s): I10 - Essential (primary) hypertension (7) HLD (hyperlipidemia): Status: Acute Category: Medical Code(s): E78.5 - Hyperlipidemia, unspecified Plan Assessment/plan: This patient was discussed with the emergency department provider in agreement with hospital admission. Patient is a 54-year-old male who presented with a presyncopal episode that occurred earlier today and noted a similar episode approximately a week ago. Recently placed on Ozempic at a very small dosage but due to initial syncopal episode medication was discontinued. Patient followed up to the ED due to recurrent episode. CT head, CTA head and neck obtained without any acute finding. Troponin level with mild elevation 0.05?0.04. Patient denies chest pain or shortness of breath. Reports ongoing fatigue symptoms since episode, also present with the first syncopal episode. Cardiac continuous monitoring. ED provider discussed case with cardiology team Dr. Subramanian who agreed with admission for further cardiac/NSTEMI workup. 1. Pre-syncope: Presented with symptoms of presyncope, reported prior recent episodes similar in nature. Denies losing consciousness. Described episode with sensation of feeling hypoglycemic. Although reported when blood glucose was checked during this episode it was WNL. Reports first episode occurred after restarting Ozempic at a very low dose. After initial presyncopal episode Ozempic was discontinued. Patient states previously on Ozempic but ultimately was taken off due to dizziness and blurred vision. It was suspected his initial syncopal episode was caused by Ozempic but now that medication has been discontinued theres concern d/t continued symptoms. Patient denies any head injury with the fall. Imaging workup to rule out stroke obtained-> CT head and CTA head and neck reviewed and are without any acute finding. Orthostatic vitals requested, continuous cardiac monitoring. As noted below elevated troponin level. ED provider discussed with cardiology with plan of continued cardiac/NSTEMI workup. Fall precautions, up with assist. 2. NSTEMI: Elevated troponin. Initial troponin 0.05, repeat 0.05 and 0.04. Patient without chest pain or shortness of breath. ED provider discussed case with cardiology Dr. Subramanian, who reviewed patient's EKG as well as prior EKGs in 2019 recommended admission for further cardiac workup and NSTEMI. Echo US 06/2025 showing normal biventricular systolic function. Marked increase in left ventricular wall thickness. IVSd is 1.4 cm. Mild RV dilation. Mild biatrial dilation. Mild MR. Continuous cardiac monitoring. Cardiology consult for further evaluation and input appreciated. 3. Type 2 diabetes mellitus: Glucose 148 per ED workup-insulin sliding scale with Accu-Cheks ACHS. 4. Hypokalemia: Potassium 2.8-> received 80 meq potassium chloride per ED. Continue to monitor, replace per protocol. Magnesium level requested, replete per protocol-trend with morning labs. 5. Hypertension/hyperlipidemia: Normotensive on arrival-> 134/83. Resume home antihypertensive medication therapy. Continue to monitor vitals closely. Full code Diabetic diet DVT prophylaxis-subcu heparin
[2025-07-16] VITALS: PULSE 60
--- NOTE | 2025-07-16 03:48 | PC.NURSE ---
Pt is A&OX4 and has tolerated room air. He has denied any chest pain or SOA. He has also denied and dizziness since arriving to the floor. He has ambulated room independently. Family member has remained at bedside. No complaints at this time, call light within reach.
[2025-07-16 04:00] VITALS: BP 143/86; PULSE 64; PULSE 70; RESP 16; TEMP 36.4; O2SAT 97; BMI 27.9
[2025-07-16 06:12] LABS: POC Glucose,Bedside 107 gm/dL (70-110)
[2025-07-16 06:42] LABS: Hematocrit 41.0 % (42.0-52.0); Hemoglobin 14.3 g/dL (14.1-18.0); Immature Granulocytes % 0.2 %; Mean Corpuscular HGB Conc 34.9 g/dL (31.8-35.4); Mean Corpuscular Hemoglobin 30.4 pg (27.0-31.2); Mean Corpuscular Volume 87.2 fl (80-94); Nucleated Red Blood Cells % 0 %; Platelet Count 152 K/mm3 (142-424); Red Blood Count 4.70 M/mm3 (4.60-6.20); Red Cell Distribution Width-SD 38.0 fL; White Blood Count 5.3 K/mm3 (4.8-10.8)
[2025-07-16 07:19] LABS: Albumin Level 3.9 g/dl (3.5-5.0); Chloride 103 mmol/L (98-107); Potassium 3.3 mmoL/L (3.5-5.1); Sodium 139 mmol/L (136-145)
[2025-07-16 07:22] LABS: Alanine Aminotransferase 16 U/L (12-78); Albumin/Globulin Ratio 1.3 (1.1-1.8); Alkaline Phosphatase 104 U/L (38-126); Anion Gap 5.3 mEq/L (5-15); Aspartate Amino Transferase 26 U/L (17-59); Bilirubin,Total 0.4 mg/dl (0.2-1.3); Blood Urea Nitrogen 28 mg/dl (9-20); Carbon Dioxide 34 mmol/L (22.0-30.0); Creatinine Clearance Estimated 100 mL/min (50-200); Creatinine,Serum 1.00 mg/dl (0.66-1.25); Estimated Glomerular Filt Rate 77 ml/min (>60); GFR (African American) 94 ML/MIN (>60); Globulin 3.0 g/dL (1.3-3.2); Total Protein,Serum 6.9 g/dl (6.3-8.2)
[2025-07-16 07:23] LABS: Calcium 8.4 mg/dl (8.4-10.2); Glucose 102 mg/dl (74-100); Magnesium 2.5 mg/dl (1.6-2.3)
[2025-07-16 08:00] VITALS: BP 145/77; PULSE 80; RESP 18; TEMP 36.7; O2SAT 98
--- NOTE | 2025-07-16 08:02 | P.PN_ITS ---
Subjective *Date: 07/16/25 *Time: 08:58 Interval history: Patient states he is feeling better. He has no new vision issues. He has been up to the bathroom. He denies dizziness. He also denies chest pain and shortness of breath. He was able to sleep some last night. His eaten breakfast this morning without difficulties. Laboratory data this morning a hemoglobin of 14.3 and hematocrit of 41 with a white blood cell count of 5300. Blood chemistries with a sodium of 139 potassium of 3.3 BUN is 28 creatinine is 1 last troponin I was 0.04 Exam Data for Last 24 hours Vital signs and Labs for Last 24 Hours: Temp Pulse Resp BP Pulse Ox O2 Del Method 97.6 F 64 16 143/86 H 97 Room Air 07/16/25 04:00 07/16/25 04:00 07/16/25 04:00 07/16/25 04:00 07/16/25 04:00 07/16/25 06:31 Laboratory Results - last 24 hr 07/15/25 14:46: WBC 7.6, RBC 5.18, Hgb 15.8, Hct 44.9, MCV 86.7, MCH 30.5, MCHC 35.2, RDW 11.8, Plt Count 169, MPV 10.2, Neut % (Auto) 68.2, Lymph % (Auto) 18.9, Moffat % (Auto) 10.9 H, Eos % (Auto) 1.1, Baso % (Auto) 0.5, Neut # (Auto) 5.2, Lymph # (Auto) 1.4, Moffat # (Auto) 0.8, Eos # (Auto) 0.1, Baso # (Auto) 0.0, PT 10.8, INR 0.97, Sodium 140, Potassium 2.8 L*, Chloride 96 L, Carbon Dioxide 36 H, Anion Gap 10.8, BUN 32 H, Creatinine 1.20, Estimated Creat Clear 82, Estimated GFR 63, Est GFR ( Amer) 76, Glucose 148 H, Calcium 9.4, Magnesium 2.3, Total Bilirubin 0.8, AST 26, ALT 22, Alkaline Phosphatase 121, Troponin I 0.05 H, NT-Pro-B Natriuret Pep 45.2, Total Protein 8.0, Albumin 4.6, Globulin 3.4 H, Albumin/Globulin Ratio 1.4, Lipase 250, HCV Ab LAMINE w/Rflx PCR Qn Negative, HIV Ag/Ab Combo Qual Negative 07/15/25 17:45: Troponin I 0.05 H 07/15/25 21:04: POC Glucose 271 H 07/15/25 21:18: Troponin I 0.04 H 07/16/25 06:04: POC Glucose 107 07/16/25 06:05: WBC 5.3 D, RBC 4.70, Hgb 14.3, Hct 41.0 L, MCV 87.2, MCH 30.4, MCHC 34.9, RDW 11.8, Plt Count 152, MPV 10.6 H, Neut % (Auto) 61.9, Lymph % (Auto) 23.2, Moffat % (Auto) 12.2 H, Eos % (Auto) 1.5, Baso % (Auto) 1.0, Neut # (Auto) 3.3, Lymph # (Auto) 1.2, Moffat # (Auto) 0.6, Eos # (Auto) 0.1, Baso # (Auto) 0.1, Sodium 139, Potassium 3.3 L, Chloride 103, Carbon Dioxide 34 H, Anion Gap 5.3, BUN 28 H, Creatinine 1.00, Estimated Creat Clear 100, Estimated GFR 77, Est GFR ( Amer) 94 D, Glucose 102 H D, Calcium 8.4, Magnesium 2.5 H, Total Bilirubin 0.4, AST 26, ALT 16 D, Alkaline Phosphatase 104, Total Protein 6.9, Albumin 3.9 D, Globulin 3.0, Albumin/Globulin Ratio 1.3 I & O for Last 24 hours: Intake & Output 07/13/25 07/14/25 07/15/25 07/16/25 11:59 11:59 11:59 11:59 Intake Total 200 / 200 Output Total 0 / 0 Balance 200 / 200 Weight 188 lb 11.204 oz Constitutional Constitutional: no acute distress Comments: Patient is completing his breakfast. is at bedside and stayed during the night. *Routine Respiratory Exam Respiratory: Present CTA bilaterally (Anteriorly and posteriorly) *Routine Cardiovascular Exam Cardiovascular: Present RRR *Routine Abdominal Exam Abdominal: Present soft and normoactive bowel sounds; Absent tenderness *Routine Extremities Exam Extremities: Absent edema or calf tenderness *Routine Neurological Exam Neurological: Present alert and oriented X3 Assessment and Plan *Assessment and plan (1) Pre-syncope: Status: Acute Category: Medical Code(s): R55 - Syncope and collapse (2) Elevated troponin: Status: Acute Category: Medical Code(s): R79.89 - Other specified abnormal findings of blood chemistry (3) Episodic lightheadedness: Status: Acute Category: Medical Code(s): R42 - Dizziness and giddiness (4) Hypokalemia: Status: Acute Category: Medical Code(s): E87.6 - Hypokalemia (5) Diabetes mellitus: Status: Acute Qualifiers: Diabetes mellitus complication status: with other specified complication Diabetes mellitus chcf insulin use: unspecified chcf insulin use status Diabetes mellitus type: type 2 Qualified Code(s): E11.69 - Type 2 diabetes mellitus with other specified complication Category: Medical Code(s): E11.9 - Type 2 diabetes mellitus without complications (6) Hypertension: Status: Acute Qualifiers: Hypertension type: unspecified Qualified Code(s): I10 - Essential (primary) hypertension Category: Medical Code(s): I10 - Essential (primary) hypertension (7) HLD (hyperlipidemia): Status: Acute Category: Medical Code(s): E78.5 - Hyperlipidemia, unspecified Plan Cardiology to follow today. Will add additional p.o. potassium for hypokalemia Dr. Lizarraga entry - Saw patient, agree with above note.
--- NOTE | 2025-07-16 08:26 | CA_ITS ---
APPROVED REPORT EXAM: Limited 2D Echocardiogram Icer Machine: Dianne Lynn RVT Ht: 5 ft 8 in Wt: 188lbs BSA: 1.99 BP: 143/86 mmHg Indications: NSTEMI,EF CHECK 2D Dimensions IVSd 1.13 cm M: 0.6-1.2 LVEF (Visual) 74.90 % PWd 1.17 cm M: 0.6 - 1.2 LVDd 4.57 cm M: 4.2 - 5.9 LVDs 2.58 cm M: 2.5 - 4.0 M-Mode Dimensions RVDd 1.33 cm (0.9-2.6) LA Diam 2.50 cm (1.9-4.0) LVDd 4.34 cm (3.5-5.7) IVSd 0.84 cm (0.6-1.1) PWd 1.33 cm (0.6-1.1) EDV (Teich) 84.90 mL Other Information Study Quality: Fair Conclusion This is a limited TTE to evaluate for LV systolic function. Limited windows were obtained. The left ventricle is normal in size. There is increased LV wall thickness. There is normal global LV systolic function. No regional wall motion abnormalities are noted. LVEF is 65%. Electronically signed by : Nakita Morocho MD 07/16/2025 12:25:05
[2025-07-16] MEDS: METOPROLOL SUCCINATE XL 50MG TABLET 50 MG PO (09:17)
[2025-07-16] MEDS: HEPARIN SODIUM 5,000 UNIT/ML VIAL 5000 UNIT SUBCUT ×2 (09:17→12:05)
[2025-07-16] MEDS: AMLODIPINE 10MG TABLET 10 MG PO (09:17)
[2025-07-16] MEDS: IRBESARTAN 300MG TABLET 300 MG PO (09:17)
[2025-07-16] MEDS: POTASSIUM CHLORIDE 20MEQ TAB 20 MEQ PO (09:17)
--- NOTE | 2025-07-16 09:47 | EXP.CARD.CON ---
History of Present Illness History of Present Illness Consult date: 07/16/25 Requesting physician: Compa Lizarraga Chief complaint: near syncope and dizziness History of present illness: Hospitalist note:Marcello Gonzalez is a 54-year-old male with past medical history significant for hypertension, type 2 diabetes mellitus, chronic back pain, gastritis. Presents to [facility] with complaints of dizziness/lightheadedness. Patient reports episode occurred earlier today with a similar prior episode that occurred a little over a week ago. Describes episodes similar when hypoglycemic. Reports blood glucose checked during episode and noted to be normal. Reports recent medication addition of Ozempic, which has since been discontinued. Previously placed on Ozempic prior to recently. States previoulsy medication was discontinued due complications that included blurry/double vision. Patient states this time he was placed on a low dose of Ozempic to avoid complications. Unfortunately after taking the first dose of he began to have dizziness/lightheadedness. Ozempic was discontinued again after initial episode. Reports episode reoccurred today and opted to follow-up to the ED. Patient reported feeling nauseous during episode but denies emesis. Denies blackout or full loss of consciousness during episode. Denies any head injury. Reports significant decrease in appetite since initial dose. During ED workup troponin levels were noted to be elevated. ED provider discussed case with cardiology team Dr. Subramanian who agreed with hospital admission for further cardiac/NSTEMI workup. Denies shortness of breath, chest pain, abdominal pain, urinary symptoms, speech or gait deficit. Initial ED workup included laboratory studies and imaging study. Significant laboratory findings included potassium 2.8, troponin 0.05. Imaging studies included CT head, CTA head and neck which I personally reviewed and were unremarkable for any acute findings. Upon assessment of patient at bedside he is without acute distress. Resting in bed comfortably. Hemodynamically stable. Cardiology note: Marcello Gonzalez is a 54-year-old white male with a past medical history of hypertension and type 2 diabetes mellitus who presented to emergency department with complaints of dizziness and lightheadedness with blurry vision. Patient reports has had intermittent episodes like this over the past 2 weeks. He recently restarted Ozempic due worsening A1c. Of note patient had previously been on Ozempic and had to stop it due to symptoms of blurry vision. Ozempic was restarted at a lower dose however patient has not been able to tolerate it and has since discontinued it. Patient denies any associated chest pain or shortness of breath. He reports a good functional capacity at baseline, he climbs stairs daily for work and lifts heavy boxes without symptoms of chest pain or shortness of breath. He denies history of smoking. He denies family history of coronary artery disease. Troponin 0.05 on admission trending down to 0.04. Head CT negative for intracranial abnormality. Neck CTA negative for significant stenosis or dissection. Head CTA negative for stenosis or large vessel occlusion. EKG on presentation showed sinus rhythm at a rate of 73 , negative for STEMI. Echo from 06/2025 showed normal biventricular systolic function with marked increase in left ventricular wall thickness of 1.4 cm. Mild RV dilation, mild biatrial dilation, mild MR. In the setting of marked increase in LV wall thickness further evaluation with cardiac MRI is suggested. This morning patient remains asymptomatic. A repeat limited echo is pending. [facility] Disclaimer: The information contained in this section may have been updated after the patient was seen, as this information can be updated by other users. Medical History (Updated 07/16/25 @ 09:58 by Marva Guerra APRN) Diabetes HLD (hyperlipidemia) Hypertension Surgical History Hx of appendectomy Social History Smoking Status: Never smoker alcohol intake: never substance use type: denies use current occupational status: employed Travel in the last 8 weeks?: None household members: spouse housing: house current occupation: factory employee caffeine: No Have you lived/traveled outside [place] in past 30 days?: No Contact w/someone who lives/traveled outside US past 30 days?: No Exposure to someone with infectious disease in past 14 days?: No Do you have a fever (greater than 100.4 F or 38 C)?: No Have you tested positive for COVID-19?: No Exposed to someone with COVID-19 in past 14 days?: No Do you have a sore throat?: No Do you have a cough?: No Do you have any weakness?: No Do you have any diarrhea?: No Are you experiencing any unusual bleeding?: No Do you have any muscle aches/pain?: No Do you have any abdominal pain?: No Are you experiencing loss of taste or smell?: No Review of Systems Review of Systems Review of systems:: pertinent systems reviewed and negative unless documented below ENT Ears, Nose, Mouth, and Throat: Reports dizziness *Cardiovascular Cardiovascular: Denies chest pain *Neurologic Neurologic: Reports as per HPI and Reports dizziness Exam Data for Last 24 hours Vital signs and Labs for Last 24 Hours: Temp Pulse Resp BP Pulse Ox O2 Del Method 98.0 F 80 18 145/77 H 98 Room Air 07/16/25 08:00 07/16/25 08:00 07/16/25 08:00 07/16/25 08:00 07/16/25 08:00 07/16/25 08:58 Laboratory Results - last 24 hr 07/15/25 14:46: WBC 7.6, RBC 5.18, Hgb 15.8, Hct 44.9, MCV 86.7, MCH 30.5, MCHC 35.2, RDW 11.8, Plt Count 169, MPV 10.2, Neut % (Auto) 68.2, Lymph % (Auto) 18.9, Spencer % (Auto) 10.9 H, Eos % (Auto) 1.1, Baso % (Auto) 0.5, Neut # (Auto) 5.2, Lymph # (Auto) 1.4, Spencer # (Auto) 0.8, Eos # (Auto) 0.1, Baso # (Auto) 0.0, PT 10.8, INR 0.97, Sodium 140, Potassium 2.8 L*, Chloride 96 L, Carbon Dioxide 36 H, Anion Gap 10.8, BUN 32 H, Creatinine 1.20, Estimated Creat Clear 82, Estimated GFR 63, Est GFR ( Amer) 76, Glucose 148 H, Calcium 9.4, Magnesium 2.3, Total Bilirubin 0.8, AST 26, ALT 22, Alkaline Phosphatase 121, Troponin I 0.05 H, NT-Pro-B Natriuret Pep 45.2, Total Protein 8.0, Albumin 4.6, Globulin 3.4 H, Albumin/Globulin Ratio 1.4, Lipase 250, HCV Ab LAMINE w/Rflx PCR Qn Negative, HIV Ag/Ab Combo Qual Negative 07/15/25 17:45: Troponin I 0.05 H 07/15/25 21:04: POC Glucose 271 H 07/15/25 21:18: Troponin I 0.04 H 07/16/25 06:04: POC Glucose 107 07/16/25 06:05: WBC 5.3 D, RBC 4.70, Hgb 14.3, Hct 41.0 L, MCV 87.2, MCH 30.4, MCHC 34.9, RDW 11.8, Plt Count 152, MPV 10.6 H, Neut % (Auto) 61.9, Lymph % (Auto) 23.2, Spencer % (Auto) 12.2 H, Eos % (Auto) 1.5, Baso % (Auto) 1.0, Neut # (Auto) 3.3, Lymph # (Auto) 1.2, Spencer # (Auto) 0.6, Eos # (Auto) 0.1, Baso # (Auto) 0.1, Sodium 139, Potassium 3.3 L, Chloride 103, Carbon Dioxide 34 H, Anion Gap 5.3, BUN 28 H, Creatinine 1.00, Estimated Creat Clear 100, Estimated GFR 77, Est GFR ( Amer) 94 D, Glucose 102 H D, Calcium 8.4, Magnesium 2.5 H, Total Bilirubin 0.4, AST 26, ALT 16 D, Alkaline Phosphatase 104, Total Protein 6.9, Albumin 3.9 D, Globulin 3.0, Albumin/Globulin Ratio 1.3 I & O for Last 24 hours: Intake & Output 07/13/25 07/14/25 07/15/25 07/16/25 23:59 23:59 23:59 23:59 Intake Total 740 / 740 Output Total 0 / 0 Balance 0 / 200 740 / 740 Weight 188 lb 11.2 oz 188 lb 11.204 oz Constitutional Constitutional: no acute distress *Routine Respiratory Exam Respiratory: Present CTA bilaterally and symmetric chest movement *Routine Cardiovascular Exam Cardiovascular: Present RRR, Normal S1 and Normal S2 *Routine Abdominal Exam Abdominal: Present soft and normoactive bowel sounds; Absent tenderness *Routine Extremities Exam Extremities: Present full ROM and normal capillary refill; Absent edema *Routine Skin Exam Skin: Present intact, dry and warm Detailed Neck Exam: Thyroids Thyroid: Absent bruit Meds Home Medications and Allergies Home Medications ?Medication ?Instructions ?Recorded ?Confirmed ?Type amlodipine 10 mg tablet 10 mg PO DAILY 07/15/25 07/15/25 History chlorthalidone 25 mg tablet 12.5 mg PO DAILY 07/15/25 07/15/25 History dapagliflozin propanediol 10 mg 10 mg PO DAILY 07/15/25 07/15/25 History tablet (Farxiga) insulin degludec 200 unit/mL (3 34 unit SQ DAILY 07/15/25 07/15/25 History mL) subcutaneous pen (Tresiba FlexTouch U-200 insulin) insulin lispro 100 unit/mL 6 unit SQ TID 07/15/25 07/15/25 History subcutaneous pen irbesartan 300 mg tablet 300 mg PO DAILY 07/15/25 07/15/25 History metoprolol succinate 50 mg 50 mg PO DAILY 07/15/25 07/15/25 History tablet,extended release 24 hr New Prescriptions to Start Prescriptions: Allergies Allergy/AdvReac Type Severity Reaction Status Date / Time hydrochlorothiazide Allergy Cough Verified 07/15/25 20:49 semaglutide (From Ozempic) AdvReac Dizziness Verified 07/15/25 20:49 Assessment and Plan *Assessment and plan (1) Hypertension: Status: Acute Qualifiers: Hypertension type: unspecified Qualified Code(s): I10 - Essential (primary) hypertension Category: Medical Code(s): I10 - Essential (primary) hypertension (2) Elevated troponin: Status: Acute Category: Medical Code(s): R79.89 - Other specified abnormal findings of blood chemistry (3) Diabetes mellitus: Status: Acute Qualifiers: Diabetes mellitus complication status: with other specified complication Diabetes mellitus retirement insulin 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 Head CT, neck CTA, head CTA all negative for acute process Echo 06/2025 shows a normal EF, and marked increase in left ventricular wall thickness 1.4 cm. In the setting of increased LV wall thickness further evaluation with cardiac MRI is recommended. Repeat limited echo shows a normal EF. DC home in 2 week event monitor. Hypertension Controlled continue home medications including irbesartan, metoprolol, chlorthalidone and amlodipine Diabetes mellitus Defer to primary service CV summary 07/16/2025: Patient continues to deny any episodes of chest pain or shortness of breath. Dizziness has resolved. Recommend holding Ozempic and having patient follow-up in cardiology clinic on for reevaluation. Please dc home in event monitor. Consider outpatient ischemic evaluation. Needs Cardiac MRI on outpatient basis for LV wall thickness.
[2025-07-16 11:58] VITALS: BP 144/84; PULSE 79; RESP 16; TEMP 36.8; O2SAT 97
[2025-07-16] MEDS: humaLOG 100 UNITS/ML 10ML VIAL (SSI) SUBCUT (12:07)
[2025-07-16 12:10] LABS: POC Glucose,Bedside 177 gm/dL (70-110)
[2025-07-16 12:15] VITALS: PULSE 80
--- NOTE | 2025-07-16 14:56 | PC.NURSE ---
RESP CARE NOTE: Cardiac event monitor placed on patient, Instruction performed and pt states understanding.
--- NOTE | 2025-07-17 10:08 | SW/DCPLANNER ---
Spoke with patient on the phone. Patient stated that he is doing well. Patient stated that he is aware of his upcoming appointment. Patient stated that he was able to get his new medicine picked up from the pharmacy. Patient state he has no concerns or questions at this time. Blake Mcelroy
--- NOTE | 2025-07-28 00:35 | EXP.DC.SUM ---
General Admission date:: 07/15/25 Discharge date: 07/16/25 HPI HPI HPI: Marcello Gonzalez is a 54-year-old male with past medical history significant for hypertension, type 2 diabetes mellitus, chronic back pain, gastritis. Presents to [facility] with complaints of dizziness/lightheadedness. Patient reports episode occurred earlier today with a similar prior episode that occurred a little over a week ago. Describes episodes similar when hypoglycemic. Reports blood glucose checked during episode and noted to be normal. Reports recent medication addition of Ozempic, which has since been discontinued. Previously placed on Ozempic prior to recently. States previoulsy medication was discontinued due complications that included blurry/double vision. Patient states this time he was placed on a low dose of Ozempic to avoid complications. Unfortunately after taking the first dose of he began to have dizziness/lightheadedness. Ozempic was discontinued again after initial episode. Reports episode reoccurred today and opted to follow-up to the ED. Patient reported feeling nauseous during episode but denies emesis. Denies blackout or full loss of consciousness during episode. Denies any head injury. Reports significant decrease in appetite since initial dose. During ED workup troponin levels were noted to be elevated. ED provider discussed case with cardiology team Dr. Subramanian who agreed with hospital admission for further cardiac/NSTEMI workup. Denies shortness of breath, chest pain, abdominal pain, urinary symptoms, speech or gait deficit. Initial ED workup included laboratory studies and imaging study. Significant laboratory findings included potassium 2.8, troponin 0.05. Imaging studies included CT head, CTA head and neck which I personally reviewed and were unremarkable for any acute findings. Upon assessment of patient at bedside he is without acute distress. Resting in bed comfortably. Hemodynamically stable. Hospital Course Hospital Course Hospital Course: It was suspected the patient's initial syncopal episode was caused by Ozempic, but that medication had been discontinued and he had continued symptoms. His head CT and CTA showed nothing acute. He was placed on continuous cardiac monitoring. His troponin was mildly elevated. The case was discussed with Dr. Subramanian and he recommended admission for further cardiac workup and NSTEMI. By 07/16/2025, he was feeling better and had been up to the bathroom and denied any dizziness. He also denied chest pain or shortness of breath. Potassium was added for hypokalemia. He was seen by cardiology and they wanted to discharge the patient with a Holter/event recorder and follow-up with him on an outpatient basis in 2 days. They will schedule an ischemic workup at that point. Exam Data for Last 24 hours Vital signs and Labs for Last 24 Hours: Temp Pulse Resp BP Pulse Ox O2 Del Method 98.3 F 80 16 144/84 H 97 Room Air 07/16/25 11:58 07/16/25 12:15 07/16/25 11:58 07/16/25 11:58 07/16/25 11:58 07/16/25 12:55 Narrative: *Routine HEENT Exam Head: Present normocephalic, atraumatic and cushingoid faces Eye: Present EOMI, PERRL and normal accommodation ENT: Present mucous membranes moist *Routine Neck Exam Neck: Present supple and full ROM *Routine Respiratory Exam Respiratory: Present normal respiratory effort *Routine Cardiovascular Exam Cardiovascular: Present RRR, Normal S1 and Normal S2 *Routine Abdominal Exam Abdominal: Present soft and normoactive bowel sounds *Routine Rectal Exam Rectal:: deferred *Routine Genitalia Exam Genitalia:: deferred *Routine Extremities Exam Extremities: Present full ROM, pulses intact and normal capillary refill Routine Back/Spine/Pelvis Exam Back/Spine: Present full ROM *Routine Skin Exam Skin: Present intact *Routine Neurological Exam Neurological: Present alert, oriented X3 and CN II-XII intact Routine Psychiatric Exam Psychiatric: Present normal affect and normal thought process DS: Diagnosis Discharge Diagnosis (1) Hypertension: Status: Acute Code(s): I10 - Essential (primary) hypertension Qualifiers: Hypertension type: unspecified Qualified Code(s): I10 - Essential (primary) hypertension (2) Elevated troponin: Status: Acute Code(s): R79.89 - Other specified abnormal findings of blood chemistry (3) Diabetes mellitus: Status: Acute Code(s): E11.9 - Type 2 diabetes mellitus without complications Qualifiers: Diabetes mellitus complication status: with other specified complication 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 Diabetes mellitus type: type 2 Qualified Code(s): E11.69 - Type 2 diabetes mellitus with other specified complication (4) Dizziness: Status: Acute Code(s): R42 - Dizziness and giddiness Meds Home Medications and Allergies Home Medications ?Medication ?Instructions ?Recorded ?Confirmed ?Type amlodipine 10 mg tablet 10 mg PO DAILY 07/15/25 07/18/25 History chlorthalidone 25 mg tablet 12.5 mg PO DAILY 07/15/25 07/18/25 History dapagliflozin propanediol 10 mg 10 mg PO DAILY 07/15/25 07/18/25 History tablet (Farxiga) insulin degludec 200 unit/mL (3 34 unit SQ DAILY 07/15/25 07/18/25 History mL) subcutaneous pen (Tresiba FlexTouch U-200 insulin) insulin lispro 100 unit/mL 6 unit SQ TID 07/15/25 07/18/25 History subcutaneous pen irbesartan 300 mg tablet 300 mg PO DAILY 07/15/25 07/18/25 History metoprolol succinate 50 mg 50 mg PO DAILY 07/15/25 07/18/25 History tablet,extended release 24 hr potassium chloride 10 mEq 10 meq PO DAILY #30 caps 07/16/25 07/18/25 Rx capsule,extended release New Prescriptions to Start Prescriptions: potassium chloride Compa Lizarraga Allergies Allergy/AdvReac Type Severity Reaction Status Date / Time hydrochlorothiazide Allergy Cough Verified 07/18/25 10:46 semaglutide (From Ozempic) AdvReac Dizziness Verified 07/18/25 10:46 Discharge Plan Disposition Patient Disposition: Home, Self-Care Condition: Fair Follow up Plan Follow up with: Compa Lizarraga MD [Primary Care Provider, Medical] - 07/29/25 10:30 am Compa Guerra PA [Physician Day Habilitation Supervisor, Cardiology] - 07/18/25 10:30 am Prescriptions/Medication Reconciliation: New potassium chloride 10 mEq capsule, extended release 10 meq PO DAILY Qty: 30 0RF Continued metoprolol succinate 50 mg tablet extended release 24 hr 50 mg PO DAILY chlorthalidone 25 mg tablet 12.5 mg PO DAILY amlodipine 10 mg tablet 10 mg PO DAILY irbesartan 300 mg tablet 300 mg PO DAILY insulin lispro 100 unit/mL insulin pen 6 unit SQ TID insulin degludec [Tresiba FlexTouch U-200] 200 unit/mL (3 mL) insulin pen 34 unit SQ DAILY dapagliflozin propanediol [Farxiga] 10 mg tablet 10 mg PO DAILY Problem Reconciliation Problems Reviewed?: Yes Patient Discharge Instructions ACTIVITY: Limited activity DIET: advance to your usual diet Patient Instructions: DI for Atypical Chest Pain Print Language: Panamanian Providers Primary Care Provider: Compa Lizarraga Admit Provider: Rishi Pettit Attending Provider: Compa Lizarraga
== END 2025-07-16 15:02 | disposition home or self-care (01) ==
LOC: ER 20:08 → 2ND 07-16 00:47
PROVIDERS: Physician Assistant; Admitting Provider Internal Medicine Adolescent Medicine; Emergency Provider Student in an Organized Health Care Education/Training Program; PCP Family Medicine; Visit Provider Family Medicine
DX: R55 Syncope and collapse (principal); I10 Essential (primary) hypertension; R79.89 Other specified abnormal findings of blood chemistry; E78.5 Hyperlipidemia, unspecified; Z88.8 Allergy status to other drugs, medicaments and biological substances; Z79.4 Long term (current) use of insulin; Z79.899 Other long term (current) drug therapy; R42 Dizziness and giddiness; E11.69 Type 2 diabetes mellitus with other specified complication; I25.2 Old myocardial infarction
CPT/HCPCS: 36415; 70450; 70496; 70498; 80053; 82962; 83690; 83735; 83880; 84484; 85025; 85610; 86803; 87389; 93005; 93270; 93308; 96374; 96375; 99285; G0378; J0780; J1200; J1644; Q9967

== ENCOUNTER 2025-07-30 06:21 | Outpatient (CLI) | payer BC, SELFPAY ==
--- OUTSIDE RECORDS SUMMARY | 2024-08-07 10:00 | XMS_ITS ---
Author Organization Margie Address [facility] [address] [facility] [address] [place] [phone] Care Team Providers Care Parking Lot Supervisor Name Role Phone Compa Lizarraga Unavailable [phone] Davi Pinto Unavailable [phone] Allergies Allergen (clinical drug ingredient) Drug/Non Drug Allergy documented on EMR Reaction Allergy Type Onset Date Status metformin metFORMIN HCl diarrhea Drug Allergy Act aiden hydrochlorothiazide hydroCHLOROthiazide Unknown Drug Aller gy Active REASON FOR VISIT is not feeling better Encounters Encounter Location Date Provider Diagnosis [facility] [address] [facility] [address] [facility] [address] [place] [phone] 08/07/2024 Davi Pinto Plan Of Treatment Next Appt Details Provider Name:Compa Rascon ry, 08/28/2025 09:15:00 AM, [address] [facility] [address] [facility], [address], [place], [phone], Progress Notes * Marcello TEEDOB: [birth year] (54 yo M)Acc No.[id number]:08/07/2024 Progress Notes Patient: Marcello VERGARA Provider: Davi Pinto M.D. :1970 A ge:53 Y S ex:Male Date:08/07/2024 Address: [id number] Subjective: * Chief Complaints: * 1 . [...] Electronic signature of Davi Pinto MD on 07/30/2025 at 06:26 AM EST Sign off status: Pending * Provider: Davi Pinto M.D. Date: 0 08/07/2024 Generated for Ulices soria/Oniel/Darlin on: 06:26 AM EST
--- OUTSIDE RECORDS SUMMARY | 2024-08-09 10:30 | XMS_ITS ---
Author Organization [facility] [address] [facility] [address] [facility] [address] [place] [phone] Care Team Providers Care Temporary Staff Accountant Name Role Phone Compa Lizarraga Unavailable [phone] Charla Starkey Unavailable [phone] Allergies Allergen (clinical drug ingredient) Drug/Non Drug [...] 08/09/2024 Encounters Encounter Location Date Provider Diagnosis [facility] [address] [place] [phone] 08/09/2024 Charla Starkey Acute URI J06.9 ; [address], [place], [phone], Progress Notes * Marcello TEEDOB: [birth year] (54 yo M)Acc No.[id number]:08/09/2024 Patient: Marcello VERGARA Provider: NICHO Chiang :1970 A ge:53 Y S ex:Male Date:08/09/2024 Address:[address] [place] [address] [place] [id number] Subjective: * Chief Complaints: * 1 . [...] Procedure Codes: 3 6416 CAPILLARY BLOOD DRAW, 46243 CBC WITH AUTO DIFF, 41990 Flu Test- Nasal Swab, Modifiers: QW , 36476 COVID TEST IN HOUSE, Modifiers: QW * Follow Up: p rn * Images: Billing Information: * Visit Code: 85700 Office Visit, Est Pt., Level 3. * Procedure Codes: 83293 CAPILLARY BLOOD DRAW. 21017 CBC WITH AUTO DIFF. 11345 Flu Test- Nasal Swab. Modifiers: QW 12092 COVID TEST IN HOUSE. Modifiers: QW * Electronic signature of NICHO Glez on 07/30/2025 at 06:25 AM EST Sign off status: Pending * Provider: NICHO Chiang Date: 0 08/09/2024 Generated for Ulices soria/Oniel/eTransmyehuda on: 06:25 AM EST History and Physical Notes * HPI [...]
--- OUTSIDE RECORDS SUMMARY | 2024-08-17 06:15 | XMS_ITS ---
[facility] Address [address] [facility] [address] [place] [id number] Care Team Providers Care Process Specialist Name Role Phone Compa Lizarraga Unavailable [phone] Allergies Allergen (clinical drug ingredient) Drug/Non Drug Allergy documented on EMR Reaction Allergy Type Onset Date Status metformin metFORMIN HCl diarrhea Drug Allergy Act aiden hydrochlorothiazide hydroCHLOROthiazide Unknown Drug Aller gy Active Results Component Value Reference Range Notes Glucose (In-House) Reviewed date:08/17/2024 12:25:35 PM Interpretation:260 Performing Lab: Notes/Report: 260 blood glucose 260 74 - 106 mg/dL CBC Venipuncture (in house) Reviewed date:08/17/2024 12:27:21 PM Interpretation: Performing Lab: Notes/Report: wbc 5.4 3.5 - 10 lymph 22.6 15 - 50 mid 6.3 2 - 15 gran 71.1 35 - 80 rbc 4.94 3.5 - 5.5 hgb 15.0 11.5 - 16.5 hct 43.7 35 - 55 mcv 88.2 75 - 100 mch 30.3 25 - 35 mchc 34.3 31 - 38 platlet 136 100 - 400 Glycohemoglobin A1c (in hous e) Reviewed date:08/17/2024 12:26:11 PM Interpretation:9.1% Performing Lab: Notes/Report: 9.1% glycohemoglobin 9.1% 5 - 6.5 % P-Comprehensive Metabolic Pa ezequiel ([facility]) Reviewed date:08/20/2024 08:47:27 AM Interpretation:gluc 230 Performing Lab: Notes/Report: Test performed by [facility] [place] , [address], [place] [address] Geoff Read MD, Test Preparation Tutor CLIA: [id number] Sodium 141 135-145 mmol/L Potassium 3.9 3.5-5.3 mmol/L Chloride 102 97-108 mmol/L CO2 28 22-32 mmol/L Glucose 230 65-99 mg/dL BUN 11 6-20 mg/dL Creatinine 0.78 0.70-1.30 mg/dL Calcium 8.9 8.6-10.4 mg/dL eGFR by Creatinine 105 >59 mL/min/1.73m2 Protein 6.7 6.0-8.3 g/dL Albumin 4.3 3.5-5.3 g/dL Alkaline Phosphatase 113 40-129 IU/L ALT (SGPT) 15 <5-55 IU/L AST (SGOT) 13 <5-46 IU/L Bilirubin, Total 0.9 <0.2-1.2 mg/dL A/G Ratio 1.8 1.1-2.5 P-Lipid Panel Reviewed date:08/20/2024 08:47:27 AM Interpretation:trigs 158, hdl 32, chol/hdl 5.31, non-hdl 138, ldl/hdl 3.3 Performing Lab: Notes/Report: Test performed by [facility] [address] , [address], [place] [address] Geoff Read MD, Test Preparation Tutor CLIA: [id number] Cholesterol 170 <200 mg/dL Triglycerides 158 <150 mg/dL HDL Cholesterol 32 >39 mg/dL Cholesterol / HDL Ratio 5.31 0.00-4.99 Ratio Non-HDL Cholesterol 138 <130 mg/dL LDL Cholesterol (Calculation) 106 <130 mg/dL LDL Cholesterol Levels* Less than 100 mg/dL Optimal 100 to 129 mg/dL Near Optimal/ Above Optimal 130 to 159 mg/dL Borderline High 160 to 189 mg/dL High 190 mg/dL and above Very High * Categories as recommended by the 2004 ATPIII guidelines LDL/HDL Ratio 3.3 <3.3 Ratio LDL Cholesterol Patient History Test Date: 08/10/2022 LDL Results: 42 Units: mg/dL % Change: -4% Test Date: 05/14/2024 LDL Results: 133 Units: mg/dL % Change: +216% Test Date: 08/17/2024 LDL Results: 106 Units: mg/dL % Change: -20% REASON FOR VISIT 2.5 Month Follow Up Medications Medication SIG (Take, Route, Frequency, Duration) Notes Start Date End Date Status Farxiga 10 MG 1 tablet Orally Once a day Active amLODIPine Besylate 10 MG 1 tablet Orall y Once a day; Duration: 90 days 08/17/2024 Active Irbesartan 300 MG 1 tablet Orally Once a day 05/14 Active Ozempic (1 MG/DOSE) 4 MG/3ML 1 mg Subcutaneous once weekly 08/17/2024 Active Vital Signs Weight 179.2 lbs 08/17/2024 Blood pressure systolic 160 mm Hg 08/17/19 25 Blood pressure diastolic 110 mm Hg 025 Heart Rate 85 /min 08/17/2024 Height 69 in 08/17/2024 BMI 26.46 kg/m2 08/17/2024 Encounters Encounter Location Date Provider Diagnosis [facility] [address] [facility] [address] [facility] [address] [place] [id number] 08/17/2024 Compa Lizarraga Cough, unspecified t ype R05.9 ; Type 2 diabetes mellitus without complication, without long-term current use of insulin E11.9 ; Essential hypertension I10 and Pure hypercholesterolemia E78.00 Assessments Encounter Date Diagnosis (ICD Code) Assessment Notes Treatment Notes Treatment Clinical Notes Section Notes 08/17/2024 Cough, unspecified t ype (ICD-10 - R05.9) 08/17/2024 Type 2 diabetes margot itus without complication, without long-term current use of insulin (ICD-10 - E11.9) 08/17/2024 Essential hypertensi on (ICD-10 - I10) 08/17/2024 Pure hypercholesterolemia (ICD-10 - E78.00) Plan Of Treatment Medication Medication Name Sig Start Date Stop Date Notes Farxiga 10 MG 1 tablet Orally Once a day 05/14/2024 amLODIPine Besylate 10 MG 1 tablet Orall y Once a day; Duration: 90 days 08/17/2024 Irbesartan 300 MG 1 tablet Orally Once a day 05/14/2024 Ozempic (0.25 or 0.5 MG/DOSE) 2 MG/3ML 0.5 mg Subcutaneous once weekly 05/14/2024 Ozempic (1 MG/DOSE) 4 MG/3ML 1 mg Subcutaneous once weekly 08/17/2024 amLODIPine Besylate 5 MG 1 tablet Orally Once a day 2023 Next Appt Details Follow Up: 3 Months, Reason: Provider Name:Compa Rascon ry, 08/28/2025 09:15:00 AM, [address] [facility] [address] [facility], [address], [place], [phone], Progress Notes * Marcello TEEDOB: [birth year] (54 yo M)Acc No.[id number]:08/17/2024 Progress Notes Patient: Marcello VERGARA Provider: Aishwarya Lizarraga M.D. DOB:1970 A ge:53 Y S ex:Male Date:08/17/2024 Address:[address] [place] [address] VICENTE HICKMAN [id number] Subjective: * Chief Complaints: * 1 . 2.5 Month Follow Up. * HPI: C ardiology: 53 year old male presents with c/o Blood Pressure Elevated P t presents today for a 2.5 month follow up on hypertension. Pts BP is currently elevated and he sts that his vision is blurry. E NT/respiratory: c/o ear pain P t sts that he finished abx for an ear infection but sts that his ears are still bothering him and sts that he still feels like he has a head cold and has had this cold for a month. E ndocrinology: Recent Blood Sugars P t sts that he is due for an A1c. * ROS: D ERMATOLOGY: no R anna. [...] 0.5 mg Subcutaneous once weekly , Discontinued Cefdinir 300 MG Capsule 1 cap(s) Orally Two times a day , Medication List reviewed and reconciled with the patient * Allergies: h ydroCHLOROthiazide: Side Effects, metFORMIN HCl: diarrhea - Side Effects. Objective: * Vitals: W t:179.2, Temp:98.6, BP:160/110, HR:85, Nurse:GLENYS, Ht: 69, Repeat BP:150/94, BMI:26.46. * Examination: E NT/Respiratory: General Appearance: N AD. E yes: P ERRLA, sclera clear. O ral cavity : m inimal erythema without exudate on pharynx. N swapnil : n o cervical lymphadenopathy. H eart : R RR, normal S1 S2. L ungs: c lear to auscultation bilaterally. Assessment: * Assessment: 1. C ough, unspecified type - R05.9 (Primary) 2 . T ype 2 diabetes mellitus without complication, without long-term current use of insulin - E11.9 3 . E ssential hypertension - I10 4 . P ure hypercholesterolemia - E78.00 ? Plan: * Treatment: Value Reference Range w bc 5.4 3.5 - 10 * l ymph 22.6 15 - 50 * m id 6.3 2 - 15 * g ran 71.1 35 - 80 * r bc 4.94 3.5 - 5.5 * h gb 15.0 11.5 - 16.5 * h ct 43.7 35 - 55 * m cv 88.2 75 - 100 * m ch 30.3 25 - 35 * m chc 34.3 31 - 38 * p latlet 136 100 - 400 * Franchesca Gallardo 08/17/2024 12:2 7:13 PM > results reviewed w/ pt in office 2.?Type 2 diabetes mellitus without complication, without long-term current use of insulin? Continue Farxiga Tablet, 10 MG, 1 tablet, Orally, Once a day;?Stop Ozempic (0.25 or 0.5 MG/DOSE) Solution Pen-injector, 2 MG/3ML, 0.5 mg, Subcutaneous, once weekly;?Start Ozempic (1 MG/DOSE) Solution Pen-injector, 4 MG/3ML, 1 mg, Subcutaneous, once weekly, 9 mL, Refills 1.?LAB: P-Comprehensive Metabolic Panel (CMP) (Collection Date & Time - 08/17/2024 10:59 AM)?gluc 230* Value Reference Range A /G Ratio 1.8 1.1-2.5 - * A lbumin 4.3 3.5-5.3 - g/dL * A lkaline Phosphatase 113 40-129 - IU/L * A LT (SGPT) 15 <5-55 - IU/L * A ST (SGOT) 13 <5-46 - IU/L * B ilirubin, Total 0.9 <0.2-1.2 - mg/dL * B UN 11 6-20 - mg/dL * C alcium 8.9 8.6-10.4 - mg/dL * C hloride 102 97-108 - mmol/L * C O2 28 22-32 - mmol/L * C reatinine 0.78 0.70-1.30 - mg/dL * G lucose 230 H 65-99 - mg/dL * P otassium 3.9 3.5-5.3 - mmol/L * S odium 141 135-145 - mmol/L * P rotein 6.7 6.0-8.3 - g/dL * e GFR by Creatinine 105 >59 - mL/min/1.73m2 * Leena Maldonado 08/20/2024 8:47: 24 AM >See phone encounter ?LAB: Glucose (In-House) (Collection Date & Time - 08/17/2024)?260* Value Reference Range b lood glucose 260 74 - 106 mg/dL * Franchesca Gallardo 08/17/2024 12:2 5:29 PM > results reviewed w/ pt in office ?LAB: Glycohemoglobin A1c (in house) (Collection Date & Time - 08/17/2024)? 9.1%* Value Reference Range g lycohemoglobin 9.1% 5 - 6.5 % * Franchesca Gallardo 08/17/2024 12:2 6:01 PM > results reviewed w/ pt in office 3.?Essential hypertension? Continue Irbesartan Tablet, 300 MG, 1 tablet, Orally, Once a day;?Stop amLODIPine Besylate Tablet, 5 MG, 1 tablet, Orally, Once a day;?Start amLODIPine Besylate Tablet, 10 MG, 1 tablet, Orally, Once a day, 90 days, 90 Tablet, Refills 1.?LAB: P-Comprehensive Metabolic Panel (CMP) (Collection Date & Time - 08/17/2024 10:59 AM)?gluc 230* Value Reference Range A /G Ratio 1.8 1.1-2.5 - * A lbumin 4.3 3.5-5.3 - g/dL * A lkaline Phosphatase 113 40-129 - IU/L * A LT (SGPT) 15 <5-55 - IU/L * A ST (SGOT) 13 <5-46 - IU/L * B ilirubin, Total 0.9 <0.2-1.2 - mg/dL * B UN 11 6-20 - mg/dL * C alcium 8.9 8.6-10.4 - mg/dL * C hloride 102 97-108 - mmol/L * C O2 28 22-32 - mmol/L * C reatinine 0.78 0.70-1.30 - mg/dL * G lucose 230 H 65-99 - mg/dL * P otassium 3.9 3.5-5.3 - mmol/L * S odium 141 135-145 - mmol/L * P rotein 6.7 6.0-8.3 - g/dL * e GFR by Creatinine 105 >59 - mL/min/1.73m2 * Leena Maldonado 08/20/2024 8:47: 24 AM >See phone encounter 4.?Pure hypercholesterolemia?LAB: P-Comprehensive Metabolic Panel (CMP) (Collection Date & Time - 08/17/2024 10:59 AM)?gluc 230* Value Reference Range A /G Ratio 1.8 1.1-2.5 - * A lbumin 4.3 3.5-5.3 - g/dL * A lkaline Phosphatase 113 40-129 - IU/L * A LT (SGPT) 15 <5-55 - IU/L * A ST (SGOT) 13 <5-46 - IU/L * B ilirubin, Total 0.9 <0.2-1.2 - mg/dL * B UN 11 6-20 - mg/dL * C alcium 8.9 8.6-10.4 - mg/dL * C hloride 102 97-108 - mmol/L * C O2 28 22-32 - mmol/L * C reatinine 0.78 0.70-1.30 - mg/dL * G lucose 230 H 65-99 - mg/dL * P otassium 3.9 3.5-5.3 - mmol/L * S odium 141 135-145 - mmol/L * P rotein 6.7 6.0-8.3 - g/dL * e GFR by Creatinine 105 >59 - mL/min/1.73m2 * Leena Maldonado 08/20/2024 8:47: 24 AM >See phone encounter ?LAB: P-Lipid Panel (Collection Date & Time - 08/17/2024 10:59 AM)?trigs 158, hdl 32, chol/hdl 5.31, non-hdl 138, ldl/hdl 3.3* Value Reference Range C holesterol / HDL Ratio 5.31 H 0.00-4.99 - Ratio * C holesterol 170 <200 - mg/dL * H DL Cholesterol 32 L >39 - mg/dL * L DL Cholesterol (Calculation) 106 <130 - mg/d L * L DL/HDL Ratio 3.3 H <3.3 - Ratio * N on-HDL Cholesterol 138 H <130 - mg/dL * T riglycerides 158 H <150 - mg/dL * Leena Maldonado 08/20/2024 8:47: 24 AM >See phone encounter * Procedure Codes: 8 5025 CBC WITH AUTO DIFF, 89358 GLUCOSE TEST, 51895 GLYCATED HEMOGLOBIN TEST, Modifiers: QW * Follow Up: 3 Months * Images: Billing Information: * Visit Code: 57755 Office Visit, Est Pt., Level 4. * Procedure Codes: 15725 CBC WITH AUTO DIFF. 90068 GLUCOSE TEST. 75945 GLYCATED HEMOGLOBIN TEST. Modifiers: QW * Electronic signature of Camila Lizarraga MD on 07/30/2025 at 06:26 AM EST Sign off status: Pending * Provider: Aishwarya Lizarraga M.D. Date: 0 08/17/2024 Generated for Ulices soria/Oniel/eTransmyehuda on: 06:26 AM EST History and Physical Notes * HPI (History of Present Illness) Category Sub-Category Detail Notes Category Not es ENT/respiratory ear pain Pt sts that he f inished abx for an ear infection but sts that his ears are still bothering him and sts that he still feels like he has a head cold and has had this cold for a month Endocrinology Recent Blood Sugars Pt sts that he is due for an A1c Cardiology Blood Pressure Elevated Pt prese nts today for a 2.5 month follow up on hypertension. Pts BP is currently elevated and he sts that his vision is blurry Examination Category Sub-Category Detail Notes Category Not es ENT/Respiratory Oral cavity : minimal erythema without exudate on pharynx Neck : no cervical lymphade nopathy Heart : RRR, normal S1 S2 Lungs: clear to auscultatio n bilaterally General Appearance: NAD Eyes: PERRLA, sclera clear
--- OUTSIDE RECORDS SUMMARY | 2024-11-03 16:30 | XMS_ITS ---
Author Organization [facility] D [facility] Address [address] [place] [address] Care Team Providers Care Acute Dialysis Registered Nurse Name Role Phone Kenny Camilohen Primary Care Provider [phone] Brianna Martin Unavailable [phone] Migration, Provider Unavailable Unavailable Allergies Allergen (clinical drug ingredient) Drug/Non Drug Allergy documented on EMR Reaction Allergy Type Onset Date Status lisinopril Lisinopril cough Drug Allergy Active hydrochlorothiazide hydroCHLOROthiazide hyponatremia D rug Allergy Active REASON FOR VISIT [facility] To [facility] Conversion Encounter Medications Medication SIG (Take, Route, Frequency, Duration) Notes Start Date End Date Status Diclofenac Sodium 75 MG Tablet Delayed Release 1 tab(s) orally 2 times a day x 5 days then twice a day prn; Duration: 15 days 06/04/2022 Active hydrALAZINE HCl 50 MG Tablet 1 tab(s) orally twice a day; Duration: 90 days Active Cyclobenzaprine HCl 5 MG Tablet 1 tab(s) orally 3 times a day PRN spasm; Duration: 10 day(s) 06/04/2022 Active Atorvastatin Calcium 40 MG Tablet 1 tab orally daily; Duration: 90 days Active OZEMPIC 2 MG/1.5 ML (0.25 MG OR 0.5 MG DOSE) SOLUTION 0.5MG SUBCUTANEOUSLY ONCE A WEEK; Duration: 28 DAYS *Please review for potential replacement for e-prescription and drug interaction check* 04/14/2022 Active metFORMIN HCl 1000 MG Tablet 1 tab orally twice daily Active Aspirin BUFFERED 81 MG TABLET 81 MG ORALLY ONCE A DAY; Duration: 30 DAY(S) *Please review and pick correct strength-formulat ion from Touch Paymentsspan options. If intended option is not shown, discontinue and re-order from Quick Search* Active PEN NEEDLE 8MM 31G QD; Duration: 90 *Please revi ew for potential replacement for e-prescription and drug interaction check* 03/16/2017 Active POTASSIUM CHLORIDE ([id number]-[id number]-YGC M10) 10 MEQ TABLET, EXTENDED RELEASE TAKE ONE TABLET BY MOUTH EVERY DAY; Duration: 30 *Please review for potential replacement for e-prescription and drug interaction check* Active Jardiance 25 MG Tablet 1 tab(s) orally once a day (in the morning); Duration: 90 days 12/11/2021 Active Toujeo Max SoloStar 300 UNIT/ML Solution Pen-injector INJECT 50 UNITS UNDER THE SKIN ONCE DAILY Active Escitalopram Oxalate 10 MG Tablet 1 tab(s) orally once a day; Duration: 90 days Active FREESTYLE HAWA 2 SENSOR KIT 14 DAY SENSOR 1 INTERDERMAL DAILY; Duration: 14 DAYS *Please review for potential replacement for e-prescription and drug interaction check* 04/19/2022 Active Losartan Potassium 100 MG Tablet 1 tab by mouth once daily; Duration: 90 days Active Carvedilol 25 MG Tablet 1 tab(s) orally 2 times a day; Duration: 90 days Active Encounters Encounter Location Date Provider Diagnosis [facility] PED [facility]IST[facility] [address] [facility] [address] [place] [id number] 11/03/2024 Provider Migration Plan Of Treatment Medication Medication Name Sig Start Date Stop Date Notes hydrALAZINE HCl 50 MG Tablet 1 tab(s) orally twice a day; Duration: 90 days Atorvastatin Calcium 40 MG Tablet 1 tab orally daily; Duration: 90 days POTASSIUM CHLORIDE ([id number]-OLJ M10) 10 MEQ TABLET, EXTENDED RELEASE TAKE ONE TABLET BY MOUTH EVERY DAY; Duration: 30 *Please review for potential replacement for e-prescription and drug interaction check* Carvedilol 25 MG Tablet 1 tab(s) orally 2 times a day; Duration: 90 days Progress Notes * Marcello TEE LDOB:[birth year] (54 yo M)Acc No.[id number]:11/03/2024 Patient: Marcello Alejandro Provider: Gracia love Migration :1970 A ge:53 Y S ex:Male Date:11/03/2024 Address:[address] [place] [address], [place], [id number] Pcp:Luis A Camilo Subjective: * Chief Complaints: * [facility] * Medications: T akingPEN NEEDLE 8MM 31G QD , Notes to Pharmacist: *Please review for potential replacement for e-prescription and drug interaction check*Aspirin BUFFERED 81 MG TABLET 81 MG ORALLY ONCE A DAY , Notes to Pharmacist: *Please review and pick correct strength-formulation from Touch Paymentsspan options. If intended option is not shown, discontinue and re-order from Quick Search*metFORMIN HCl 1000 MG Tablet 1 tab orally twice daily Jardiance 25 MG Tablet 1 tab(s) orally once a day (in the morning) OZEMPIC 2 MG/1.5 ML (0.25 MG OR 0.5 MG DOSE) SOLUTION 0.5MG SUBCUTANEOUSLY ONCE A WEEK , Notes to Pharmacist: *Please review for potential replacement for e-prescription and drug interaction check*Diclofenac Sodium 75 MG Tablet Delayed Release 1 tab(s) orally 2 times a day x 5 days then twice a day prn Cyclobenzaprine HCl 5 MG Tablet 1 tab(s) orally 3 times a day PRN spasm FREESTYLE HAWA 2 SENSOR KIT 14 DAY SENSOR 1 INTERDERMAL DAILY , Notes to Pharmacist: *Please review for potential replacement for e-prescription and drug interaction check*Escitalopram Oxalate 10 MG Tablet 1 tab(s) orally once a day Toujeo Max SoloStar 300 UNIT/ML Solution Pen-injector INJECT 50 UNITS UNDER THE SKIN ONCE DAILY Losartan Potassium 100 MG Tablet 1 tab by mouth once daily Taking PEN NEEDLE 8MM 31G QD , Notes to Pharmacist: *Please review for potential replacement for e-prescription and drug interaction check*Taking Aspirin BUFFERED 81 MG TABLET 81 MG ORALLY ONCE A DAY , Notes to Pharmacist: *Please review and pick correct strength-formulation from Touch [employer] Software options. If intended option is not shown, discontinue and re-order from Quick Search*Taking metFORMIN HCl 1000 MG Tablet 1 tab orally twice daily Taking Jardiance 25 MG Tablet 1 tab(s) orally once a day (in the morning) Taking OZEMPIC 2 MG/1.5 ML (0.25 MG OR 0.5 MG DOSE) SOLUTION 0.5MG SUBCUTANEOUSLY ONCE A WEEK , Notes to Pharmacist: *Please review for potential replacement for e-prescription and drug interaction check*Taking Diclofenac Sodium 75 MG Tablet Delayed Release 1 tab(s) orally 2 times a day x 5 days then twice a day prn Taking Cyclobenzaprine HCl 5 MG Tablet 1 tab(s) orally 3 times a day PRN spasm Taking FREESTYLE HAWA 2 SENSOR KIT 14 DAY SENSOR 1 INTERDERMAL DAILY , Notes to Pharmacist: *Please review for potential replacement for e-prescription and drug interaction check*Taking Escitalopram Oxalate 10 MG Tablet 1 tab(s) orally once a day Taking Toujeo Max SoloStar 300 UNIT/ML Solution Pen-injector INJECT 50 UNITS UNDER THE SKIN ONCE DAILY Taking Losartan Potassium 100 MG Tablet 1 tab by mouth once daily * Allergies: L isinopril: coughhydroCHLOROthiazide: hyponatremia Plan: * Treatment: Billing Information: * Procedure Codes: * Electronic signature of Prov lynn Migration on 07/30/2025 at 06:25 AM EST Sign off status: Pending * Provider: Gracia love Migration Date: 0 11/03/2024 Generated for Ulices soria/Oniel/Darlin on: 1 06:25 AM EST
--- OUTSIDE RECORDS SUMMARY | 2024-11-23 06:15 | XMS_ITS ---
[facility] Address [address] [facility] [address] [place] [id number] Care Team Providers Care Air Conditioning Unit Tester Name Role Phone Compa Lizarraga Unavailable [phone] Allergies Allergen (clinical drug ingredient) Drug/Non Drug Allergy documented on EMR Reaction Allergy Type Onset Date Status metformin metFORMIN HCl diarrhea Drug Allergy Act aiden hydrochlorothiazide hydroCHLOROthiazide Unknown Drug Aller gy Active Results Component Value Reference Range Notes P-Basic Metabolic Panel (BMP ) Reviewed date:11/27/2024 09:31:12 AM Interpretation:gluc 255, bun 24 Performing Lab: Notes/Report: CLIA: [id number] Geoff Read MD, Solvent Station Attendant [address] [place] [address] , [place] [address] Test performed by [facility] Sodium 139 135-145 mmol/L Potassium 3.7 3.5-5.3 mmol/L Chloride 99 97-108 mmol/L CO2 25 22-32 mmol/L Glucose 255 65-99 mg/dL BUN 24 6-20 mg/dL Creatinine 0.88 0.70-1.30 mg/dL Calcium 9.1 8.6-10.4 mg/dL eGFR by Creatinine 101 >59 mL/min/1.73m2 P-Hemoglobin A1C Reviewed date:11/27/2024 09:31:12 AM Interpretation:13.3 Performing Lab: Notes/Report: Test performed by [facility] [address] [place] [address] [address], [address], [place] [address] Geoff Read MD, Solvent Station Attendant CLIA: [id number] Hemoglobin A1C 13.3 <5.7 % The following HbA1c ranges recommended by the [place] Diabetes [employer] (ADA) may be used as an aid in the diagnosis of diabetes mellitus. HbA1c Suggested Diagnosis >=6.5% Diabetic 5.7% - 6.4% Pre-Diabetic <5.7% Non-Diabetic Estimated Average Glucose Reviewed date:11/27/2024 09:31:12 AM Interpretation:335 Performing Lab: Notes/Report: Test performed by [facility] [address] [place] [address] , [address], [place] [address] Geoff Read MD, Solvent Station Attendant CLIA: [id number] Estimated Average Glucose (eAG) 335 Estimated Average Glucose (eAG) is calculated using the equation eAG = (28.7 x HbA1c) - 46.7 based on the guidelines established by the ADA. If the patient has certain diseases including kidney disease, sickle cell anemia, thalassemia, or is taking medications such as dapsone, erythropoietin, or iron, eAG should not be evaluated. REASON FOR VISIT 3 mos checkup Medications Medication SIG (Take, Route, Frequency, Duration) Notes Start Date End Date Status Ozempic (1 MG/DOSE) 4 MG/3ML 1 mg Subcutaneous once weekly patient is only taking 1/2 dose 08/17/2024 Active amLODIPine Besylate 10 MG 1 tablet Orally Once a day; Duration: 90 days 08/17/2024 Active Irbesartan 300 MG 1 tablet Orally Once a day; Duration: 90 days Active Farxiga 10 MG 1 tablet Orally Once a day; Duration: 90 days Active Vital Signs Blood pressure systolic 138 mm Hg 11/24/19 25 Blood pressure diastolic 82 mm Hg 025 Heart Rate 101 /min 11/23/2024 Height 69 in 11/23/2024 Weight 167.2 lbs 11/23/2024 BMI 24.69 kg/m2 11/23/2024 Encounters Encounter Location Date Provider Diagnosis [facility] [address] [facility] [address] [place] [id number] 11/23/2024 Compa Lizarraga Type 2 diabetes mellitus without complication, without long-term current use of insulin E11.9 and BMI 24.0-24.9, adult Z68.24 Assessments Encounter Date Diagnosis (ICD Code) Assessment Notes Treatment Notes Treatment Clinical Notes Section Notes 11/23/2024 Type 2 diabetes mellitus without complication, without long-term current use of insulin (ICD-10 - E11.9) 11/23/2024 BMI 24.0-24.9, adult (ICD-10 - Z68.24) Plan Of Treatment Next Appt Details Follow Up: 3 Months, Reason: Provider Name:Compa Velia Tarah ry, 08/28/2025 09:15:00 AM, [address], [address], [place], [phone], Progress Notes * Marcello TEEDOB: [birth year] (54 yo M)Acc No.[id number]:11/23/2024 Progress Notes Patient: Marcello VERGARA Provider: Aishwarya Lizarraga M.D. :1970 A ge:53 Y S ex:Male Date:11/23/2024 Address:[address] [place] [address] [place] [id number] Subjective: * Chief Complaints: * 1 . 3 mos checkup. * HPI: E ndocrinology: 53 year old male presents with c/o Recent Blood Sugars P t here to f/u on DM 2, pt states that he does not check blood sugar at home as his glucometer is broken . * ROS: D ERMATOLOGY: no R anna. [...] every 2-3 weeks. * Medications: T aking Ozempic (1 MG/DOSE) 4 MG/3ML Solution Pen-injector 1 mg Subcutaneous once weekly , Notes to Pharmacist: patient is only taking 1/2 dose, Taking amLODIPine Besylate 10 MG Tablet 1 tablet Orally Once a day , Taking Irbesartan 300 MG Tablet 1 tablet Orally Once a day , Taking Farxiga 10 MG Tablet 1 tablet Orally Once a day , Medication List reviewed and reconciled with the patient * Allergies: h ydroCHLOROthiazide: Side Effects, metFORMIN HCl: diarrhea - Side Effects. Objective: * Vitals: W t: 167.2, Temp: 98.0, BP: 138/82, HR: 101, Nurse: hussain, Ht: 69, BMI:24.69. * Examination: C ardiology: General Appearance: p leasant, NAD. H eart sounds: R RR, normal S1, S2. L ungs: c lear, no rales or wheezes. E xtremities: n o leg edema. Assessment: * Assessment: 1. T ype 2 diabetes mellitus without complication, without long-term current use of insulin - E11.9 2 . B WI 24.0-24.9, adult - Z68.24 Plan: * Treatment: Value Reference Range B UN 24 H 6-20 - mg/dL * C alcium 9.1 8.6-10.4 - mg/dL * C hloride 99 97-108 - mmol/L * C O2 25 22-32 - mmol/L * C reatinine 0.88 0.70-1.30 - mg/dL * G lucose 255 H 65-99 - mg/dL * P otassium 3.7 3.5-5.3 - mmol/L * S odium 139 135-145 - mmol/L * e GFR by Creatinine 101 >59 - mL/min/1.73m2 * Leena Maldonado 11/27/2024 09:3 1:04 AM > See phone encounter ?LAB: P-Hemoglobin A1C (Collection Date & Time - 11/23/2024 10:48 AM)?13.3* Value Reference Range H emoglobin A1C 13.3 H <5.7 - % * Leena Maldonado 11/27/2024 09:3 1:04 AM > See phone encounter * Labs: * L ab: Estimated Average Glucose (Collection Date & Time - 11/23/2024 10:48 AM) 3 35 Value Reference Range E stimated Average Glucose 335 - mg/dL * [facility], IT support 11/24/2024 06:30:18 : This order was created by the Interface. Leena Maldonado 11/27/2024 09:31:04 AM > See phone encounter * Procedure Codes: 3 075F SYST BP GE 130 - 139MM HG, 3079F DIAST BP 80-89 MM HG, 3046F HEMOGLOBIN A1C LEVEL > 9.0% * Follow Up: 3 Months * Images: Billing Information: * Visit Code: 05893 Office Visit, Est Pt., Level 3. * Procedure Codes: 3075F SYST BP GE 130 - 139MM HG. 3079F DIAST BP 80-89 MM HG. 3046F HEMOGLOBIN A1C LEVEL > 9.0%. * Electronic signature of Camila Lizarraga MD on 07/30/2025 at 06:24 AM EST Sign off status: Pending * Provider: Aishwarya Lizarraga M.D. Date: 0 11/23/2024 Generated for Ulices soria/Oniel/Louiseitting on: 1 06:24 AM EST History and Physical Notes * HPI (History of Present Illness) Category Sub-Category Detail Notes Category Not es Endocrinology Recent Blood Sugars Pt here to f /u on DM 2, pt states that he does not check blood sugar at home as his glucometer is broken Examination Category Sub-Category Detail Notes Category Not es Cardiology Lungs: clear, no rales or wheezes Heart sounds: RRR, normal S1, S2 Extremities: no leg edema General Appearance: pleasant, NAD
--- OUTSIDE RECORDS SUMMARY | 2025-02-21 06:00 | XMS_ITS ---
Author Organization Margie Address [address] [facility] [address] [facility] [address] [place] [id number] Care Team Providers Care Canine Deputy Name Role Phone [place], Compa Unavailable [phone] Allergies Allergen (clinical drug ingredient) Drug/Non Drug Allergy documented on EMR Reaction Allergy Type Onset Date Status metformin metFORMIN HCl diarrhea Drug Allergy Act aiden hydrochlorothiazide hydroCHLOROthiazide Unknown Drug Aller gy Active Results Component Value Reference Range Notes Nerve Conduction Study Reviewed date:03/13/2025 01:02:34 PM Interpretation:Polyneuropathy Performing Lab: Notes/Report: Polyneuropathy REASON FOR VISIT discuss FMLA pw Medications Medication SIG (Take, Route, Frequency, Duration) Notes Start Date End Date Status amLODIPine Besylate 10 MG 1 tablet Orall y Once a day; Duration: 90 days Active Irbesartan 300 MG 1 tablet Orally Once a day; Duration: 90 days Active Tresiba FlexTouch 200 UNIT/ML 30 Units Subcutaneous daily Active Farxiga 10 MG 1 tablet Orally Once a day; Duration: 90 days Active Insulin Lispro 100 UNIT/ML as directed Injection Active Problems Problem Type SNOMED Code ICD Code Onset Dates Problem Status W/U Status Risk Notes Problem Hypoglycemia due to diabetes mellitus (disorder) (500802858) 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) Active confirmed Vital Signs Blood pressure systolic 160 mm Hg 02/22/20 25 Blood pressure diastolic 90 mm Hg 025 Heart Rate 97 /min 02/21/2025 Height 69 in 02/21/2025 Weight 188.2 lbs 02/21/2025 BMI 27.79 kg/m2 02/21/2025 Encounters Encounter Location Date Provider Diagnosis [facility] [address] [facility] [address] [place] [id number] 02/21/2025 Compa Lizarraga Neuropathic pain, le g, bilateral G57.93 and Diabetic hypoglycemia E11.649 Assessments Encounter Date Diagnosis (ICD Code) Assessment Notes Treatment Notes Treatment Clinical Notes Section Notes 02/21/2025 Neuropathic pain, leg, bilateral (ICD-10 - G57.93) 02/21/2025 Diabetic hypoglycemia (ICD-10 - E11.649) Patient needs to resume CGM JUNE, he will notify his Endo Plan Of Treatment Treatment Notes Assessment Notes Diabetic hypoglycemia Patient needs to r esume CGM JUNE, he will notify his Endo Next Appt Details Follow Up: 3 Months, Reason: Provider Name:Compa Rascon ry, 08/28/2025 09:15:00 AM, [address], [address], [place], [place], [id number], Progress Notes * Marcello TEEDOB: [birth year] (54 yo M)Acc No.[id number]:02/21/2025 Progress Notes Patient: Marcello VERGARA Provider: Aishwarya Lizarraga M.D. :1970 A ge:54 Y S ex:Male Date:02/21/2025 Address:[address] [place], [place] [id number] Subjective: * Chief Complaints: * 1 . discuss FMLA pw. * HPI: H PI: 54 year old male presents with c/o Patient is here today for?Pt here to discuss having FMLA paperwork filled out. Pt states he is having issues with DM 2. Pt states A1C has improved, 11/23 13.3% and 01/11 9.5%. Pt has continued with blurry vision at times, may be due to low blood sugar, a nd he thinks he may have neuropathy. * ROS: D ERMATOLOGY: no R anna. [...] every 2-3 weeks. * Medications: T aking Insulin Lispro 100 UNIT/ML Solution as directed Injection , Taking Tresiba FlexTouch 200 UNIT/ML Solution Pen-injector 30 Units Subcutaneous daily , Taking amLODIPine Besylate 10 MG Tablet 1 tablet Orally Once a day , Taking Irbesartan 300 MG Tablet 1 tablet Orally Once a day , Taking Farxiga 10 MG Tablet 1 tablet Orally Once a day , Discontinued Ozempic (1 MG/DOSE) 4 MG/3ML Solution Pen-injector 1 mg Subcutaneous once weekly , Medication List reviewed and reconciled with the patient * Allergies: h ydroCHLOROthiazide: Side Effects, metFORMIN HCl: diarrhea - Side Effects. Objective: * Vitals: W t: 188.2, Temp: 98.1, BP: 160/90, HR: 97, Nurse: hussain, Ht: 69, BMI:27.79. * Examination: G eneral Examination: General Appearance: N AD. Assessment: * Assessment: 1. N europathic pain, leg, bilateral - G57.93 (Primary) 2 . D iabetic hypoglycemia - E11.649 Plan: * Treatment: 2.?Diabetic hypoglycemia? Notes: Patient needs to resume CGM JUNE, he will notify his Endo?? * Follow Up: 3 Months * Images: Billing Information: * Visit Code: 14975 Office Visit, Est Pt., Level 3. * Procedure Codes: * Electronic signature of Camila Lizarraga MD on 07/30/2025 at 06:24 AM EST Sign off status: Pending * Provider: Aishwarya Lizarraga M.D. Date: 0 02/21/2025 Generated for Ulices soria/Oniel/Darlin on: 06:24 AM EST History and Physical Notes * HPI (History of Present Illness) Category Sub-Category Detail Notes Category Not es HPI Patient is here today for Pt her e to discuss having FMLA paperwork filled out. Pt states he is having issues with DM 2. Pt states A1C has improved, 11/23 13.3% and 01/11 9.5%. Pt has continued with blurry vision at times, may be due to low blood sugar, and he thinks he may have neuropathy Examination Category Sub-Category Detail Notes Category Not es General Examination General Appearance: NAD
--- OUTSIDE RECORDS SUMMARY | 2025-05-30 08:15 | XMS_ITS ---
Author Organization Manjinder Address 1210 [facility] [address] [place] [id number] Care Team Providers Care Mini Baccarat Dealer Name Role Phone Compa Lizarraga Unavailable [phone] Charla Starkey Unavailable [phone] Allergies Allergen (clinical drug ingredient) Drug/Non Drug [...] Provider Diagnosis Manjinder [address] [facility] [address] [place] [phone] 05/30/2025 Charla Starkey Essential hypertensi on I10 [...] [address], [address], [place], [place], [id number], Progress Notes * Marcello TEEDOB: [birth year] (54 yo M)Acc No.[id number]:05/30/2025 Progress Notes Patient: Marcello VERGARA Provider: NICHO Chiang :1970 A ge:54 Y S ex:Male Date:05/30/2025 Address:[address] [place] [address] MIGUELANGEL Christian [id number] Subjective: * Chief Complaints: * 1 . [...] * Images: Billing Information: * Visit Code: 78615 Office Visit, Est Pt., Level 3. * Procedure Codes: * Electronic signature of NICHO Glez on 07/30/2025 at 06:25 AM EST Sign off status: Pending * Provider: NICHO Chiang Date: Generated for Ulices soria/Oniel/eTransmitting on: 06:25 AM EST History and Physical [...]
--- OUTSIDE RECORDS SUMMARY | 2025-06-07 09:30 | XMS_ITS ---
Author Organization Manjinder Address 1210 [facility] [address] [place] [phone] Care Team Providers Care Pyrometallurgical Engineer Name Role Phone Compa Lizarraga Unavailable [phone] Allergies Allergen (clinical drug ingredient) Drug/Non Drug Allergy documented on EMR Reaction Allergy Type Onset Date Status metformin metFORMIN HCl diarrhea Drug Allergy Act aiden hydrochlorothiazide hydroCHLOROthiazide Unknown Drug Aller gy Active REASON FOR VISIT 3 months Medications Medication SIG (Take, Route, Frequency, Duration) Notes Start Date End Date Status Farxiga 10 MG 1 tablet Orally Once a day; Duration: 90 days Active Tresiba FlexTouch 200 UNIT/ML 30 Units Subcutaneous daily Active Chlorthalidone 25 MG 1/2 tablet in the m orning with food Orally; Duration: 30 days 06/07/2025 Active Insulin Lispro 100 UNIT/ML as directed Injection Active Metoprolol Succinate ER 25 MG 2 tablets Orally Once a day 05/30/2025 Active amLODIPine Besylate 10 MG 1 tablet Orall y Once a day Active Irbesartan 300 MG 1 tablet Orally Once a day Active Vital Signs Blood pressure systolic 144 mm Hg 06/07/20 25 Blood pressure diastolic 90 mm Hg 025 Heart Rate 70 /min 06/07/2025 Height 69 in 06/07/2025 Weight 200.0 lbs 06/07/2025 BMI 29.53 kg/m2 06/07/2025 Encounters Encounter Location Date Provider Diagnosis Manjinder [address] [facility] [address] [place] [phone] 06/07/2025 Compa Lizarraga Essential hypertensi on I10 Assessments Encounter Date Diagnosis (ICD Code) Assessment Notes Treatment Notes Treatment Clinical Notes Section Notes 06/07/2025 Essential hypertension (ICD-10 - I10) Blood pressure journal Plan Of Treatment Medication Medication Name Sig Start Date Stop Date Notes Chlorthalidone 25 MG 1/2 tablet in the m orning with food Orally; Duration: 30 days 06/07/2025 Metoprolol Succinate ER 25 MG 2 tablets Orally Once a day 05/30/2025 amLODIPine Besylate 10 MG 1 tablet Orally Once a day Irbesartan 300 MG 1 tablet Orally Once a day Treatment Notes Assessment Notes Essential hypertension Blood pressure yesica dominguez Next Appt Details Follow Up: 2 Weeks, Reason: Provider Name:Compa Rascon ry, 08/28/2025 09:15:00 AM, [address], [address], [place], [place], [id number], Progress Notes * Marcello TEEDOB: [birth year] (54 yo M)Acc No.[id number]:06/07/2025 Progress Notes Patient: Marcello VERGARA Provider: Aishwarya Lizarraga M.D. :1970 A ge:54 Y S ex:Male Date:06/07/2025 Address:[address] [place], [place] [phone] Subjective: * Chief Complaints: * 1 . 3 months. * HPI: E ndocrinology: 54 year old male presents with c/o Recent Blood Sugars P t here for 3 month follow up on DM2. C ardiology: c/o Blood Pressure Elevated P t here for follow up on BP. Pt was seen by Lashanda on 05/30 and started Metoprolol 25MG. Pt's BP has still been running high . * Medical History: H ypertension, Diabetes Type [...] tablet Orally Once a day , Taking Metoprolol Succinate ER 25 MG Tablet Extended Release 24 Hour 1 tablet Orally Once a day , Medication List reviewed and reconciled with the patient * Allergies: h ydroCHLOROthiazide: Side Effects, metFORMIN HCl: diarrhea - Side Effects. Objective: * Vitals: W t: 200.0, Temp: 98.0, BP: 144/90, HR: 70, Nurse: SF, Ht: 69, BMI:29.53. * Examination: G eneral Examination: General Appearance: N AD. H eart: R SR. L ungs:?clear to auscultation. Assessment: * Assessment: 1. E ssential hypertension - I10 (Primary) Plan: * Treatment: * Follow Up: 2 Weeks * Images: Billing Information: * Visit Code: 87666 Office Visit, Est Pt., Level 3. * Procedure Codes: * Electronic signature of Camila Lizarraga MD on 07/30/2025 at 06:25 AM EST Sign off status: Pending * Provider: Aishwarya Lizarraga M.D. Date: 08/07/2024 Generated for Ulices soria/Oniel/Louiseitting on: 06:25 AM EST History and Physical Notes * HPI (History of Present Illness) Category Sub-Category Detail Notes Category Not es Endocrinology Recent Blood Sugars Pt here for 3 month follow up on DM2 Cardiology Blood Pressure Elevated Pt here for follow up on BP. Pt was seen by Lashanda on 05/30 and started Metoprolol 25MG. Pt's BP has still been running high Examination Category Sub-Category Detail Notes Category Not es General Examination Heart: RSR Lungs: clear to auscultatio n General Appearance: NAD
--- OUTSIDE RECORDS SUMMARY | 2025-06-28 06:00 | XMS_ITS ---
Author Organization [facility] Address [address] [facility] [address] [facility] [address] [place] [id number] Care Team Providers Care Imaging Nurse Name Role Phone Compa Lizarraga Unavailable [phone] Allergies Allergen (clinical drug ingredient) Drug/Non Drug Allergy documented on EMR Reaction Allergy Type Onset Date Status metformin metFORMIN HCl diarrhea Drug Allergy Act aiden hydrochlorothiazide hydroCHLOROthiazide Unknown Drug Aller gy Active Results Component Value Reference Range Notes P-Basic Metabolic Panel (BMP ) Reviewed date:07/02/2025 09:16:10 AM Interpretation:Glu 263, BUN 21 Performing Lab: Notes/Report: Test performed by [employer] [address] , [address], [place] [address] Steffen Mejia MD, PhD, FCAP, House Rn CLIA: [id number] Sodium 142 135-145 mmol/L Potassium 3.6 3.5-5.3 [...] 30 Units Subcutaneous daily Active Vital Signs Blood pressure systolic 132 mm Hg 06/28/20 25 Blood pressure diastolic 82 mm Hg 025 Heart Rate 68 /min 06/28/2025 Height 69 in 06/28/2025 Weight 193.4 lbs 06/28/2025 BMI 28.56 kg/m2 06/28/2025 Encounters Encounter Location Date Provider Diagnosis [facility] [address] [facility] [address] [facility] [address] [place], [place] [phone] 06/28/2025 Compa Lizarraga Essential hypertensi on I10 [...] 08/28/2025 09:15:00 AM, [address] [facility], [address], [place], [place], [phone], Progress Notes * Marcello TEEDOB: [birth year] (54 yo M)Acc No.[id number]:06/28/2025 Progress Notes Patient: Marcello VERGARA Provider: Aishwarya Lizarraga M.D. :1970 A ge:54 Y S ex:Male Date:06/28/2025 Address:[address] [place] [address] [id number] Subjective: * Chief Complaints: * 1 . [...] * Images: Billing Information: * Visit Code: 84549 Office Visit, Est Pt., Level 3. * Procedure Codes: 3075F SYST BP GE 130 - 139MM HG. 3079F DIAST BP 80-89 MM HG. * Electronic signature of Camila Lizarraga MD on 07/30/2025 at 06:24 AM EST Sign off status: Pending * Provider: Aishwarya Lizarraga M.D. Date: 08/28/2024 Generated for Ulices soria/Oniel/Jordanaransmitting on: 06:24 AM EST History and Physical [...]
--- OUTSIDE RECORDS SUMMARY | 2025-07-29 05:30 | XMS_ITS ---
[facility] Address [address] [facility] [address] [facility] [address] [place] [id number] Care Team Providers Care Dental Scheduler Name Role Phone Compa Lizarraga Unavailable [phone] Allergies Allergen (clinical drug ingredient) Drug/Non Drug Allergy documented on EMR Reaction Allergy Type Onset Date Status metformin metFORMIN HCl diarrhea Drug Allergy Act aiden hydrochlorothiazide hydroCHLOROthiazide Unknown Drug Aller gy Active Results Component Value Reference Range Notes P-Basic Metabolic Panel (BMP ) (Not yet reviewed by provider) Interpretation: Performing Lab: Notes/Report: Test performed by [email or web address] [address] , [address], [place], [place] [address] [place] [address] Jose Mejia MD, PhD, [facility] [place], Site Auditor CLIA: [id number] Sodium 145 135-145 mmol/L Potassium 4.2 3.5-5.3 mmol/L Chloride 106 97-108 mmol/L CO2 29 20-32 mmol/L Glucose 174 65-99 mg/dL BUN 25 6-20 mg/dL Creatinine 1.03 0.70-1.30 mg/dL Calcium 9.0 8.6-10.4 mg/dL eGFR by Creatinine 85 >59 mL/min/1.73m2 REASON FOR VISIT [facility] D/C Follow Up Medications Medication SIG (Take, Route, Frequency, Duration) Notes Start Date End Date Status amLODIPine Besylate 10 MG 1 tablet Orall y Once a day; Duration: 90 days Active Metoprolol Succinate ER 50 MG 1 tablet Orally Once a day; Duration: 90 days 05/30/2025 Active Potassium Chloride ER 10 MEQ 1 tablet with food Orally daily Active Tresiba FlexTouch 200 UNIT/ML 30 Units Subcutaneous daily Active Insulin Lispro 100 UNIT/ML as directed Injection Active Farxiga 10 MG 1 tablet Orally Once a day; Duration: 90 days Active Irbesartan 300 MG 1 tablet Orally Once a day Active Chlorthalidone 25 MG 1/2 tablet in the m orning with food Orally daily; Duration: 90 days 06/07/2025 Active Vital Signs Weight 194.8 lbs 07/29/2025 Blood pressure systolic 142 mm Hg 07/29/20 25 Blood pressure diastolic 80 mm Hg 025 Heart Rate 72 /min 07/29/2025 Height 69 in 07/29/2025 BMI 28.76 kg/m2 07/29/2025 Encounters Encounter Location Date Provider Diagnosis [facility] [address] [facility] [address] [facility] [address] [place] [id number] 07/29/2025 Compa Lizarraga Elevated troponin R79.89 and Hypokalemia E87.6 Assessments Encounter Date Diagnosis (ICD Code) Assessment Notes Treatment Notes Treatment Clinical Notes Section Notes 07/29/2025 Elevated troponin (ICD-10 - R79.89) Keep appointment for cardiac stress test in the morning at [facility] 07/29/2025 Hypokalemia (ICD-10 - E87.6) 07/29/2025 Other Discharge summary with available lab/diagnostic imaging results obtained and reviewed. Discharge medication list reconciled. Appropriate counseling provided. Moderate Complexity Plan Of Treatment Medication Medication Name Sig Start Date Stop Date Notes Potassium Chloride ER 10 MEQ 1 tablet wi th food Orally daily Treatment Notes Assessment Notes Elevated troponin Keep appointment for cardiac stress test in the morning at [facility] Other Discharge summary wi th available lab/diagnostic imaging results obtained and reviewed. Discharge medication list reconciled. Appropriate counseling provided. Moderate Complexity Pending Test Test Name Order Date P-Basic Metabolic Panel (BMP) 07/29/2025 Next Appt Details Follow Up: as scheduled,and prn, Reason: Provider Name:Compa Rascon ry, 08/28/2025 09:15:00 AM, [address] [facility] [address] [facility], [address], [place], [phone], Progress Notes * NAY VigneshnunuDOB: [birth year] (54 yo M)Acc No.[id number]:07/29/2025 Progress Notes Patient: Marcello VERGARA Provider: Aishwarya Lizarraga M.D. :1970 A ge:54 Y S ex:Male Date:07/29/2025 Address:[address] [place] [address] VICENTE HICKMAN [id number] Subjective: * Chief Complaints: * 1 . [facility] D/C Follow Up. * HPI: H PI: Patient is here today for a Transition of Care Visit. Discharge from the following Facility: Patient was admitted to [facility] on 07/15/2025 with dizziness and hypokalemia, Discharge date: 07/16/2025 ,Date of phone contact following discharge: 07/17/2025. Pt states he is doing pretty good and has no concerns. Pt states he has a stress test tomorrow morning at [facility]. * Medical History: H ypertension, Diabetes Type [...] every 2-3 weeks. * Medications: T aking Potassium Chloride ER 10 MEQ Tablet Extended Release 1 tablet with food Orally daily , Taking Insulin Lispro 100 UNIT/ML Solution as directed Injection , Taking Tresiba FlexTouch 200 UNIT/ML Solution Pen-injector 30 Units Subcutaneous daily , Taking Farxiga 10 MG Tablet 1 tablet Orally Once a day , Taking Chlorthalidone 25 MG Tablet 1/2 tablet in the morning with food Orally daily , Taking Irbesartan 300 MG Tablet 1 tablet Orally Once a day , Taking Metoprolol Succinate ER 50 MG Tablet Extended Release 24 Hour 1 tablet Orally Once a day , Taking amLODIPine Besylate 10 MG Tablet 1 tablet Orally Once a day , Medication List reviewed and reconciled with the patient * Allergies: h ydroCHLOROthiazide: Side Effects, metFORMIN HCl: diarrhea - Side Effects. Objective: * Vitals: W t: 194.8, Temp: 97.8, BP: 142/80, HR: 72, O2 Sat: 97% on RA, Nurse: ROBERTO, Ht: 69, BMI:28.76. * Examination: C ardiology: General Appearance: p leasant, NAD. H eart sounds: R RR, normal S1, S2. L ungs: c lear, no rales or wheezes. Assessment: * Assessment: 1. E levated troponin - R79.89 (Primary) 2 . H ypokalemia - E87.6 ? Plan: * Treatment: 2. H ypokalemia Continue Potassium Chloride ER Tablet Extended Release, 10 MEQ, 1 tablet with food, Orally, daily.? L AB: P-Basic Metabolic Panel (BMP) (Collection Date & Time - 07/29/2025 10:15 AM) Value Reference Range B UN 25 H 6-20 - mg/dL * C alcium 9.0 8.6-10.4 - mg/dL * C hloride 106 97-108 - mmol/L * C O2 29 20-32 - mmol/L * C reatinine 1.03 0.70-1.30 - mg/dL * G lucose 174 H 65-99 - mg/dL * P otassium 4.2 3.5-5.3 - mmol/L * S odium 145 135-145 - mmol/L * e GFR by Creatinine 85 >59 - mL/min/1.73m2 3.?Others? Notes: Discharge summary with available lab/diagnostic imaging results obtained and reviewed. Discharge medication list reconciled. Appropriate counseling provided. Moderate Complexity?? * Procedure Codes: 9 9495 [facility] 14 DAY DISCH, 1111F [facility] * Follow Up: a s scheduled,and prn * Images: Billing Information: * Visit Code: 58934 Office Visit, Est Pt., Level 3. * Procedure Codes: 59275 [facility] 14 DAY DISCH. 1111F [facility]. * Electronic signature of Camila Lizarraga MD on 07/30/2025 at 06:25 AM EST Sign off status: Pending * Provider: Aishwarya Lizarraga M.D. Date: Generated for Ulices soria/Oniel/Louiseitting on: 06:25 AM EST History and Physical Notes * HPI (History of Present Illness) Category Sub-Category Detail Notes Category Not es HPI Patient is here today for a Angel sition of Care Visit. Discharge from the following Facility: Patient was admitted to [facility] on 07/15/2025 with dizziness and hypokalemia, Discharge date: 07/16/2025 ,Date of phone contact following discharge: 07/17/2025. Pt states he is doing pretty good and has no concerns. Pt states he has a stress test tomorrow morning at [facility] Examination Category Sub-Category Detail Notes Category Not es Cardiology Lungs: clear, no rales or wheezes Heart sounds: RRR, normal S1, S2 General Appearance: pleasant, NAD
--- NOTE | 2025-07-30 | CA_ITS ---
APPROVED REPORT Exam: Pharmacologic Technologist: Baylee Corey Stress Nurse: Alfonso Black Ht: 5 ft 9 in Wt: 189 lbs BSA: 2.02 m2 Indications: Abnormal EKG Medical History Medications: Amlodipine, Chlorthalidone, Farxiga, Tresiba insulin, Insulin Lispro, Irbesartan, Metoprolol Succinate ER, Potassium chloride ER. Stress Test Details Test: Lexisan Reason for pharmacologic stress test: changed from exercise stress test due to inability to reach target heart rate. HR Resting HR: 68 bpm Max Heart Rate (APMHR): 164.603302 bpm Max HR Achieved: 75 bpm Target HR (85% APMHR): 139.718362 bpm % of APMHR: 45.73 Recovery HR: 75 bpm BP Resting BP: 153.0/85.0 mmHg Max BP: 153.0/85.0 mmHg Recovery BP: 105.0/58.0 mmHg ECG Resting ECG: NSR, NSSTTW Abnormalities Inf/Lat. Stress ECG Conclusion Symptoms: Slight dizziness/Light headed. Arrhythmias/Ectopy: None. ST-T changes: Baseline EKG abnormalities as noted above with only mild exacerbation during stress. Conclusion: Non-diagnostic Lexiscan stress. Electronically signed by : Nakita Morocho MD 07/30/2025 18:42:59
--- OUTSIDE RECORDS SUMMARY | 2025-07-30 06:25 | XMS_ITS | Referral Summary ---
Author Organization [employer] ([place], [place], [place], [place], [place]) Address [address] [place] [address] Care Team Providers Care Credit Risk Analyst Name Role Phone Unavailable Primary Care Provider [...]
--- OUTSIDE RECORDS SUMMARY | 2025-07-30 06:25 | XMS_ITS | Continuity of Care Document ---
Author Organization [facility], [facility] Address [address] [facility] [address] [place] [address] Care Team Providers Care Flower Arranger Name Role Phone MOON DELANEY Referring Provider [phone] Assessment No assessment recorded. Plan of Treatment Reminders Order Date Submit Date Provider Last Modified By Organization Details Last Modified Time Details Appointments RECHECK 2025 01:00P Mich RAO APRN Not available Not available Not available Lab glucose, fingerst ick, blood [address] [facility], [address] [facility], [address], [place], [address], 07/03/2025 13:24:13 hemoglob in A1C, fingerst ick [address] [facility], [address] [facility], [address], [place], [address], 07/03/2025 13:24:13 Referral None recorded . Procedures None recorded . Surgeries None recorded . Imaging None recorded . Medication Orders Tresiba FlexTouc h U-200 insulin 200 unit/mL (3 mL) subcutan eous pen 2024 025 [id number], [address], [phone], 07/03/2025 13:24:57 insulin lispro (U-100) 100 unit/mL subcutan eous pen 2024 025 [facility], [address] [place] [address] [address] [place], [place], [phone], 07/03/2025 13:27:57 Farxiga 10 mg tablet 2024 025 [facility], [address] [place] [address] [address] [place], [place], [phone], 07/03/2025 13:27:57 Ozempic 0.25 mg or 0.5 mg (2 mg/3 mL) subcutan eous pen injector 2024 025 [id number], [address] [facility] [address] [place], [place], [phone], 07/15/2025 08:33:59 Patient TargetsNo targets recorded. Patient InstructionsNo instructions recorded. Reason for Referral None Reported. Results Created Date Observation Date Name Description Value Unit Range Abnormal Flag Note LastModifiedBy Organization Detail LastModifiedTime 07/03/20 25 07/03/2025 hemog lobin A1C, finge rstic k hemoglobin A1C % 8.6 4.0 - 5.6 Not Available [facility] [address], [address], 07/02/2025 10:53:29 07/03/20 25 07/03/2025 gluco se, finge rstic k, blood glucose, fingerstick 335 mg/dL 70 - 100 Not Available [facility] [address], [place], [address], 07/02/2025 10:53:28 Result Notes None recorded. Medical Equipment None Reported. Allergies Allergen ID Allergen Name Allergen Category Reaction Reaction Severity Criticality Documentation Date Start Date Code Code System Note Provider Name and Address Organization Details Recorded Time 548933 hydrochlo rothiazid e medicatio n cough severe high 12/14/20241999 5487 RxNorm GUEVARA BELL MAIRA, DERRICK MAN [address] [place], [address], [facility] 5 14:03:38 864575 metformin medicatio n Not available Not available Not available 07/03/2025 6809 RxNorm Not Available rick - External Data Service - prod 06:20:02 973637 lisinopri l medicatio n Not available Not available Not available 07/11/2025 71434 RxNorm Not Available rick - External Data Service - prod 11:24:39 892557 Ozempic medicatio n Not available Not available Not available 07/15/2025 07 RxNorm GUEVARA PEÑARIGO RAO, DERRICK MAN [address] [place], [address], [facility] 08:34:10 Medications Name Sig Start Date [...] Address Organization Details Last Updated DateTime 07/03/2025 81953.1 g 57 /min 180/98 mm[Hg] Sheila Olguin [place] - [facility] 07/03/2025 13:05:08 Social History None recorded. Functional Status None recorded. Mental Status None recorded. Family History Nothing Reported. Medical History No medical history recorded. Past Encounters Encounter ID Performer Location Encounter Start Date Encounter Closed Date Diagnosis/Indication Diagnosis SNOMED-CT Code Diagnosis ICD10 Code Diagnosis IMO Codes Diagnosis Note [id number] GUEVARA RAO, JAKOB ENDOCRINO [facility] [address] [place] [address] 07/03/2025 12:47:58 07/03/2025 13:54:00 Uncontrolled type 2 diabetes mellitus 780883151 E11.65 [id number] In office today A1c of 8.6%, up [...] exam: Up-to-date as of July 2024 with [facility]. Negative for diabetic retinopath y per [...] ID Guarantor Name 07/03/2025 1 [employer] [id number] Marcello Gonzalez [id number] Marcello Murillo Carlos Notes Date Note [...] going to do better with glucose control. GUEAVRA RAO, DERRICK MAN [address] [place], [address], [facility] 07/03/2025 13:56:43
--- OUTSIDE RECORDS SUMMARY | 2025-07-30 06:25 | XMS_ITS | Data Portability ---
Author Organization ISAIAH SUZAN [facility] Address [address] [place] [address] Care Team Providers Care Excellence Consultant Name Role Phone MOON DELANEY Referring Provider [phone] Assessment No assessment recorded. Plan of Treatment Reminders Order Date Submit Date Provider Last Modified By Organization Details Last Modified Time Details Appointments RECHECK 2025 01:00P Mich KIM APRN Not available Not available Not available Lab glucose, fingerst ick, blood [address], [address] [facility], [address] [place] [address], [address], 07/03/2025 13:24:13 hemoglob in A1C, fingerst ick [address], [address] [facility], [address], [place], [address], 07/03/2025 13:24:13 glucose, fingerst ick, blood [address], [address] [facility], [address], [place], [address], 04/03/2025 13:39:39 hemoglob in A1C, fingerst ick [address], [address] [facility], [address], [place], [address], 04/03/2025 13:39:39 glucose, fingerst ick, blood [address] [facility], [address] [place] [address], [address], 01/11/2025 14:38:02 hemoglob in A1C, fingerst ick [address] [facility], [address] [place] [address], [address], 01/11/2025 14:38:02 microalb umin/cre atinine, mass ratio, urine 2024 025 [facility], [address] [place] [address], [address], 12/14/2024 16:31:14 lipid panel, serum 2024 025 [facility], [address] [place] [address], [address], 12/14/2024 16:09:25 hepatic function panel, serum 2024 025 [facility], [address] [place] [address], [address], 12/14/2024 16:09:23 glucose, fingerst ick, blood [address] [facility], [address] [place] [address], [address], 12/14/2024 14:36:39 hemoglob in A1C, fingerst ick [address] [facility], [address] [place] [address], [address], 12/14/2024 14:36:39 Referral nutritio nist/ titian referral [email or web address], [address] [place], [address], 12/28/2024 17:39:40 Procedures None recorded . Surgeries None recorded . Imaging None recorded . Medication Orders Tresiba FlexTouc h U-200 insulin 200 unit/mL (3 mL) subcutan eous pen 2024 [facility] #[id number], [address] [facility] [address], ISAIAH Barrera, [id number], 07/03/2025 13:24:57 insulin lispro (U-100) 100 unit/mL subcutan eous pen 2024 [email or web address], [address] [place] [address] [address] [place], [phone], 07/03/2025 13:27:57 Farxiga 10 mg tablet 2024 [email or web address], [address] [place] [address] [address] [place], [id number], 07/03/2025 13:27:57 Ozempic 0.25 mg or 0.5 mg (2 mg/3 mL) subcutan eous pen injector 2024 [facility] #[id number], [address] [facility] [address] [place], [id number], 07/15/2025 08:33:59 Tresiba FlexTouc h U-200 insulin 200 unit/mL (3 mL) subcutan eous pen 2024 025 [employer], [address] [place] [address] [address], [id number], 04/03/2025 13:47:40 insulin lispro (U-100) 100 unit/mL subcutan eous pen 2024 025 [facility], [address] [place] [address] [address] [place], [id number], 04/03/2025 13:47:41 Farxiga 10 mg tablet 2024 025 [facility], [address] [place] [address] [address] [place], [id number], 04/03/2025 13:47:42 Tresiba FlexTouc h U-200 insulin 200 unit/mL (3 mL) subcutan eous pen 2024 025 [facility], [address] [place] [address] [address] [place], [id number], 01/11/2025 14:42:02 insulin lispro (U-100) 100 unit/mL subcutan eous pen [address] [place] [address], [address] [place] [address] [address], [id number], 01/11/2025 14:42:02 Farxiga 10 mg tablet 2024 [facility], [address] [place] [address] [address] [place], [id number], 01/11/2025 14:42:02 Tresiba FlexTouc h U-200 insulin 200 unit/mL (3 mL) subcutan eous pen [email or web address] [facility] [address] [facility], [address] [place] [address] [address] [place], [id number], 01/11/2025 14:03:20 insulin lispro (U-100) 100 unit/mL subcutan eous pen [address] [place] [address], [address] [place] [address] [address], [place], [place], [phone], 12/14/2024 20:16:40 Patient TargetsNo targets recorded. Patient Instructions Encounter Date Encounter Id Patient Instructions Last Modified By Organization Details Last Modified Time 12/14/2024 [id number] medical record request* - Most recent diabetic eye exam RICK Not available 12/25/2024 16:22:[address] Light Repairer/dietitian Refer ral for Uncontrolled type 2 diabetes mellitus Referring Physician: Kay Kim, Endocrinology, Encounter Date: 12/14/2024 Results Created Date Observation Date Name Description Value Unit Range Abnormal Flag Note LastModifiedBy Organization Detail LastModifiedTime 12/15/1912/14/2024 HEPAT IC (LIVE R) PANEL AST 19 U/L 0-40 normal Not Available [facility] [address] [place] [address], [phone], 12/14/2024 16:09:23 12/15/19 25 12/14/2024 HEPAT IC (LIVE R) PANEL ALT 20 U/L 0-41 normal Not Available [facility] [address] [place] [address], [address], 12/14/2024 16:09:23 12/15/19 25 12/14/2024 HEPAT IC (LIVE R) PANEL alkaline phosphatase 126 U/L 40-129 normal Not Available [facility] [address] [place] [address], [phone], 12/14/2024 16:09:23 12/15/19 25 12/14/2024 HEPAT IC (LIVE R) PANEL total protein 7.0 g/dL 6.4-8. 3 normal Not Available [facility] [address] [place] [address], [address], 12/14/2024 16:09:23 12/15/19 25 12/14/2024 HEPAT IC (LIVE R) PANEL albumin 4.2 g/dL 3.5-5. 2 normal Not Available [facility] [address] [place] [address], [address], 12/14/2024 16:09:23 12/15/19 25 12/14/2024 HEPAT IC (LIVE R) PANEL bilirubin, total 0.7 mg/dL 0.1-1. 2 normal Not Available [facility] [address] [place] [address], [address], 12/14/2024 16:09:23 12/15/19 25 12/14/2024 HEPAT IC (LIVE R) PANEL bilirubin, direct 0.2 mg/dL 0.0-0. 3 normal Not Available [facility] [address] [place] [address], [address], 12/14/2024 16:09:23 12/15/19 25 12/14/2024 HEPAT IC (LIVE R) PANEL bilirubin, indirect 0.5 mg/dL _(carmela c) 0.0-1. 0 normal Not Available [facility] [address] [place] [address], [address], 12/14/2024 16:09:23 12/15/19 25 12/14/2024 LIPID PROFI LE HDL cholesterol 31 mg/dL 40-242 low Not Available [facility] [address] [place] [address], [address], 12/14/2024 16:09:25 12/15/19 25 12/14/2024 LIPID PROFI LE triglyceride s 129 mg/dL 0-149 normal TRIGL YCERI DE RANGE S CARLO L: < 150 BORDE RLINE HIGH: 150 - 199 HIGH: 200 - 499 VERY HIGH: > OR = 500 Not Available [facility] [address] [place] [address], [address], 12/14/2024 16:09:25 12/15/19 25 12/14/2024 LIPID PROFI LE cholesterol 156 mg/dL 0-199 normal NEVILLE STERO L (TOTA L) RANGE S ROSETTA ABLE: < 200 BORDE RLINE : 200 - 239 HIGHE R RISK: > 239 Not Available [facility] [address] [place] [address], [address], 12/14/2024 16:09:25 12/15/19 25 12/14/2024 LIPID PROFI LE LDL cholesterol 99 mg/dL _(carmela c) 0-99 normal LDL NEVILLE STERO L RANGE S OPTIM AL: < 100 NEAR/ ABOVE OPTIM AL: 100 - 129 BORDE RLINE HIGH: 130 - 159 HIGH: 160 - 189 VERY HIGH: > OR = 190 Not Available [facility] [address] [place] [address], [address], 12/14/2024 16:09:25 12/15/19 25 12/14/2024 LIPID PROFI LE chol/HDL ratio (calc) 5.0 mg/dL normal NO CARLO L RANGE ESTAB LISHE D FOR NEVILLE STERO L/HDL RATIO (CALC ULATE D). Not Available [facility] [address] [place] [address], [address], 12/14/2024 16:09:25 12/15/19 25 12/14/2024 MICRO ALBUM IN/CR EAT RATIO microalbumin , random 20 mg/L 0-19 high Not Available [facility] [address] [place] [address], [address], 12/14/2024 16:31:14 12/15/19 25 12/14/2024 MICRO ALBUM IN/CR EAT RATIO creatinine,u r,random 20 mg/dL normal NO CARLO L RANGE ESTAB LISHE D FOR RANDO M URINE . Not Available [facility] [address] [place] [address], [address], 12/14/2024 16:31:14 12/15/19 25 12/14/2024 MICRO ALBUM IN/CR EAT RATIO MA/creatinin e ratio 100 mcg/m g_cre at 0-29 high Not Available [facility] [address] [place] [address], [address], 12/14/2024 16:31:14 12/15/19 25 12/14/2024 hemog lobin A1C, finge rstic k hemoglobin A1C % 13.3 % 4.0 - 5.6 Not Available [facility] [address] [place] [address], [address], 12/14/2024 14:10:12 12/15/19 25 12/14/2024 gluco se, finge rstic k, blood glucose, fingerstick 303 mg/dL 70 - 100 Not Available [facility] [address] [place] [address], [address], 12/14/2024 14:10:03 01/12/20 25 01/11/2025 hemog lobin A1C, finge rstic k hemoglobin A1C % 9.5 % 4.0 - 5.6 Not Available [facility] [address] [place] [address], [address], 01/10/2025 09:31:17 01/12/20 25 01/11/2025 gluco se, finge rstic k, blood glucose, fingerstick 83 mg/dL 70 - 100 Not Available [facility] [address], [address], 01/10/2025 09:31:17 04/03/20 25 04/03/2025 hemog lobin A1C, finge rstic k hemoglobin A1C % 6.7 4.0 - 5.6 Not Available [facility] [address], [place], [address], 04/03/2025 13:19:39 04/03/20 25 04/03/2025 gluco se, finge rstic k, blood glucose, fingerstick 172 mg/dL 70 - 100 Not Available [facility] [address], [place], [address], 04/03/2025 13:19:23 07/03/20 25 07/03/2025 hemog lobin A1C, anthony rstic k hemoglobin A1C % 8.6 4.0 - 5.6 Not Available [facility] [address], [place], [address], 07/02/2025 10:53:29 07/03/20 25 07/03/2025 gluco se, anthony rstic k, blood glucose, fingerstick 335 mg/dL 70 - 100 Not Available [facility] [address], [place], [address], 07/02/2025 10:53:28 Result Notes None recorded. Medical Equipment None Reported. Allergies Allergen ID Allergen Name Allergen Category Reaction Reaction Severity Criticality Documentation Date Start Date Code Code System Note Provider Name and Address Organization Details Recorded Time 961516 hydrochlo rothiazid e medicatio n cough severe high 12/14/20241999 5487 RxNorm KAY KIM, WET FINISHER [address] [place], [address], [facility] 5 14:03:38 191012 metformin medicatio n Not available Not available Not available 07/03/2025 6809 RxNorm Not Available rick - External Data Service - prod 06:20:02 347716 lisinopri l medicatio n Not available Not available Not available 07/11/2025 36632 RxNorm Not Available rick - External Data Service - prod 5 11:24:39 796333 Ozempic medicatio n Not available Not available Not available 07/15/2025 07 RxNorm KAY KIM, WET FINISHER [address] [facility] [place], [address], [facility] 5 08:34:10 Medications Name Sig Start Date [...] Address Organization Details Last Updated DateTime 12/14/2024 94010.26 g 132/88 mm[Hg] KAY KIM, WET FINISHER [address] [place], [address], [facility] 12/14/2024 14:02:17 Date Recorded Body weight Heart rate Systolic And Diastolic Provider Name and Address Organization Details Last Updated DateTime 01/11/2025 46392.18 g 72 /min 166/110 mm[Hg] Frances [facility] 01/11/2025 14:04:19 Date Recorded Body weight Heart rate Systolic And Diastolic Provider Name and Address Organization Details Last Updated DateTime 04/03/2025 19542.18 g 78 /min 167/104 mm[Hg] Frances [facility] 04/03/2025 13:17:07 Date Recorded Body weight Heart rate Systolic And Diastolic Provider Name and Address Organization Details Last Updated DateTime 07/03/2025 89159.1 g 57 /min 180/98 mm[Hg] Sheila Olguin [facility] 07/03/2025 13:05:08 Social History None recorded. Functional Status None recorded. Mental Status None recorded. Family History Nothing Reported. Medical History No medical history recorded. Past Encounters Encounter ID Performer Location Encounter Start Date Encounter Closed Date Diagnosis/Indication Diagnosis SNOMED-CT Code Diagnosis ICD10 Code Diagnosis IMO Codes Diagnosis Note [id number] KAY KIM APRN [facility]OCRINO [facility] [address] [place] [address] 12/14/2024 13:52:49 12/17/2024 07:54:10 Uncontrolled type 2 diabetes mellitus 690069570 E11.65 [id number] A1c from labs on the 2024 was [...] educated on this medication , how to motor coach chauffeur, and potential side effects).S tart Novolog 6-8 units, 15 minutes before meals three times a day (patient educated on this medication , how to motor coach chauffeur, and potential side effects).C heck blood sugar every morning upon waking, before lunch, and alternate between before dinner and bed.Diabet ic nutrition consult ASAPFollow -up in 4 weeks Eye exam: Up-to-date as of July 2024 with [place]. Negative for diabetic retinopath y per patient report. Records requested. 10 g monofilame nt test: Will perform at next visitMedi al Nutrition therapy: Consult placed at today's visit Essential hypertension [id number] I10 01766 Goal BP less than 140/90BP in office today 132/88Cont inue current irbesartan , amlodipine daily as prescribed by PCP.Contin ue BP monitoring at home. [id number] KAY KIM APRN [facility]CRINO [facility] [address] [place] [address] 01/11/2025 13:57:52 01/11/2025 14:40:19 Uncontrolled type 2 diabetes mellitus [id number] E11.65 [id number] In office today A1c of 9.5%, down from 13.3%.[place] [facility] point-of-c are blood glucose of 83. [...] exam: Up-to-date as of July 2024 with [facility]. Negative for diabetic retinopath y per patient report. Records have been requested. 10 g monofilame nt test: Performed today and unremarkab leMedical Nutrition therapy: Consult placed prior visit, patient provided with dietitian phone number to call and schedule this.MACR November 2024 was positive at 100 [id number] KAY KIM APRN ENDOCRINO [facility] [address] [place] [address] 04/03/2025 13:04:53 04/03/2025 13:34:03 Uncontrolled type 2 diabetes mellitus [id number] E11.65 [id number] In office today A1c of 6.7%, down [...] exam: Up-to-date as of July 2024 with [facility]. Negative for diabetic retinopath y per patient report. Records have been requested. 10 g monofilame nt test: Up to date.Medic al Nutrition therapy: Consult completed 11/2024MACR November 2024 was positive at 100 Essential hypertension [id number] I10 97388 Goal BP less than 140/90BP in office today 167/104 (patient states he has not had BP medicine in 2 days due to travel, however he will start back on this tomorrow). Continue current irbesartan , amlodipine daily as prescribed by PCP.Contin ue BP monitoring at home. [id number] KAY KIM APRN ENDOCRINO [facility] [address] [place] [address] 07/03/2025 12:47:58 07/03/2025 13:54:00 Uncontrolled type 2 diabetes mellitus [id number] E11.65 [id number] In office today A1c of 8.6%, up [...] ID Guarantor Name 07/08/2025 1 HUMERA-ISAIAH (PPO) [id number] Marcello Gonzalez [id number] Marcello Gonzalez Notes Date Note Type [...] significant for hypertension. KAY KIM APRN [address] [place], [address], [facility] 12/14/2024 15:00:19 01/11/2025 text/html ROS as noted in the HPI Marcello is a 54-year-old male who presents office today for follow-up on diabetes management. Patient states he is experiencing much better glucose control since initial visit with our office and starting insulin therapy. KAY KIM APRN [address] [place], [address], [facility] 01/11/2025 14:38:24 04/03/2025 text/html ROS as noted in the HPI Marcello is a 54 year old male who presents to office today for followup on diabetes management. KAY KIM APRN [address] [place], [address], [facility] 04/03/2025 13:40:05 07/03/2025 text/html ROS as noted [...] with glucose control. KAY KIM APRN [address] [place], [address], [facility] 07/03/2025 13:56:43
--- OUTSIDE RECORDS SUMMARY | 2025-07-30 06:25 | XMS_ITS | Patient Health Record ---
[facility] Address [address] [facility] [address] [place] [id number] Care Team Providers Care Insights Strategist Name Role Phone Compa Lizarraga Unavailable [phone] Davi Pinto Unavailable [phone] Charla Starkey Unavailable [phone] Allergies Allergen (clinical drug ingredient) Drug/Non Drug Allergy documented on EMR Reaction Allergy Type Onset Date Status metformin metFORMIN HCl diarrhea Drug Allergy Act aiden hydrochlorothiazide hydroCHLOROthiazide Unknown Drug Aller gy Active Results Component Value Reference Range Notes P-Basic Metabolic Panel (BMP ) Reviewed date:11/27/2024 09:31:12 AM Interpretation:gluc 255, bun 24 Performing Lab: Notes/Report: Test performed by [facility] [address] [place], [place] [address] [place] , [address], [place] [address] Geoff Read MD, Assistant In Nursing CLIA: [id number] Sodium 139 135-145 mmol/L Potassium 3.7 3.5-5.3 mmol/L Chloride 99 97-108 mmol/L CO2 25 22-32 mmol/L Glucose 255 65-99 mg/dL BUN 24 6-20 mg/dL Creatinine 0.88 0.70-1.30 mg/dL Calcium 9.1 8.6-10.4 mg/dL eGFR by Creatinine 101 >59 mL/min/1.73m2 P-Hemoglobin A1C Reviewed date:11/27/2024 09:31:12 AM Interpretation:13.3 Performing Lab: Notes/Report: Test performed by [facility] [address] [place], [place] [address] [address], [place] [address] Geoff Read MD, Assistant In Nursing CLIA: [id number] Hemoglobin A1C 13.3 <5.7 % The following HbA1c ranges recommended by the [place] [employer] (ADA) may be used as an aid in the diagnosis of diabetes mellitus. HbA1c Suggested Diagnosis >=6.5% Diabetic 5.7% - 6.4% Pre-Diabetic <5.7% Non-Diabetic Estimated Average Glucose Reviewed date:11/27/2024 09:31:12 AM Interpretation:335 Performing Lab: Notes/Report: Test performed by [facility] [address] [place] [address] [address], [place] [address] Geoff Read MD, Assistant In Nursing CLIA: [id number] Estimated Average Glucose (eAG) 335 Estimated Average [...] 21 Performing Lab: Notes/Report: Test performed by [facility] [address] [place] [address] [address], [place] [address] Steffen Mejia MD, PhD, FCAP, Assistant In Nursing CLIA: [id number] Sodium 142 135-145 mmol/L Potassium 3.6 3.5-5.3 mmol/L Chloride 99 97-108 mmol/L CO2 32 20-32 mmol/L Glucose 263 65-99 mg/dL BUN 21 6-20 mg/dL Creatinine 0.91 0.70-1.30 mg/dL Calcium 8.9 8.6-10.4 mg/dL eGFR by Creatinine 99 >59 mL/min/1.73m2 Carotid Duplex Reviewed date:07/02/2025 09:16:10 AM Interpretation:Less than 50%, bilaterally Performing Lab: Notes/Report: Less than 50%, bilaterally Echocardiogram Reviewed date:07/02/2025 09:16:10 AM Interpretation: Performing Lab: Notes/Report: P-Lipid Panel Reviewed date:08/20/2024 08:47:27 AM Interpretation:trigs 158, hdl 32, chol/hdl 5.31, non-hdl 138, ldl/hdl 3.3 Performing Lab: Notes/Report: Test performed by [facility] [address] [facility] , [address], [place] [address] Geoff Read MD, Assistant In Nursing CLIA: [id number] Cholesterol 170 <200 mg/dL Triglycerides 158 <150 [...] 230 Performing Lab: Notes/Report: Test performed by [facility] [address] [place] [address] , [address], [place] [address] Geoff Read MD, Assistant In Nursing CLIA: [id number] Sodium 141 135-145 mmol/L Potassium 3.9 3.5-5.3 [...] blood glucose 260 74 - 106 mg/dL Covid test (in house) Reviewed date:08/02/2024 11:49:19 PM Interpretation:neg Performing Lab: Notes/Report: neg Result: neg CBC Fingerstick (in house) Reviewed date:08/02/2024 [...] - 38 plat 115 100 - 400 Influenza Screen (in house) Reviewed date:08/02/2024 11:49:35 PM Interpretation:neg Performing Lab: Notes/Report: neg results neg Covid test (in house) Reviewed date:08/09/2024 03:57:44 PM Interpretation: Performing Lab: Notes/Report: Result: Neg CBC Fingerstick (in house) Reviewed date:08/09/2024 [...] - 38 plat 112 100 - 400 Influenza Screen (in house) Reviewed date:08/09/2024 03:57:44 PM Interpretation: Performing Lab: Notes/Report: results Neg P-Basic Metabolic Panel (BMP ) (Not yet reviewed by provider) Interpretation: Performing Lab: Notes/Report: Test performed by [facility] [address] [facility] , [address], [place] [address] Steffen Mejia MD, PhD, [facility], Assistant In Nursing CLIA: [id number] Sodium 145 135-145 mmol/L Potassium 4.2 3.5-5.3 mmol/L Chloride 106 97-108 mmol/L CO2 29 20-32 mmol/L Glucose 174 65-99 mg/dL BUN 25 6-20 mg/dL Creatinine 1.03 0.70-1.30 mg/dL Calcium 9.0 8.6-10.4 mg/dL eGFR by Creatinine 85 >59 mL/min/1.73m2 Reason For Referral No Information Medications Medication SIG (Take, Route, Frequency, Duration) Notes Start Date End Date Status Farxiga 10 MG 1 tablet Orally Once a day; Duration: 90 days Active Irbesartan 300 MG 1 tablet Orally Once a day Active Chlorthalidone 25 MG 1/2 tablet in the m orning with food Orally daily; Duration: 90 days 06/07/2025 Active amLODIPine Besylate 10 MG 1 tablet [...] W/U Status Risk Notes Problem Essential hypertension (48996601) Essential hypertension (I10) Active confirmed Problem Type II diabetes mellitus without complication (485091058) Type 2 diabetes mellitus without complication, without long-term current use of insulin (E11.9) Active confirmed Problem Pure hypercholesterolemia (259348660) Pure hypercholesterolemia (E78.00) Active confirmed Problem Hyperglycemia due to type 2 diabetes mellitus (765572365220116) Uncontrolled type 2 diabetes mellitus with hyperglycemia (E11.65) Active confirmed Problem Hypoglycemia due to diabetes mellitus (disorder) (055843079) 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) Active confirmed Vital Signs Heart Rate 72 /min 07/29/2025 Blood pressure diastolic 80 mm Hg 07/29/2025 Height 69 in 07/29/2025 Blood pressure systolic 142 mm Hg 07/29/2025 Weight 194.8 lbs 07/29/2025 BMI 28.76 kg/m2 07/29/2025 Encounters Encounter Location Date Provider Diagnosis Man[facility] [address] [place], [place] [id number] 08/02/2024 Charla Crowdy Acute URI J06.9 ; Br onchitis J40 and Bilateral acute otitis media H66.93 [facility] [address] [place], [place] [id number] 08/09/2024 Charla Crowdy Acute URI J06.9 ; Br onchitis J40 and Bilateral acute otitis media H66.93 [facility] [address] [place], [place] [id number] 08/17/2024 [facility] [place] Cough, unspecified t ype R05.9 ; Type 2 diabetes mellitus without complication, without long-term current use of insulin E11.9 ; Essential hypertension I10 and Pure hypercholesterolemia E78.00 [facility] [address] [place], [place] [id number] 11/23/2024 [facility] [place] Type 2 diabetes margot itus without complication, without long-term current use of insulin E11.9 and BMI 24.0-24.9, adult Z68.24 [facility] [address] [place], [place] [id number] 02/21/2025 [facility] [place] Neuropathic pain, le g, bilateral G57.93 and Diabetic hypoglycemia E11.649 [facility] [address] [facility] [address] [place], [place] [id number] 05/30/2025 Charla Crowdy Essential hypertensi on I10 [facility] [address] [facility] [address] [place], [place] [id number] 06/07/2025 [facility] [place] Essential hypertensi on I10 [facility] [address] [place], [place] [id number] 06/28/2025 [facility] [place] Essential hypertensi on I10 [facility] [address] [place], [place] [id number] 07/29/2025 [facility] [place] Elevated troponin R7 9.89 and Hypokalemia E87.6 [facility] [address] [place], [place] [id number] 08/02/2024 Charla Crowdy [facility] [address] [place] [id number] 08/20/2024 [facility] [place] [facility] [address] [place], [place] [id number] 11/27/2024 [facility] [place] Uncontrolled type 2 diabetes mellitus with hyperglycemia E11.65 [facility] [address] [place], [place] [id number] 03/13/2025 [facility] [place] [facility] [address] [place], [place] [id number] 05/31/2025 Charla Jadendy [facility] [address] [place], [place] [id number] 06/14/2025 [facility] [place] Essential hypertensi on I10 [facility] [address] [place], [place] [id number] 07/02/2025 [facility] [place] [facility] [address] [place], [place] [id number] 07/17/2025 [facility] [place] [facility] [address] [place], [place] [id number] 07/18/2025 [facility] [place] [facility] [address] [place], [place] [id number] 07/19/2025 [facility] [place] Essential hypertensi on I10 Assessments Encounter Date Diagnosis (ICD Code) Assessment Notes Treatment Notes Treatment Clinical Notes Section Notes 08/09/2024 Bronchitis (ICD-10 - J40) Resolved. 08/09/2024 Acute URI (ICD-10 - J06.9) Will switch from Mucinex D to coricidin as his BP is still elevated. He will monitor it at home. 11/23/2024 Type 2 diabetes mellitus without complication, without long-term current use of insulin (ICD-10 - E11.9) 11/23/2024 BMI 24.0-24.9, adult (ICD-10 - Z68.24) 06/14/2025 Essential hypertensi on (ICD-10 - I10) 06/28/2025 Essential hypertensi on (ICD-10 - I10) Much better control today 07/19/2025 Essential hypertensi on (ICD-10 - I10) 07/29/2025 Hypokalemia (ICD-10 - E87.6) 07/29/2025 Elevated troponin (ICD-10 - R79.89) Keep appointment for cardiac stress test in the morning at [facility] 06/07/2025 Essential hypertensi on (ICD-10 - I10) Blood pressure journal 05/30/2025 Essential hypertensi on (ICD-10 - I10) 02/21/2025 Diabetic hypoglycemi a (ICD-10 - E11.649) Patient needs to resume CGM JUNE, he will notify his Endo 02/21/2025 Neuropathic pain, le g, bilateral (ICD-10 - G57.93) 11/27/2024 Uncontrolled type 2 diabetes mellitus with hyperglycemia (ICD-10 - E11.65) 08/02/2024 Bronchitis (ICD-10 - J40) 08/02/2024 Acute URI (ICD-10 - J06.9) Patient will check BP when he gets home. If still elevated, he will stop the OTC cough and congestion medication and call back for a rx cough medication or start coricidin. 08/17/2024 Type 2 diabetes mellitus without complication, without long-term current use of insulin (ICD-10 - E11.9) 08/17/2024 Cough, unspecified t ype (ICD-10 - R05.9) 08/09/2024 Bilateral acute otit is media (ICD-10 - H66.93) 08/17/2024 Essential hypertensi on (ICD-10 - I10) 08/02/2024 Bilateral acute otit is media (ICD-10 [...] be ordered once we have a diagnosis. 07/29/2025 Other Discharge summary with available lab/diagnostic imaging results obtained and reviewed. Discharge medication list reconciled. Appropriate counseling provided. Moderate Complexity Plan Of Treatment Pending Test Test Name Order Date P-Basic Metabolic Panel (BMP) 07/29/2025 Next Appt Details Provider Name:Com[facility] martinez, 08/28/2025 09:15:00 AM, [address], [address], [place], [place], [id number], Insurance Providers Payer Name Payer Address Payer Phone Subscriber Number Group Number Insured Name Patient Relationship to Insured Coverage Start Date Coverage End Date [facility] PHILLIPS [facility] [address] [place] [address] [id number] Marcello Rasmussen Self - patient is the insured Medical (General) History Medical History History ICD Code Hypertension Diabetes Type 2 Hyperlipidemia Allergic Rhinitis Diverticulosis Surgical History Surgery Date(Month/Year) Appendectomy 1979 Colonoscopy 2021
--- OUTSIDE RECORDS SUMMARY | 2025-07-30 06:25 | XMS_ITS | Clinical Summary ---
Author Organization [facility] lin Address [address] [place] [address] Care Team Providers Care Machine Welt Butter Name Role Phone Unavailable Primary Care Provider [...]
--- OUTSIDE RECORDS SUMMARY | 2025-07-30 06:25 | XMS_ITS | Clinical Summary ---
Author Organization [facility] ([place], [place], [place], [place], [place]) Address [address] [place] [address] Care Team Providers Care Curriculum Supervisor Name Role Phone Unavailable Primary Care Provider [...]
--- OUTSIDE RECORDS SUMMARY | 2025-07-30 06:26 | XMS_ITS | Patient Health Record ---
Author Organization [facility] [place] Address [address] [place] [address] Care Team Providers Care Cartographic Designer Name Role Phone Luis A Camilo Primary Care Provider Brianna Martin Unavailable [phone] Migration, Provider Unavailable Unavailable Allergies Allergen (clinical drug ingredient) Drug/Non Drug Allergy documented on EMR Reaction Allergy Type Onset Date Status lisinopril Lisinopril cough Drug Allergy Active hydrochlorothiazide hydroCHLOROthiazide hyponatremia D rug Allergy Active Medications Medication SIG (Take, Route, Frequency, Duration) Notes Start Date End Date Status metFORMIN HCl 1000 MG Tablet 1 tab orally twice daily Active Aspirin BUFFERED 81 MG TABLET 81 MG ORALLY ONCE A DAY; Duration: 30 DAY(S) *Please review and pick correct strength-formulat ion from [employer] options. If intended option is not shown, discontinue and re-order from Quick Search* Active PEN NEEDLE 8MM 31G QD; Duration: 90 *Please revi ew for potential replacement for e-prescription and drug interaction check* 03/16/2017 Active Losartan Potassium 100 MG Tablet 1 tab by mouth once daily; Duration: 90 days Active OZEMPIC 2 MG/1.5 ML (0.25 MG OR 0.5 MG DOSE) SOLUTION 0.5MG SUBCUTANEOUSLY ONCE A WEEK; Duration: 28 DAYS *Please review for potential replacement for e-prescription and drug interaction check* 04/14/2022 Active Jardiance 25 MG Tablet 1 tab(s) orally once a day (in the morning); Duration: 90 days 12/11/2021 Active Diclofenac Sodium 75 MG Tablet Delayed Release 1 tab(s) orally 2 times a day x 5 days then twice a day prn; Duration: 15 days 06/04/2022 Active Pb Brandon SoloStar 300 UNIT/ML Solution Pen-injector INJECT 50 UNITS UNDER THE SKIN ONCE DAILY Active Escitalopram Oxalate 10 MG Tablet 1 tab(s) orally once a day; Duration: 90 days Active hydrALAZINE HCl 50 MG Tablet 1 tab(s) orally twice a day; Duration: 90 days Active FREESTYLE HAWA 2 SENSOR KIT 14 DAY SENSOR 1 INTERDERMAL DAILY; Duration: 14 DAYS *Please review for potential replacement for e-prescription and drug interaction check* 04/19/2022 Active Cyclobenzaprine HCl 5 MG Tablet 1 tab(s) orally 3 times a day PRN spasm; Duration: 10 day(s) 06/04/2022 Active Atorvastatin Calcium 40 MG Tablet 1 tab orally daily; Duration: 90 days Active Carvedilol 25 MG Tablet 1 tab(s) orally 2 times a day; Duration: 90 days Active POTASSIUM CHLORIDE (ZUW-FQLF-DAL M10) 10 MEQ TABLET, EXTENDED RELEASE TAKE ONE TABLET BY MOUTH EVERY DAY; Duration: 30 *Please review for potential replacement for e-prescription and drug interaction check* Active Immunizations Vaccine Route Administration Date Status Comme nts Influenza-Fluzone 3+years (NON-MEDICARE) IM Intramuscular 04/29/2017 Administered Influenza-Fluzone 3+years (NON-MEDICARE) IM Intramuscular 03/27/2018 Administered Flublok IM Intramuscular 04/28/2022 Administered Social History Social History Additional Details Category Social Info Options Details Social History Occupation: [employer] Travel outside [place]: no Alcohol: no Sexually active: yes Recreational drug use: no Exercise: no Home smoke detector use: yes Caffeine: yes frequency:tea da gemma to every other day Living Will No Problems Problem Type SNOMED Code ICD Code Onset Dates Problem Status W/U Status Risk Notes Problem Type II diabetes mellitus without complication (930386324) Type 2 diabetes mellitus without complications (E11.9) Active confirmed Problem Generalized anxiety disorder (63038581) Generalized anxiety disorder (F41.1) Active confirmed Problem Duodenitis (93461832) Duodenitis without bleeding (K29.80) Active confirmed Problem Sciatica (52615046) Lumbago with sciatica, right side (M54.41) Active confirmed Problem Sciatica (82242606) Lumbago with sciatica, left side (M54.42) Active confirmed Problem Balanitis (76775411) Balanitis (N48.1) Active confirmed Problem Erectile dysfunction (394216160) Erectile dysfunction (N52.9) Active confirmed Problem Hyperlipidemia (18339814) Hyperlipidemia (E78.5) Active confirmed Problem Essential hypertension (26275852) Hypertension, essential (I10) Active confirmed Problem 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) Active confirmed Problem Hypoglycemia (936709057) Hypoglycemia (E16.2) Active confirmed Problem Fatty liver (139420054) Fatty liver (K76.0) Active confirmed Problem Angina pectoris (769261256) Angina pectoris (I20.9) Active confirmed Problem Acute constipation (597323587) Acute constipation (K59.00) Active confirmed Problem Benign prostatic hypertrophy without outflow obstruction (565905764) BPH without urinary obstruction (N40.0) Active confirmed Problem Chronic serous otitis media (62631312) Left chronic serous otitis media (H65.22) Active confirmed Encounters Encounter Location Date Provider Diagnosis [facility] [place] [address] [facility] [address] [place] [address] 11/03/2024 Provider Migration Plan Of Treatment Pending Test Test Name Order Date Urinalysis 09/12/2015 H-CBC with AUTO DIFF 08/27/2014 H-CBC with AUTO DIFF 03/01/2012 H-URINE CULTURE 02/16/2014 H-CMP 08/27/2014 H-CMP 03/01/2012 H-CMP 11/14/2009 H-LIPID PANEL 11/14/2009 H-LIPID PANEL 08/27/2014 H-AMYLASE 03/01/2012 H-LIPASE 03/01/2012 H-HGBA1C 08/27/2014 H-PSA SCREEN 08/27/2014 H-MICROALBUMIN URINE 10/28/2016 C-URINE CULTURE 11/22/2013 MRA : Neck w/Contrast 07/31/2018 N-CBC with raciel slide reading by patho logist for leukocytosis 02/09/2017 H-HEPATITIS C PROFILE 02/09/2017 M-Complete Blood Count Auto Diff 023 M-Comprehensive Metabolic Panel 08/09/19 M-Hemoglobin A1C 08/09/2022 M-Lipid Panel 08/09/2022 Rapid [...] Insured Coverage Start Date Coverage End Date [facility] [employer] [address] [place] [address] [id number] Marcello Gonzalez Self - patient is the insured Medications Administered Medication Instructions Date of Administration Dosage Notes Triamcinolone Acetonide 40mg Injection 05/19/2018 1 mL Kenalog 05/29/2013 1 Medical (General) History Medical History History ICD Code hypertension Diabetes Anxiety diverticulitis Surgical History Surgery Date(Month/Year) appendectomy vasectomy circumcision 2020 colonoscopy 03/2022
--- NOTE | 2025-07-30 06:30 | NM_ITS ---
APPROVED REPORT Exam: Nuclear Stress Test Indication: Abnormal EKG, HTN, DM, High cholesterol, Family history Patient Location: Outpatient Stress Tech: Baylee Figueredo [place] Tech:Radha Fernández, ARRT, RT (R)(N) Ht: 5 ft 9 in Wt: 193 lbs HR: 68 bpm BP: 153/85 mmHg BSA: 2.03 m2 TID: 1.00 BMI: 28.4 History: Abnormal EKG, HTN, DM, High cholesterol, Family history Procedure: Patient received 0.4 mg of intravenous Lexiscan, resting heart rate 68 bpm, resting blood pressure 153/85 mmHg, with Lexiscan maximum heart rate achieved was 79 bpm which is % of the maximum predicted heart rate and blood pressure was 102/58 mmHg. With Lexiscan, patient denied any complaint of chest pain. Cardiac Stress and Resting SPECT Images: Cardiac Stress and Resting SPECT images were obtained using technetium 99m Myoview 32.0 mCi stress and 10.88 mCi at rest. Resting and stress imaging in supine and prone positions demonstrate a small-sized, mild, reversible perfusion defect in the basal inferior LV wall. Gated imaging demonstrates normal global LV systolic function. LVEF is calculated at 54%. Conclusion: Small-sized, mild, reversible perfusion defect in the basal inferior LV wall. Findings are suggestive of reversible ischemia. Gated imaging demonstrates normal global LV systolic function. LVEF is calculated at 54%. Electronically signed by : Nakita Morocho MD 07/30/2025 18:11:51
[2025-07-30] MEDS: ISOTOPE MYOVIEW (PER STUDY) 1 DOSE IV (08:38)
[2025-07-30] MEDS: SODIUM CHLORIDE 0.9% 10ML SYR (RAD ONLY) 10 ML IV ×2 (08:38)
== END 2025-07-30 23:59 | disposition home or self-care (01) ==
LOC: RAD 06:22
PROVIDERS: PCP Family Medicine; Visit Provider Physician Assistant
DX: E78.00 Pure hypercholesterolemia, unspecified (principal); I10 Essential (primary) hypertension; E11.9 Type 2 diabetes mellitus without complications; R94.31 Abnormal electrocardiogram [ECG] [EKG]; R94.39 Abnormal result of other cardiovascular function study; R79.89 Other specified abnormal findings of blood chemistry; Z82.49 Family history of ischemic heart disease and other diseases of the circulatory system
CPT/HCPCS: 78452; 93017; 93018; A9502; J2785